=== PATIENT | female | born 1935 | race Caucasian/White ===

== ENCOUNTER → 2019-05-11 | Outpatient (CLI) | payer MEDICARE ==
[2017-12-06 11:06] VITALS: BP 126/90
[~2019-05-11] MED LIST: AMLO10TA8 PO; HYDR-3164 PO; INSU100I13 SQ; METF500T16 PO; NAPR-514 PO
[2019-05-11 12:27] LABS: BASO % 1 % (0-3); EOS # 0.1 x10^3/uL (0.0-0.7); EOS % 1 % (0-3); HEMATOCRIT 38.1 % (36.0-47.0); HEMOGLOBIN 12.6 g/dL (12.0-15.5); LYMPH # 2.4 x10^3/uL (1.0-4.8); LYMPH % 27 % (24-48); MEAN CORPUSCULAR HEMOGLOBIN 30 pg (25-35); MEAN CORPUSCULAR HGB CONC 33 g/dL (31-37); MEAN CORPUSCULAR VOLUME 90 fL (79-100); MONO # 0.8 x10^3/uL (0.0-1.1); MONO % 9 % (0-9); NEUT # 5.6 x10^3uL (1.8-7.7); NEUT % 63 % (31-73); PLATELET COUNT 265 x10^3/uL (140-400); RED BLOOD COUNT 4.24 x10^6/uL (3.50-5.40); RED CELL DISTRIBUTION WIDTH 13.7 % (11.5-14.5); WHITE BLOOD COUNT 8.9 x10^3/uL (4.0-11.0)
[2019-05-11 12:32] LABS: ALBUMIN 3.6 g/dL (3.4-5.0); ALBUMIN/GLOBULIN RATIO 0.8 (1.0-1.7); CALCIUM 9.7 mg/dL (8.5-10.1); CREATININE 0.9 mg/dL (0.6-1.0); GFR 59.9; POTASSIUM 4.6 mmol/L (3.5-5.1); TOTAL BILIRUBIN 0.3 mg/dL (0.2-1.0); TOTAL PROTEIN 8.1 g/dL (6.4-8.2); URIC ACID 5.7 mg/dL (2.6-6.0)
== END | disposition home or self-care (01) ==
LOC: LAB 11:27
PROVIDERS: ATTEND Podiatrist
DX: M10.072 Idiopathic gout, left ankle and foot (principal); R60.0 Localized edema
CPT/HCPCS: 36415; 80053; 84550; 85025

== ENCOUNTER 2020-06-11 07:37 | Emergency (ER) | payer MEDICARE ==
[~2020-06-11] VITALS: Ht 165.1 cm; Wt 100.0 kg
[~2020-06-11 07:37] MED LIST changes: +IBUP-1670 PO; +INSU100V6 SQ
--- NOTE | 2020-06-11 08:25 | RAD ---
Exam performed: CT scan of the head without contrast. Date of Service: 06/11/2020. Comparison: CT head without contrast from 03/16/2011. Clinical History: Right-sided weakness. Technique: Helical acquisitions are obtained from the foramen magnum to the vertex without intravenous administration of contrast. Findings: The ventricles are midline without evidence of dilatation. Normal crain-white differentiation is maintained. There is no extra axial fluid collection, intraparenchymal hemorrhage or mass lesion. The visualized portions of the orbits, paranasal sinuses and the mastoid air cells appear clear. The calvarium is intact. Impression: 1. No acute intracranial process detected. PQRS Compliance Statement: One or more of the following individualized dose reduction techniques were utilized for this examination: 1. Automated exposure control 2. Adjustment of the mA and/or kV according to patient size 3. Use of iterative reconstruction technique Electronically signed by: Shelby Castellanos MD (06/11/2020 8:22 AM) [id number]
[2020-06-11 08:28] LABS: BASO # 0.1 x10^3/uL (0.0-0.2); BASO % 1 % (0-3); EOS # 0.1 x10^3/uL (0.0-0.7); EOS % 1 % (0-3); HEMATOCRIT 35.7 % (36.0-47.0); HEMOGLOBIN 11.9 g/dL (12.0-15.5); LYMPH # 1.4 x10^3/uL (1.0-4.8); LYMPH % 14 % (24-48); MEAN CORPUSCULAR HEMOGLOBIN 30 pg (25-35); MEAN CORPUSCULAR HGB CONC 33 g/dL (31-37); MEAN CORPUSCULAR VOLUME 89 fL (79-100); MONO # 0.7 x10^3/uL (0.0-1.1); MONO % 8 % (0-9); NEUT # 7.6 x10^3/uL (1.8-7.7); NEUT % 77 % (31-73); PLATELET COUNT 260 x10^3/uL (140-400); RED CELL DISTRIBUTION WIDTH 14.2 % (11.5-14.5); WHITE BLOOD COUNT 9.9 x10^3/uL (4.0-11.0)
[2020-06-11 08:38] LABS: CALCIUM 9.2 mg/dL (8.5-10.1); CREATININE 1.2 mg/dL (0.6-1.0); GFR 42.9; POTASSIUM 4.5 mmol/L (3.5-5.1)
[2020-06-11 08:43] LABS: ALBUMIN 3.4 g/dL (3.4-5.0); ALBUMIN/GLOBULIN RATIO 0.9 (1.0-1.7); MAGNESIUM 1.9 mg/dL (1.8-2.4); TOTAL BILIRUBIN 0.3 mg/dL (0.2-1.0); TOTAL PROTEIN 7.1 g/dL (6.4-8.2)
[2020-06-11] MEDS ORDERED: dilTIAZem IV PUSH 25 MG/5 ML VIAL IVP ONE (10:15)
[2020-06-11] MEDS ORDERED: DILTIAZEM HCL 125 MG in IV NORMAL SALINE 100ML 100 ML IV PRN (10:15)
--- NOTE | 2020-06-11 11:54 | PHYS DOC ---
Past Medical History Past Medical History: Arthritis, Diabetes-Type II, Gallstones, Hypertension, Other Additional Past Medical Histor: SHINGLES Past Surgical History: Cholecystectomy, Tubal ligation Additional Past Surgical Histo: gallstones Smoking Status: Never Smoker Alcohol Use: None Drug Use: None General Adult EDM: Chief Complaint: WEAKNESS/GENERALIZED HPI: HPI: Patient is a 85 year old female who was brought here by EMS from home due to generalized weakness when she woke up this morning. Patient denies any local weakness, no nausea vomiting, no slurred speech, no headache. Patient had chronic hip problem, chronic back problem, when she woke up this morning she tried to get out of her bed but she was too weak to get out. Her family tried to get her out of the bed but they could not. EMS were called to assist. Patient was able to have out of her bed and then was able to ambulate around the house a little bit but still feels very weak so EMS brought her here for evaluation. Review of Systems: Review of Systems: Constitutional: Denies fever or chills. [] Eyes: Denies change in visual acuity. [] HENT: Denies nasal congestion or sore throat. [] Respiratory: Denies cough or shortness of breath. [] Cardiovascular: Denies chest pain or edema. [] GI: Denies abdominal pain, nausea, vomiting, bloody stools or diarrhea. [] : Denies dysuria. [] Musculoskeletal: Denies back pain or joint pain. [] Integument: Denies rash. [] Neurologic: Denies headache, focal weakness or sensory changes. [] Endocrine: Denies polyuria or polydipsia. [] Lymphatic: Denies swollen glands. [] Psychiatric: Denies depression or anxiety. [] Heart Score: Risk Factors: Risk Factors: DM, Current or recent (<one month) smoker, HTN, HLP, family history of CAD, obesity. Risk Scores: Score 0 - 3: 2.5% MACE over next 6 weeks - Discharge Home Score 4 - 6: 20.3% MACE over next 6 weeks - Admit for Clinical Observation Score 7 - 10: 72.7% MACE over next 6 weeks - Early Invasive Strategies Current Medications: Current Medications Medications (Trade) Dose Ordered Sig/[place] Start Time Stop Time Status Last Admin Dose Admin Diltiazem HCl (Cardizem Iv Push) 20 mg 1X ONCE 7/26/20 10:15 06/11/20 10:27 DC Diltiazem HCl 125 mg/Sodium Chloride 125 ml @ 5 mls/hr CONT PRN 06/11/20 10:15 06/11/20 10:27 DC Allergies: Allergies: Allergies Coded Allergies Type Severity Reaction Last Updated Verified No Known Drug Allergies 09/24/16 No Physical Exam: PE: Constitutional: Well developed, well nourished, no acute distress, non-toxic appearance. [] HENT: Normocephalic, atraumatic, bilateral external ears normal, oropharynx moist, no oral exudates, nose normal. [] Eyes: PERRLA, EOMI, conjunctiva normal, no discharge. [] Neck: Normal range of motion, no tenderness, supple, no stridor. [] Cardiovascular:Heart rate regular rhythm, no murmur [] Lungs & Thorax: Bilateral breath sounds clear to auscultation [] Abdomen: Bowel sounds normal, soft, no tenderness, no masses, no pulsatile masses. [] Skin: Warm, dry, no erythema, no rash. [] Back: No tenderness, no CVA tenderness. [] Extremities: No tenderness, no cyanosis, no clubbing, ROM intact, no edema. [] Neurologic: Alert and oriented X 3, normal motor function, normal sensory function, no focal deficits noted. Patient NIH stroke scale was 0, she was able to move all extremities without a problem, she was awake alert oriented to time place and person Psychologic: Affect normal, judgement normal, mood normal. [] Current Patient Data: Labs: Laboratory Tests Test 06/11/20 08:20 White Blood Count 9.9 x10^3/uL (4.0-11.0) Red Blood Count 4.00 x10^6/uL (3.50-5.40) Hemoglobin 11.9 g/dL (12.0-15.5) L Hematocrit 35.7 % (36.0-47.0) L Mean Corpuscular Volume 89 fL (79-100) Mean Corpuscular Hemoglobin 30 pg (25-35) Mean Corpuscular Hemoglobin Concent 33 g/dL (31-37) Red Cell Distribution Width 14.2 % (11.5-14.5) Platelet Count 260 x10^3/uL (140-400) Neutrophils (%) (Auto) 77 % (31-73) H Lymphocytes (%) (Auto) 14 % (24-48) L Monocytes (%) (Auto) 8 % (0-9) Eosinophils (%) (Auto) 1 % (0-3) Basophils (%) (Auto) 1 % (0-3) Neutrophils # (Auto) 7.6 x10^3/uL (1.8-7.7) Lymphocytes # (Auto) 1.4 x10^3/uL (1.0-4.8) Monocytes # (Auto) 0.7 x10^3/uL (0.0-1.1) Eosinophils # (Auto) 0.1 x10^3/uL (0.0-0.7) Basophils # (Auto) 0.1 x10^3/uL (0.0-0.2) Sodium Level 138 mmol/L (136-145) Potassium Level 4.5 mmol/L (3.5-5.1) Chloride Level 102 mmol/L (98-107) Carbon Dioxide Level 27 mmol/L (21-32) Anion Gap 9 (6-14) Blood Urea Nitrogen 34 mg/dL (7-20) H Creatinine 1.2 mg/dL (0.6-1.0) H Estimated GFR (Cockcroft-Gault) 42.9 BUN/Creatinine Ratio 28 (6-20) H Glucose Level 234 mg/dL (70-99) H Calcium Level 9.2 mg/dL (8.5-10.1) Magnesium Level 1.9 mg/dL (1.8-2.4) Total Bilirubin 0.3 mg/dL (0.2-1.0) Aspartate Amino Transferase (AST) 10 U/L (15-37) L Alanine Aminotransferase (ALT) 12 U/L (14-59) L Alkaline Phosphatase 103 U/L (46-116) Troponin I Quantitative 0.027 ng/mL (0.000-0.055) RS-Ogx-X-Type Natriuretic Peptide 578 pg/mL (0-449) H Total Protein 7.1 g/dL (6.4-8.2) Albumin 3.4 g/dL (3.4-5.0) Albumin/Globulin Ratio 0.9 (1.0-1.7) L Laboratory Tests 06/11/20 08:20 Laboratory Tests 06/11/20 08:20 Vital Signs: Vital Signs Date Time Temp Pulse Resp B/P (MAP) Pulse Ox O2 Delivery O2 Flow Rate FiO2 06/11/20 08:09 97.6 82 18 198/78 (118) 96 Room Air 97.6 EKG: EKG: EKG was read at 815, heart rate 76 bpm, normal sinus rhythm, no ST segment elevation. Radiology/Procedures: Radiology/Procedures: [][facility] [address] [place] [address] IMAGING REPORT Signed PATIENT: PHILLIP WHITTAKER JACCOUNT: [id number] : 1935 LOCATION: ER AGE: 85 SEX: F EXAM STATUS: REG ER ORD. PHYSICIAN: ALEE DAWSON DO REASON: left side weakness PROCEDURE: CT HEAD WO CONTRAST Exam performed: CT scan of the head without contrast. Date of Service: 06/11/2020. Comparison: CT head without contrast from 03/16/2011. Clinical History: Right-sided weakness. Technique: Helical acquisitions are obtained from the foramen magnum to the vertex without intravenous administration of contrast. Findings: The ventricles are midline without evidence of dilatation. Normal crain-white differentiation is maintained. There is no extra axial fluid collection, intraparenchymal hemorrhage or mass lesion. The visualized portions of the orbits, paranasal sinuses and the mastoid air cells appear clear. The calvarium is intact. Impression: 1. No acute intracranial process detected. PQRS Compliance Statement: One or more of the following individualized dose reduction techniques were utilized for this examination: 1. Automated exposure control 2. Adjustment of the mA and/or kV according to patient size 3. Use of iterative reconstruction technique Electronically signed by: Shelby Castellanos MD (06/11/2020 8:22 AM) [id number] DICTATED and SIGNED BY: SHELBY CASTELLANOS MD DATE: 06/11/20 0822 Course & Med Decision Making: Course & Med Decision Making Pertinent Labs and Imaging studies reviewed. (See chart for details) Patient is a 84-year-old female who was evaluated in ER due to left hip pain, generalized weakness when she woke up this morning. Patient condition improved significantly, she was able to get up and walk now. Patient denies any headache, no neck pain, no abdominal pain, no nausea vomiting. Patient had no focal neurological deficits. Patient did not had a stroke or strokelike symptoms. Patient NIH stroke scale was 0. Patient's son was here to take her home. Armanion Disclaimer: Lev Disclaimer: This electronic medical record was generated, in whole or in part, using a voice recognition dictation system. Departure Departure Impression: Primary Impression: Degenerative joint disease (DJD) of hip Additional Impression: Weakness Disposition: HOME, SELF-CARE Condition: STABLE Referrals: TIANA MANZO MD (PCP) PLEASE FOLLOW UP WITH YOUR DOCTOR NEEDED NEXT WEEK Patient Instructions: Arthritis, Degenerative-Brief, Weakness Justicifation of Admission Dx: Justifications for Admission: Justification of Admission Dx: N/A ALEE DAWSON DO Jun 11, 2020 11:54
[2020-06-11 12:06] VITALS: BP 178/78
--- NOTE | 2020-06-13 03:12 | EKG ---
[facility] [address] [place] [address] Test Date: 2020-06-11 Test Time: 08:14:33 Pat Name: PHILLIP WHITTAKER Department: Room: Gender: F Engineering And Operations Director: : 1935 Requested By: ALEE DAWSON Order Number: [id number] Reading MD: Measurements Intervals [place] Rate: 76 P: -43 [place]: 144 QRS: -6 QRSD: 94 T: 5 QT: 428 QTc: 486 Interpretive Statements SINUS RHYTHM LEFTWARD AXIS QRS(T) CONTOUR ABNORMALITY CONSIDER ANTEROSEPTAL MYOCARDIAL DAMAGE PROLONGED QT POSSIBLY ABNORMAL ECG RI6.01 No previous ECG available for comparison
== END 2020-06-11 12:28 | disposition home or self-care (01) ==
LOC: ER 07:37
DX: M16.12 Unilateral primary osteoarthritis, left hip (principal); R53.1 Weakness; R51 Headache; E11.9 Type 2 diabetes mellitus without complications; I10 Essential (primary) hypertension; Z90.49 Acquired absence of other specified parts of digestive tract; Z98.51 Tubal ligation status
CPT/HCPCS: 36415; 70450; 80053; 83735; 83880; 84484; 85025; 93005; 99285-25

== ENCOUNTER 2020-06-29 20:22 | Inpatient (IN) | payer MEDICARE ==
[~2020-06-29] VITALS: Ht 162.6 cm; Wt 97.1 kg
[2020-06-29] MEDS ORDERED: MORPHINE SULFATE 2 MG/ML VIAL. IV/SQ PRN (21:00)
[2020-06-29] MEDS ORDERED: VANCOMYCIN PER PHARMACY MC PRN (21:00)
[2020-06-29 21:12] LABS: BASO # 0.1 x10^3/uL (0.0-0.2); BASO % 1 % (0-3); EOS # 0.2 x10^3/uL (0.0-0.7); EOS % 2 % (0-3); HEMATOCRIT 34.9 % (36.0-47.0); HEMOGLOBIN 11.5 g/dL (12.0-15.5); LYMPH # 2.1 x10^3/uL (1.0-4.8); LYMPH % 20 % (24-48); MEAN CORPUSCULAR HEMOGLOBIN 30 pg (25-35); MEAN CORPUSCULAR HGB CONC 33 g/dL (31-37); MEAN CORPUSCULAR VOLUME 91 fL (79-100); MONO % 10 % (0-9); NEUT % 68 % (31-73); PLATELET COUNT 267 x10^3/uL (140-400); RED BLOOD COUNT 3.86 x10^6/uL (3.50-5.40); WHITE BLOOD COUNT 10.3 x10^3/uL (4.0-11.0)
[2020-06-29 21:21] LABS: CALCIUM 8.8 mg/dL (8.5-10.1); CREATININE 1.4 mg/dL (0.6-1.0); GFR 35.9
[2020-06-29 21:27] LABS: ALBUMIN/GLOBULIN RATIO 0.7 (1.0-1.7); TOTAL BILIRUBIN 0.3 mg/dL (0.2-1.0); TOTAL PROTEIN 7.3 g/dL (6.4-8.2)
[2020-06-29] MEDS ORDERED: PIPERACILLIN/TAZOBACTAM 4.5 GM in IV NORMAL SALINE 100ML 100 ML IV ONE (21:30)
--- NOTE | 2020-06-29 21:41 | RAD ---
Examination: Unilateral venous Doppler. Technique: Ultrasound evaluation of the left lower extremity was performed from the groin to the upper calf with kimbrough scale, spectral and color doppler evaluation. Indication: Leg swelling Findings: There is normal venous flow and compressibility of left common femoral vein, femoral vein, popliteal vein, and visualized proximal calf veins. Soft tissue swelling about the left lower extremity. Impression: No evidence for deep vein thrombosis of left lower extremity from the level of the calf veins to the groins. Electronically signed by: Tevin Castano MD (06/29/2020 9:38 PM) GABE
--- NOTE | 2020-06-29 21:48 | PHYS DOC ---
Past Medical History Past Medical History: Arthritis, Diabetes-Type II, Gallstones, Hypertension, Other Additional Past Medical Histor: SHINGLES (ZELDA ESPINOZA APRN) Past Surgical History: Cholecystectomy, Tubal ligation Additional Past Surgical Histo: gallstones (ZELDA ESPINOZA APRN) Smoking Status: Never Smoker Alcohol Use: None Drug Use: None (ZELDA ESPINOZA APRN) General Adult EDM: Chief Complaint: WOUND CHECK HPI: HPI: Patient is a 85 year old female with history of diabetes type 2, hypertension, morbidly obese, who presents to the ED today complaining of a wound on the left castanon that she noted 1 week ago. Patient reports it was a blister that opened up and has become a wound. Denies any fever. (ZELDA ESPINOZA APRN) Review of Systems: Review of Systems: Constitutional: Denies fever or chills. [] Eyes: Denies change in visual acuity. [] HENT: Denies nasal congestion or sore throat. [] Respiratory: Denies cough or shortness of breath. [] Cardiovascular: Denies chest pain or edema. [] GI: Denies abdominal pain, nausea, vomiting, bloody stools or diarrhea. [] : Denies dysuria. [] Musculoskeletal: Denies back pain or joint pain. [] Integument: Reports left castanon wound Neurologic: Denies headache, focal weakness or sensory changes. [] Endocrine: Denies polyuria or polydipsia. [] Lymphatic: Denies swollen glands. [] Psychiatric: Denies depression or anxiety. [] (ZELDA ESPINOZA APRN) Heart Score: Risk Factors: Risk Factors: DM, Current or recent (<one month) smoker, HTN, HLP, family history of CAD, obesity. Risk Scores: Score 0 - 3: 2.5% MACE over next 6 weeks - Discharge Home Score 4 - 6: 20.3% MACE over next 6 weeks - Admit for Clinical Observation Score 7 - 10: 72.7% MACE over next 6 weeks - Early Invasive Strategies (ZELDA ESPINOZA APRN) Current Medications: Current Medications Medications (Trade) Dose Ordered Sig/[place] Start Time Stop Time Status Last Admin Dose Admin Morphine Sulfate (Morphine Sulfate) 2 mg PRN Q15MIN PRN 06/29/20 21:00 06/30/20 20:59 Piperacillin Sod/ Tazobactam Sod 4.5 gm/Sodium Chloride 100 ml @ 200 mls/hr 1X ONCE 06/29/20 21:30 06/29/20 21:59 Sodium Chloride 1,000 ml @ 1,000 mls/hr Q1H 06/29/20 21:30 06/29/20 23:11 Vancomycin HCl (Vanco Per Pharmacy) 1 each PRN DAILY PRN 06/29/20 21:00 Vancomycin HCl 2 gm/Sodium Chloride 500 ml @ 250 mls/hr 1X ONCE 06/29/20 22:00 06/29/20 23:59 (ZELDA ESPINOZA APRN) Allergies: Allergies: Allergies Coded Allergies Type Severity Reaction Last Updated Verified No Known Drug Allergies 09/24/16 No (ZELDA ESPINOZA SECURITY CONTROLS ASSESSOR) Physical Exam: PE: Constitutional: Well developed, well nourished, no acute distress, non-toxic appearance. [] HENT: Normocephalic, atraumatic, bilateral external ears normal, oropharynx moist, no oral exudates, nose normal. [] Eyes: PERRLA, EOMI, conjunctiva normal, no discharge. [] Neck: Normal range of motion, no tenderness, supple, no stridor. [] Cardiovascular:Heart rate regular rhythm, no murmur [] Lungs & Thorax: Bilateral breath sounds clear to auscultation [] Abdomen: Bowel sounds normal, soft, no tenderness, no masses, no pulsatile masses. [] Skin: Left castanon with an open wound approximately 5 x 5 cm with surrounding cellulitis moderate in nature. +2 bilateral pedal pulses. Back: No tenderness, no CVA tenderness. [] Extremities: No tenderness, no cyanosis, no clubbing, ROM intact, no edema. [] Neurologic: Alert and oriented X 3, normal motor function, normal sensory function, no focal deficits noted. [] Psychologic: Affect normal, judgement normal, mood normal. [] (ZELDA ESPINOZA SECURITY CONTROLS ASSESSOR) Current Patient Data: Labs: Laboratory Tests Test 06/29/20 20:50 White Blood Count 10.3 x10^3/uL (4.0-11.0) Red Blood Count 3.86 x10^6/uL (3.50-5.40) Hemoglobin 11.5 g/dL (12.0-15.5) L Hematocrit 34.9 % (36.0-47.0) L Mean Corpuscular Volume 91 fL (79-100) Mean Corpuscular Hemoglobin 30 pg (25-35) Mean Corpuscular Hemoglobin Concent 33 g/dL (31-37) Red Cell Distribution Width 14.0 % (11.5-14.5) Platelet Count 267 x10^3/uL (140-400) Neutrophils (%) (Auto) 68 % (31-73) Lymphocytes (%) (Auto) 20 % (24-48) L Monocytes (%) (Auto) 10 % (0-9) H Eosinophils (%) (Auto) 2 % (0-3) Basophils (%) (Auto) 1 % (0-3) Neutrophils # (Auto) 7.0 x10^3/uL (1.8-7.7) Lymphocytes # (Auto) 2.1 x10^3/uL (1.0-4.8) Monocytes # (Auto) 1.0 x10^3/uL (0.0-1.1) Eosinophils # (Auto) 0.2 x10^3/uL (0.0-0.7) Basophils # (Auto) 0.1 x10^3/uL (0.0-0.2) Sodium Level 137 mmol/L (136-145) Potassium Level 4.0 mmol/L (3.5-5.1) Chloride Level 103 mmol/L (98-107) Carbon Dioxide Level 25 mmol/L (21-32) Anion Gap 9 (6-14) Blood Urea Nitrogen 30 mg/dL (7-20) H Creatinine 1.4 mg/dL (0.6-1.0) H Estimated GFR (Cockcroft-Gault) 35.9 BUN/Creatinine Ratio 21 (6-20) H Glucose Level 323 mg/dL (70-99) H Lactic Acid Level 1.3 mmol/L (0.4-2.0) Calcium Level 8.8 mg/dL (8.5-10.1) Total Bilirubin 0.3 mg/dL (0.2-1.0) Aspartate Amino Transferase (AST) 8 U/L (15-37) L Alanine Aminotransferase (ALT) 13 U/L (14-59) L Alkaline Phosphatase 107 U/L (46-116) Total Protein 7.3 g/dL (6.4-8.2) Albumin 3.0 g/dL (3.4-5.0) L Albumin/Globulin Ratio 0.7 (1.0-1.7) L Procalcitonin < 0.10 ng/mL (0.00-0.10) Laboratory Tests 06/29/20 20:50 Laboratory Tests 06/29/20 20:50 Vital Signs: Vital Signs Date Time Temp Pulse Resp B/P (MAP) Pulse Ox O2 Delivery O2 Flow Rate FiO2 06/29/20 20:30 97.9 80 18 222/80 (127) 100 Room Air 97.9 (ZELDA ESPINOZA APRN) EKG: EKG: [] (ZELDA ESPINOZA APRN) Radiology/Procedures: Radiology/Procedures: []PROCEDURE: VENOUS LOWER EXTREMITY LEFT Examination: Unilateral venous Doppler. Technique: Ultrasound evaluation of the left lower extremity was performed from the groin to the upper calf with kimbrough scale, spectral and color doppler evaluation. Indication: Leg swelling Findings: There is normal venous flow and compressibility of left common femoral vein, femoral vein, popliteal vein, and visualized proximal calf veins. Soft tissue swelling about the left lower extremity. Impression: No evidence for deep vein thrombosis of left lower extremity from the level of the calf veins to the groins. Electronically signed by: Tevin Montes MD (06/29/2020 9:38 PM) [facility] DICTATED and SIGNED BY: TEVIN MONTES MD DATE: 06/29/202137 (ZELDA ESPINOZA APRN) Course & Med Decision Making: Course & Med Decision Making Pertinent Labs and Imaging studies reviewed. (See chart for details) This is a 85-year-old female patient presenting to the ED today with an open infected wound on the left castanon. CBC with a normal WBC, lactic is normal, CMP with glucose of 325. Patient was started on the sepsis protocol. Patient will be admitted for IV antibiotics Spoke with Dr. Bonner who accepted patient for admission (ZELDA ESPINOZA APRN) Dragon Disclaimer: Dragon Disclaimer: This electronic medical record was generated, in whole or in part, using a voice recognition dictation system. (ZELDA ESPINOZA APRN) Dragon Disclaimer: I have personally interviewed and examined patient. All charts, labs and imaging studies were reviewed. I agreed with the PA/EXHIBIT SPECIALIST's findings, exam and plan of care (ALEE DAWSON DO) Departure Departure Impression: Primary Impression: Left leg cellulitis Disposition: ADMITTED INPATIENT Condition: STABLE Referrals: TIANA MANZO MD (PCP) Justicifation of Admission Dx: Justifications for Admission: Justification of Admission Dx: Yes Sepsis: Bacteremia (ZELDA ESPINOZA APRN) ZELDA ESPINOZA APRN Jun 29, 2020 21:48 ALEE DAWSON DO Jun 30, 2020 03:03
[2020-06-29] MEDS ORDERED: VANCOMYCIN 2 GM in IV NORMAL SALINE 500ML BAG 500 ML IV ONE (22:00)
[2020-06-29] MEDS: IV NORMAL SALINE 1000ML BAG 1,000 ML IV SCH ×2 (22:03→22:46)
--- NOTE | 2020-06-30 01:53 | NUR ---
Pharmacy Vancomycin Dosing Note S:Consulted to monitor and dose vancomycin started 06/29/20. O:PHILLIP WHITTAKER is a 85 year old F with Cellulitis . Height: 5 feet, 4 inches Weight: 81.8 kg Bell Body Weight: 54.70 Adjusted Body Weight: 65.54 Dosing Weight: Actual Other Antibiotics: ZOSYN X1 IN ER LABS: Last BUN: 30 Last Creatinine: 1.4 Creatinine Clearance: 30.5 mL/min Last WBC: 10.3 Last Procalcitonin: Tmax (past 24 hours): Microbiology: I/O: Drug Levels: Last level: on at Last dose given 06/29/20 at 2300 Vancomycin Dosing: Loading Dose: 2000 mg x1 Dosing Weight: Actual Target Trough: 10-20 A: Based on: WT AND CRCL P: 1. Begin Vancomycin 1250 mg IV q24h 2. Follow up Trough level on 07/01/20 at 2230 3. Pharmacy will continue to monitor, follow and adjust therapy as needed. FRANSISCO ROMAN RPH, 06/30/20 0153 Signed: 06/30/20 at 0153 by FRANSISCO ROMAN RPH PHA
--- NOTE | 2020-06-30 08:09 | NUR ---
This RN paged Dr. Bonner to obtain Sliding Scale Insulin orders.
[2020-06-30] MEDS ORDERED: DEXTROSE 50% 25 GM / 50ML DISP.SYRIN. IV PRN (08:30)
--- NOTE | 2020-06-30 09:00 | PDOC1 ---
History and Physical Date of Admission Date of Admission DATE: 06/30/20 TIME: 08:59 Identification/Chief Complaint Chief Complaint SEEN IN ER WITH CELLULITIS LEFT LEG 85 year old female with history of diabetes type 2, hypertension, morbidly obese, who presents to the ED today complaining of a wound on the left castanon that she noted 1 week ago. // blister that opened up and has become a wound. Denies any fever., CURRENTLY ON IV ZOSYN, VANC Past Medical History Past Medical History Past Medical History Past Medical History Past Medical History: Arthritis, Diabetes-Type II, Gallstones, Hypertension, Other Additional Past Medical Histor: SHINGLES Past Surgical History: Cholecystectomy, Tubal ligation Additional Past Surgical Histo: gallstones Smoking Status: Never Smoker Alcohol Use: None Drug Use: None fhx obesity Cardiovascular: HTN, Hyperlipidemia Pulmonary: Bronchitis GI: GERD Musculoskeletal: Osteoarthritis Infectious disease: No pertinent hx Renal/: No pertinent hx Endocrine: Diabetes Past Surgical History Past Surgical History: No pertinent history Family History Family History: No Significant, Hypertension Social History Smoke: No ALCOHOL: none Drugs: None Current Problem List Problem List Problems Medical Problems: (1) Left leg cellulitis Status: Acute Current Medications Current Medications Current Medications Sodium Chloride 1,000 ml @ 1,000 mls/hr Q1H IV Last administered on 06/29/20at 22:46; Start 06/29/20 at 21:30; Stop 06/29/20 at 23:11; Status DC Piperacillin Sod/ Tazobactam Sod 4.5 gm/Sodium Chloride 100 ml @ 200 mls/hr 1X ONCE IV Last administered on 06/29/20at 22:04; Start 06/29/20 at 21:30; Stop 06/29/20 at 21:59; Status DC Vancomycin HCl (Vanco Per Pharmacy) 1 each PRN DAILY PRN MC SEE COMMENTS Last administered on 06/30/20at 01:51; Start 06/29/20 at 21:00 Morphine Sulfate (Morphine Sulfate) 2 mg PRN Q15MIN PRN IV/SQ PAIN GREATER THAN 3/10 Last administered on 06/30/20at 05:32; Start 06/29/20 at 21:00; Stop 06/30/20 at 20:59 Vancomycin HCl 2 gm/Sodium Chloride 500 ml @ 250 mls/hr 1X ONCE IV Last administered on 8/13/20at 22:45; Start 06/29/20 at 22:00; Stop 06/29/20 at 23:59; Status DC Vancomycin HCl 1.25 gm/Sodium Chloride 250 ml @ 167 mls/hr Q24H IV ; Start 06/30/20 at 23:00 Vancomycin HCl (Vancomycin Trough Level) 1 each 1X ONCE MC ; Start 07/01/20 at 22:30; Stop 07/01/20 at 22:31 Insulin Human Lispro (HumaLOG) 0-5 UNITS TIDWMEALS SQ ; Start 06/30/20 at 12:00 Dextrose (Dextrose 50%-Water Syringe) 12.5 gm PRN Q15MIN PRN IV SEE COMMENTS; Start 06/30/20 at 08:30 Active Scripts Active Ibuprofen 200 Mg Tablet 600 Mg PO TIDAFTMEAL 14 Days [place] 5-325 Tablet (Acetaminophen/Hydrocodone Bitart) 1 Each Tablet 1 Tab PO PRN Q6HRS PRN Reported Humalog (Insulin Lispro) 100 Unit/1 Ml Vial 0 SQ SSI Lantus Solostar (Insulin Glargine,Hum.rec.anlog) 100 Unit/1 Ml Insuln.pen 20 Unit SQ QHS Amlodipine Besylate 10 Mg Tablet 10 Mg PO DAILY Metformin Hcl 500 Mg Tablet 500 Mg PO BIDWMEALS Allergies Allergies: Coded Allergies: No Known Drug Allergies (Unverified , 09/24/16) ROS Review of System Constitutional: Denies fever or chills. [] Eyes: Denies change in visual acuity. [] HENT: Denies nasal congestion or sore throat. [] Respiratory: Denies cough or shortness of breath. [] Cardiovascular: Denies chest pain or edema. [] GI: Denies abdominal pain, nausea, vomiting, bloody stools or diarrhea. [] : Denies dysuria. [] Musculoskeletal: Denies back pain or joint pain. [] Integument: Reports left castanon wound Neurologic: Denies headache, focal weakness or sensory changes. [] Endocrine: Denies polyuria or polydipsia. [] Lymphatic: Denies swollen glands. [] Psychiatric: Denies depression or anxiety. [] 14 PT ROS OTHERWISE NEG Physical Exam Physical Exam Constitutional: Well developed, well nourished, no acute distress, non-toxic appearance. [] HENT: Normocephalic, atraumatic, bilateral external ears normal, oropharynx moist, no oral exudates, nose normal. [] Eyes: PERRLA, EOMI, conjunctiva normal, no discharge. [] Neck: Normal range of motion, no tenderness, supple, no stridor. [] Cardiovascular:Heart rate regular rhythm, no murmur [] Lungs & Thorax: Bilateral breath sounds clear to auscultation [] Abdomen: Bowel sounds normal, soft, no tenderness, no masses, no pulsatile masses. [] Skin: Left castanon with an open wound approximately 5 x 5 cm with surrounding cellulitis moderate in nature. +2 bilateral pedal pulses. Back: No tenderness, no CVA tenderness. [] Extremities: No tenderness, no cyanosis, no clubbing, ROM intact, no edema. [] Neurologic: Alert and oriented X 3, normal motor function, normal sensory function, no focal deficits noted. [] Psychologic: Affect normal, judgement normal, mood normal. [] General: Alert, Oriented X3, Cooperative, No acute distress HEENT: Atraumatic, EOMI, Mucous membr. moist/pink Lungs: Clear to auscultation, Normal air movement Heart: RRR Breasts: Not examined Abdomen: Soft Rectal Exam: not examined PELVIC: Examination not indicated Neuro: Normal speech, Strength at 5/5 X4 ext, Sensation intact, Cranial nerves 3-12 NL Psych/Mental Status: Mental status NL, Mood NL Vitals Vitals Vital Signs Date Time Temp Pulse Resp B/P (MAP) Pulse Ox O2 Delivery O2 Flow Rate FiO2 06/30/20 05:32 18 99 Room Air 06/30/20 05:05 66 156/64 (94) 06/29/20 20:30 97.9 97.9 Labs Labs Laboratory Tests Test 06/29/20 20:50 06/30/20 07:52 White Blood Count 10.3 x10^3/uL (4.0-11.0) Red Blood Count 3.86 x10^6/uL (3.50-5.40) Hemoglobin 11.5 g/dL (12.0-15.5) Hematocrit 34.9 % (36.0-47.0) Mean Corpuscular Volume 91 fL (79-100) Mean Corpuscular Hemoglobin 30 pg (25-35) Mean Corpuscular Hemoglobin Concent 33 g/dL (31-37) Red Cell Distribution Width 14.0 % (11.5-14.5) Platelet Count 267 x10^3/uL (140-400) Neutrophils (%) (Auto) 68 % (31-73) Lymphocytes (%) (Auto) 20 % (24-48) Monocytes (%) (Auto) 10 % (0-9) Eosinophils (%) (Auto) 2 % (0-3) Basophils (%) (Auto) 1 % (0-3) Neutrophils # (Auto) 7.0 x10^3/uL (1.8-7.7) Lymphocytes # (Auto) 2.1 x10^3/uL (1.0-4.8) Monocytes # (Auto) 1.0 x10^3/uL (0.0-1.1) Eosinophils # (Auto) 0.2 x10^3/uL (0.0-0.7) Basophils # (Auto) 0.1 x10^3/uL (0.0-0.2) Sodium Level 137 mmol/L (136-145) Potassium Level 4.0 mmol/L (3.5-5.1) Chloride Level 103 mmol/L (98-107) Carbon Dioxide Level 25 mmol/L (21-32) Anion Gap 9 (6-14) Blood Urea Nitrogen 30 mg/dL (7-20) Creatinine 1.4 mg/dL (0.6-1.0) Estimated GFR (Cockcroft-Gault) 35.9 BUN/Creatinine Ratio 21 (6-20) Glucose Level 323 mg/dL (70-99) Lactic Acid Level 1.3 mmol/L (0.4-2.0) Calcium Level 8.8 mg/dL (8.5-10.1) Total Bilirubin 0.3 mg/dL (0.2-1.0) Aspartate Amino Transf (AST/SGOT) 8 U/L (15-37) Alanine Aminotransferase (ALT/SGPT) 13 U/L (14-59) Alkaline Phosphatase 107 U/L (46-116) Total Protein 7.3 g/dL (6.4-8.2) Albumin 3.0 g/dL (3.4-5.0) Albumin/Globulin Ratio 0.7 (1.0-1.7) Procalcitonin < 0.10 ng/mL (0.00-0.10) Glucose (Fingerstick) 169 mg/dL (70-99) Laboratory Tests Test 06/29/20 20:50 06/30/20 07:52 White Blood Count 10.3 x10^3/uL (4.0-11.0) Red Blood Count 3.86 x10^6/uL (3.50-5.40) Hemoglobin 11.5 g/dL (12.0-15.5) Hematocrit 34.9 % (36.0-47.0) Mean Corpuscular Volume 91 fL (79-100) Mean Corpuscular Hemoglobin 30 pg (25-35) Mean Corpuscular Hemoglobin Concent 33 g/dL (31-37) Red Cell Distribution Width 14.0 % (11.5-14.5) Platelet Count 267 x10^3/uL (140-400) Neutrophils (%) (Auto) 68 % (31-73) Lymphocytes (%) (Auto) 20 % (24-48) Monocytes (%) (Auto) 10 % (0-9) Eosinophils (%) (Auto) 2 % (0-3) Basophils (%) (Auto) 1 % (0-3) Neutrophils # (Auto) 7.0 x10^3/uL (1.8-7.7) Lymphocytes # (Auto) 2.1 x10^3/uL (1.0-4.8) Monocytes # (Auto) 1.0 x10^3/uL (0.0-1.1) Eosinophils # (Auto) 0.2 x10^3/uL (0.0-0.7) Basophils # (Auto) 0.1 x10^3/uL (0.0-0.2) Sodium Level 137 mmol/L (136-145) Potassium Level 4.0 mmol/L (3.5-5.1) Chloride Level 103 mmol/L (98-107) Carbon Dioxide Level 25 mmol/L (21-32) Anion Gap 9 (6-14) Blood Urea Nitrogen 30 mg/dL (7-20) Creatinine 1.4 mg/dL (0.6-1.0) Estimated GFR (Cockcroft-Gault) 35.9 BUN/Creatinine Ratio 21 (6-20) Glucose Level 323 mg/dL (70-99) Lactic Acid Level 1.3 mmol/L (0.4-2.0) Calcium Level 8.8 mg/dL (8.5-10.1) Total Bilirubin 0.3 mg/dL (0.2-1.0) Aspartate Amino Transf (AST/SGOT) 8 U/L (15-37) Alanine Aminotransferase (ALT/SGPT) 13 U/L (14-59) Alkaline Phosphatase 107 U/L (46-116) Total Protein 7.3 g/dL (6.4-8.2) Albumin 3.0 g/dL (3.4-5.0) Albumin/Globulin Ratio 0.7 (1.0-1.7) Procalcitonin < 0.10 ng/mL (0.00-0.10) Glucose (Fingerstick) 169 mg/dL (70-99) Images Images Exam performed: CT scan of the head without contrast. Date of Service: 06/11/2020. Comparison: CT head without contrast from 03/16/2011. Clinical History: Right-sided weakness. Technique: Helical acquisitions are obtained from the foramen magnum to the vertex without intravenous administration of contrast. Findings: The ventricles are midline without evidence of dilatation. Normal crain-white differentiation is maintained. There is no extra axial fluid collection, intraparenchymal hemorrhage or mass lesion. The visualized portions of the orbits, paranasal sinuses and the mastoid air cells appear clear. The calvarium is intact. Impression: 1. No acute intracranial process detected. RS Compliance Statement: One or more of the following individualized dose reduction techniques were utilized for this examination: 1. Automated exposure control 2. Adjustment of the mA and/or kV according to patient size 3. Use of iterative reconstruction technique Electronically signed by: Shelby Castellanos MD (06/11/2020 8:22 AM) [id number] DICTATED and SIGNED BY: SHELBY CASTELLANOS MD DATE: 06/11/20 0822 Examination: Unilateral venous Doppler. Technique: Ultrasound evaluation of the left lower extremity was performed from the groin to the upper calf with kimbrough scale, spectral and color doppler evaluation. Indication: Leg swelling Findings: There is normal venous flow and compressibility of left common femoral vein, femoral vein, popliteal vein, and visualized proximal calf veins. Soft tissue swelling about the left lower extremity. Impression: No evidence for deep vein thrombosis of left lower extremity from the level of the calf veins to the groins. Electronically signed by: Tevin Montes MD (06/29/2020 9:38 PM) [facility] DICTATED and SIGNED BY: TEVIN MONTES MD DATE: 06/29/202137 VTE Prophylaxis Ordered VTE Prophylaxis Devices: No VTE Pharmacological Prophylaxi: Yes Assessment/Plan Assessment/Plan Impression: Left leg cellulitis DIABETES OBESITY REMOTE TKA LEFT KNEE 2017 ADMITTED Wound care nurse consult emperic iv antibiotics arterial doppler both legs id consult DVT PROPHYLAXIS ACCUCHECKS Justicifation of Admission Dx: Justifications for Admission: Justification of Admission Dx: Yes Sepsis: Bacteremia QUINTEN MANCILLA MD Jun 30, 2020 09:00
[2020-06-30] MEDS: INSULIN LISPRO 300 UNITS/3 ML VIAL. SQ SCH ×2 (09:04→12:24)
[2020-06-30 10:24] LABS: CREATININE 1.1 mg/dL (0.6-1.0); GFR 47.4
[2020-06-30] MEDS ORDERED: PIP/TAZO PER PHARMACY MC PRN (10:30)
[2020-06-30] MEDS ORDERED: PIPERACILLIN/TAZOBACTAM 3.375 GM in IV NORMAL SALINE 50ML 50 ML IV SCH (11:00)
[2020-06-30] MEDS: PIPERACILLIN/TAZOBACTAM 3.375 GM in IV NORMAL SALINE 50ML 50 ML IV SCH ×3 (11:21→23:40)
[2020-06-30] MEDS ORDERED: guaiFENesin ORAL 200 MG/10 ML LIQUID. PO PRN (13:30)
[2020-06-30] MEDS ORDERED: DOCUSATE SODIUM 100 MG CAPSULE. PO PRN (13:30)
[2020-06-30] MEDS ORDERED: 0.9 % SODIUM CHLORIDE 10 ML DISP.SYRIN. IV PRN (13:30)
[2020-06-30] MEDS ORDERED: MAG HYDROX/ALUMINUM HYD/SIMETH 30 ML ORAL.SUSP PO PRN (13:30)
[2020-06-30] MEDS ORDERED: ACETAMINOPHEN 325 MG TABLET. PO PRN (13:30)
[2020-06-30] MEDS ORDERED: cloNIDine HCL 0.1 MG TABLET PO PRN (13:30)
[2020-06-30] MEDS ORDERED: ALBUTEROL SULFATE 2.5 MG/3 ML NEBU. NEB PRN (13:30)
[2020-06-30] MEDS ORDERED: SODIUM PHOSPHATES 19/7GM 133 ML ENEMA. PR PRN (13:30)
[2020-06-30] MEDS ORDERED: ONDANSETRON PF 4 MG/2 ML VIAL. IV PRN (13:30)
[2020-06-30 14:30] VITALS: BP 126/71
[2020-06-30] MEDS: ENOXAPARIN 40 MG/0.4 ML SYRINGE. SQ SCH (16:35)
--- NOTE | 2020-06-30 16:40 | NUR ---
Wound Care: Patient seen per wound care consult. See wound assessment. Wound appears to be open blister with dry skin; wound cleansed and assessed. Recommendations for xeroform gauze, ABD pad, and kerlix. Wound dressed. No other wounds noted at this time. Dressing change instructions left in room. Spoke with RN regarding POC. Bed lowered and call light in reach. Will follow patient regarding wound care.
[2020-06-30] MEDS ORDERED: ASPI325T8 PO (16:47)
[2020-06-30] MEDS ORDERED: AMLO5TAB10 PO (16:47)
[2020-06-30 19:00] VITALS: BP 149/77
--- NOTE | 2020-06-30 21:31 | RAD ---
Exam: Ultrasound bilateral lower extremity duplex arterial Indication: Left lower extremity wound. Peripheral vascular disease Technique: Real-time grayscale and color Doppler images of the bilateral lower extremities were obtained by the department fish egg packer. Comparisons: None FINDINGS: Systolic velocities as follows: Right: [employer] CLERK: 228 DFA: 126 SFA proximal: 175 SFA mid: 210 SFA distal: 148 Popliteal: 84 [employer] proximal: 160 [employer] distal: 168 Peroneal: 68 ANEUDY: 74 DPA: 113 Left: [employer] CLERK: 240 DFA: 123 SFA proximal: 169 SFA mid: 193 SFA distal: 156 Popliteal: 202 [employer] proximal: 148 [employer] distal: 156 Peroneal: 67 ANEUDY: 91 DPA: 109 Triphasic waveforms noted throughout the bilateral lower extremities IMPRESSION: Patent bilateral lower extremity arterial vasculature without evidence of stenosis. Electronically signed by: Dolly Talamantes MD (06/30/2020 9:28 PM) [id number]
[2020-06-30] MEDS: INSULIN GLARGINE SYRINGE. SQ SCH (21:40)
[2020-06-30 23:00] VITALS: BP 158/56
[2020-06-30] MEDS ORDERED: VANCOMYCIN 1.25 GM in IV NORMAL SALINE 250ML 250 ML IV SCH (23:00)
[2020-07-01 03:00] VITALS: BP 149/60
[2020-07-01] MEDS: PIPERACILLIN/TAZOBACTAM 3.375 GM in IV NORMAL SALINE 50ML 50 ML IV SCH ×2 (06:09→12:00)
[2020-07-01 07:00] VITALS: BP 161/67
[2020-07-01] MEDS: amLODIPine BESYLATE 10 MG TABLET PO SCH (08:33)
[2020-07-01] MEDS: INSULIN LISPRO 300 UNITS/3 ML VIAL. SQ SCH ×3 (08:43→18:02)
[2020-07-01 09:00] LABS: CREATININE 1.3 mg/dL (0.6-1.0); GFR 39.1
[2020-07-01 11:00] VITALS: BP 138/51
--- NOTE | 2020-07-01 12:13 | PDOC ---
PROGRESS NOTES Date of Service: DATE: 07/01/20 TIME: 12:12 Chief Complaint Chief Complaint Left leg cellulitis in DM2, DIABETES 2, poor control obese, BMI 37 Prior TKA LEFT KNEE 2017 weakness and debility History of Present Illness History of Present Illness Wound care nurse consult following, star PT and ot emperic iv antibiotics arterial doppler both legs id consult DVT PROPHYLAXIS ACCUCHECKS Vitals Vitals Vital Signs Date Time Temp Pulse Resp B/P (MAP) Pulse Ox O2 Delivery O2 Flow Rate FiO2 07/01/20 11:00 97.4 63 18 138/51 (80) 100 Room Air 97.4 Physical Exam General: Alert, Oriented X3, Cooperative, No acute distress Heart: Regular rate Lungs: Clear, Other Abdomen: Soft Labs LABS Laboratory Tests Test 06/30/20 16:26 06/30/20 20:09 07/01/20 07:52 07/01/20 08:30 Glucose (Fingerstick) 181 mg/dL (70-99) 275 mg/dL (70-99) 158 mg/dL (70-99) Creatinine 1.3 mg/dL (0.6-1.0) Estimated GFR (Cockcroft-Gault) 39.1 Test 07/01/20 11:49 Glucose (Fingerstick) 148 mg/dL (70-99) Review of Systems Review of Systems no nv.d feels better, appetite OK Assessment and Plan Assessmemt and Plan Problems Medical Problems: (1) Left leg cellulitis Status: Acute Comment Review of Relevant I have reviewed the following items noam (where applicable) has been applied. Labs Laboratory Tests Test 06/29/20 20:50 06/30/20 07:52 06/30/20 10:00 06/30/20 11:59 White Blood Count 10.3 x10^3/uL (4.0-11.0) Red Blood Count 3.86 x10^6/uL (3.50-5.40) Hemoglobin 11.5 g/dL (12.0-15.5) Hematocrit 34.9 % (36.0-47.0) Mean Corpuscular Volume 91 fL (79-100) Mean Corpuscular Hemoglobin 30 pg (25-35) Mean Corpuscular Hemoglobin Concent 33 g/dL (31-37) Red Cell Distribution Width 14.0 % (11.5-14.5) Platelet Count 267 x10^3/uL (140-400) Neutrophils (%) (Auto) 68 % (31-73) Lymphocytes (%) (Auto) 20 % (24-48) Monocytes (%) (Auto) 10 % (0-9) Eosinophils (%) (Auto) 2 % (0-3) Basophils (%) (Auto) 1 % (0-3) Neutrophils # (Auto) 7.0 x10^3/uL (1.8-7.7) Lymphocytes # (Auto) 2.1 x10^3/uL (1.0-4.8) Monocytes # (Auto) 1.0 x10^3/uL (0.0-1.1) Eosinophils # (Auto) 0.2 x10^3/uL (0.0-0.7) Basophils # (Auto) 0.1 x10^3/uL (0.0-0.2) Sodium Level 137 mmol/L (136-145) Potassium Level 4.0 mmol/L (3.5-5.1) Chloride Level 103 mmol/L (98-107) Carbon Dioxide Level 25 mmol/L (21-32) Anion Gap 9 (6-14) Blood Urea Nitrogen 30 mg/dL (7-20) Creatinine 1.4 mg/dL (0.6-1.0) 1.1 mg/dL (0.6-1.0) Estimated GFR (Cockcroft-Gault) 35.9 47.4 BUN/Creatinine Ratio 21 (6-20) Glucose Level 323 mg/dL (70-99) Lactic Acid Level 1.3 mmol/L (0.4-2.0) Calcium Level 8.8 mg/dL (8.5-10.1) Total Bilirubin 0.3 mg/dL (0.2-1.0) Aspartate Amino Transf (AST/SGOT) 8 U/L (15-37) Alanine Aminotransferase (ALT/SGPT) 13 U/L (14-59) Alkaline Phosphatase 107 U/L (46-116) Total Protein 7.3 g/dL (6.4-8.2) Albumin 3.0 g/dL (3.4-5.0) Albumin/Globulin Ratio 0.7 (1.0-1.7) Procalcitonin < 0.10 ng/mL (0.00-0.10) Glucose (Fingerstick) 169 mg/dL (70-99) 159 mg/dL (70-99) Test 06/30/20 16:26 06/30/20 20:09 07/01/20 07:52 07/01/20 08:30 Glucose (Fingerstick) 181 mg/dL (70-99) 275 mg/dL (70-99) 158 mg/dL (70-99) Creatinine 1.3 mg/dL (0.6-1.0) Estimated GFR (Cockcroft-Gault) 39.1 Test 07/01/20 11:49 Glucose (Fingerstick) 148 mg/dL (70-99) Laboratory Tests Test 06/30/20 16:26 06/30/20 20:09 07/01/20 07:52 07/01/20 08:30 Glucose (Fingerstick) 181 mg/dL (70-99) 275 mg/dL (70-99) 158 mg/dL (70-99) Creatinine 1.3 mg/dL (0.6-1.0) Estimated GFR (Cockcroft-Gault) 39.1 Test 07/01/20 11:49 Glucose (Fingerstick) 148 mg/dL (70-99) Microbiology 06/29/20 Blood Culture - Preliminary, Resulted NO GROWTH AFTER 1 DAY Medications Current Medications Sodium Chloride 1,000 ml @ 1,000 mls/hr Q1H IV Last administered on 06/29/20at 22:46; Start 06/29/20 at 21:30; Stop 06/29/20 at 23:11; Status DC Piperacillin Sod/ Tazobactam Sod 4.5 gm/Sodium Chloride 100 ml @ 200 mls/hr 1X ONCE IV Last administered on 06/29/20at 22:04; Start 06/29/20 at 21:30; Stop 06/29/20 at 21:59; Status DC Vancomycin HCl (Vanco Per Pharmacy) 1 each PRN DAILY PRN MC SEE COMMENTS Last administered on 06/30/20at 01:51; Start 06/29/20 at 21:00 Morphine Sulfate (Morphine Sulfate) 2 mg PRN Q15MIN PRN IV/SQ PAIN GREATER THAN 3/10 Last administered on 06/30/20at 05:32; Start 06/29/20 at 21:00; Stop 06/30/20 at 20:59; Status DC Vancomycin HCl 2 gm/Sodium Chloride 500 ml @ 250 mls/hr 1X ONCE IV Last administered on 06/29/20at 22:45; Start 06/29/20 at 22:00; Stop 06/29/20 at 23:59; Status DC Vancomycin HCl 1.25 gm/Sodium Chloride 250 ml @ 167 mls/hr Q24H IV Last administered on 06/30/20at 23:41; Start 06/30/20 at 23:00 Vancomycin HCl (Vancomycin Trough Level) 1 each 1X ONCE MC ; Start 07/01/20 at 22:30; Stop 07/01/20 at 22:31 Insulin Human Lispro (HumaLOG) 0-5 UNITS TIDWMEALS SQ Last administered on 07/01/20at 08:43; Start 06/30/20 at 12:00 Dextrose (Dextrose 50%-Water Syringe) 12.5 gm PRN Q15MIN PRN IV SEE COMMENTS; Start 06/30/20 at 08:30 Piperacillin Sod/ Tazobactam Sod (Zosyn Per Pharmacy) 1 each PRN DAILY PRN MC SEE COMMENTS; Start 06/30/20 at 10:30 Piperacillin Sod/ Tazobactam Sod 3.375 gm/Sodium Chloride 50 ml @ 100 mls/hr Q6HRS IV ; Start 06/30/20 at 11:00; Status Cancel Piperacillin Sod/ Tazobactam Sod 3.375 gm/Sodium Chloride 50 ml @ 100 mls/hr Q6HRS IV Last administered on 07/01/20at 06:09; Start 06/30/20 at 11:00 Sodium Chloride (Normal Saline Flush) 3 ml QSHIFT PRN IV AFTER MEDS AND BLOOD DRAWS; Start 06/30/20 at 13:30 Ondansetron HCl (Zofran) 4 mg PRN Q4HRS PRN IV NAUSEA/VOMITING; Start 06/30/20 at 13:30 Acetaminophen (Tylenol) 650 mg PRN Q4HRS PRN PO TEMP OVER 100.4F OR MILD PAIN; Start 06/30/20 at 13:30 Al Hydroxide/Mg Hydroxide (Mylanta Plus Xs) 30 ml PRN DAILY PRN PO HEARTBURN / GAS; Start 06/30/20 at 13:30 Clonidine HCl (Catapres) 0.1 mg PRN Q6HRS PRN PO SBP>160 OR DBP>90; Start 06/30/20 at 13:30 Sodium Monofluorophosphate (Fleet Adult) [address] CONSTIPATION; Start 06/30/20 at 13:30 Docusate Sodium (Colace) 100 mg PRN BID PRN PO HARD STOOLS; Start 06/30/20 at 13:30 Albuterol Sulfate (Ventolin Neb Soln) 2.5 mg PRN Q4HRS PRN NEB SHORTNESS OF BREATH; Start 06/30/20 at 13:30 Guaifenesin (Robitussin) 200 mg PRN Q4HRS PRN PO COUGH; Start 06/30/20 at 13:30 Enoxaparin Sodium (Lovenox 40mg Syringe) 40 mg Q24H SQ Last administered on 06/30/20at 16:35; Start 06/30/20 at 14:00 Amlodipine Besylate (Norvasc) 10 mg DAILY PO Last administered on 07/01/20at 08:33; Start 07/01/20 at 09:00 Acetaminophen/ Hydrocodone Bitart (Lortab 5/325) 1 tab PRN Q6HRS PRN PO MODERATE PAIN; Start 06/30/20 at 13:30 Insulin Glargine (Lantus Syringe) 20 unit QHS SQ Last administered on 06/30/20at 21:40; Start 06/30/20 at 21:00 Active Scripts Active Ibuprofen 200 Mg Tablet 600 Mg PO TIDAFTMEAL 14 Days [place] 5-325 Tablet (Acetaminophen/Hydrocodone Bitart) 1 Each Tablet 1 Tab PO PRN Q6HRS PRN Reported Aspirin 325 Mg Tablet 1 Tab PO DAILY Amlodipine Besylate 5 Mg Tablet 5 Mg PO BID Humalog (Insulin Lispro) 100 Unit/1 Ml Vial 0 SQ SSI Lantus Solostar (Insulin Glargine,Hum.rec.anlog) 100 Unit/1 Ml Insuln.pen 12 Unit SQ QHS Metformin Hcl 500 Mg Tablet 500 Mg PO BIDWMEALS Vitals/I & O Vital Sign - Last 24 Hours 06/30/20 06/30/20 06/30/20 06/30/20 13:05 14:20 14:30 16:47 Temp 98.4 98.4 Pulse 70 73 Resp 20 B/P (MAP) 163/77 (105) 126/71 (89) Pulse Ox 100 95 97 O2 Delivery Room Air Room Air Room Air Room Air 06/30/20 06/30/20 06/30/20 07/01/20 19:00 20:00 23:00 03:00 Temp 98.5 98.5 98.7 98.5 98.5 98.7 Pulse 102 75 55 Resp 18 18 17 B/P (MAP) 149/77 (101) 158/56 (90) 149/60 (89) Pulse Ox 96 95 94 O2 Delivery Room Air Room Air Room Air Room Air 07/01/20 07/01/20 07/01/20 07/01/20 07:00 08:00 08:33 11:00 Temp 97.7 97.4 97.7 97.4 Pulse 61 61 63 Resp 18 18 B/P (MAP) 161/67 (98) 161/67 138/51 (80) Pulse Ox 98 100 O2 Delivery Room Air Room Air Room Air Intake and Output 06/30/20 06/30/20 07/01/20 15:00 23:00 07:00 Intake Total 50 ml Output Total 0 ml Balance 50 ml 0 ml Justicifation of Admission Dx: Justifications for Admission: Justification of Admission Dx: Yes Sepsis: Bacteremia PAM ROGERS MD Jul 01, 2020 12:13
--- NOTE | 2020-07-01 13:42 | PDOC ---
Infectious Disease Note Vital Sign Vital Signs Vital Signs Date Time Temp Pulse Resp B/P (MAP) Pulse Ox O2 Delivery O2 Flow Rate FiO2 07/01/20 11:00 97.4 63 18 138/51 (80) 100 Room Air 97.4 Labs Lab Laboratory Tests Test 06/30/20 16:26 06/30/20 20:09 07/01/20 07:52 07/01/20 08:30 Glucose (Fingerstick) 181 mg/dL (70-99) 275 mg/dL (70-99) 158 mg/dL (70-99) Creatinine 1.3 mg/dL (0.6-1.0) Estimated GFR (Cockcroft-Gault) 39.1 Test 07/01/20 11:49 Glucose (Fingerstick) 148 mg/dL (70-99) Micro Microbiology 06/29/20 Blood Culture - Preliminary, Resulted NO GROWTH AFTER 1 DAY Objective Assessment Cellulitis and superficial ulceration of left lower leg. -US no evidence DVT or stenosis Renal insufficiency Diabetes Obesity Callous left heel Hypertension h/o Left TKA Plan Plan of Care d/c vancomycin change Zosyn to Ceftriaxone Local wound care as directed Pain management per primary Off load heels Follow-up BC, neg to date Supportive care Full consult to follow Thank you Attending Co-Sign The patient was seen and interviewed as well as examined at the bedside with VEHICLE TECHNICIAN. The chart was reviewed. The case was discussed. Agree with the plan of care. PRISCA WASHINGTON APRN Jul 01, 2020 13:42 APOORVA ANGEL MD Jul 01, 2020 14:42
[2020-07-01] MEDS: ENOXAPARIN 40 MG/0.4 ML SYRINGE. SQ SCH ×2 (14:00→15:55)
[2020-07-01 15:00] VITALS: BP 156/51
[2020-07-01] MEDS: cefTRIAXone IV Push 2 GM VIAL. IVP SCH (15:55)
--- NOTE | 2020-07-01 17:53 | CONS ---
DATE OF CONSULTATION: 07/01/2020 REFERRING PHYSICIAN: Dr. Sutton. REASON FOR CONSULTATION: Leg wound. HISTORY OF PRESENT ILLNESS: This patient is an 85-year-old female with a history of obesity, and diabetes, who presented with left leg wound. The patient says about a week ago, she developed dry itchy skin. She self-treated with lotion. Unfortunately, the area became worse, prompting ER visit. There was no evidence of DVT or stenosis on imaging. She was admitted and started on vancomycin and Zosyn. PAST MEDICAL HISTORY: Hypertension, gallstones, arthritis, diabetes, obesity, and history of shingles. PAST SURGICAL HISTORY: Left total knee replacement, cholecystectomy, and tubal ligation. FAMILY HISTORY: Hypertension. SOCIAL HISTORY: The patient lives at home with her son and daughter. She does not smoke. ALLERGIES: No known drug allergies. MEDICATIONS Reviewed on the MAR and includes vancomycin and Zosyn. REVIEW OF SYSTEMS: The patient complains of pain mostly in her left heel though. She says she usually has some swelling in her left leg since having a TKA a few years ago. She denies fevers, chills, sweats or body aches. Denies nausea, vomiting or diarrhea. Denies dysuria. Other review of systems are negative. PHYSICAL EXAMINATION: VITAL SIGNS: Temperature is 97.4, blood pressure 138/51, heart rate 63, respiratory rate 18, pulse oximetry is 100% on room air. GENERAL: The patient is propped up in bed, alert, no apparent distress. HEENT: Pupils equally round. Oropharynx pink and moist. No lesions seen. NECK: Supple. LUNGS: Clear to auscultation. HEART: S1, S2. ABDOMEN: Obese, soft, nontender with bowel sounds present. EXTREMITIES: Unremarkable except left lower extremity mildly swollen. She has a fairly superficial irregular shaped ulceration anterior castanon with surrounding erythema. She has a callus of the left heel. Left knee without warmth, swelling. She has a scar, well healed. SKIN: Warm to touch. No signs of rash. NEUROLOGIC: Currently answering questions appropriately. LABORATORY DATA: Labs from 06/29/2020: WBC 10.3, hemoglobin 11.5, platelets 267,000. Creatinine 1.3 from 1.4 on admission, BUN 30. Sodium 137, potassium 4.0. Lactic acid 1.3, total bilirubin 0.3, AST 8, ALT 13, albumin 3.0. Procalcitonin less than 0.10. Blood cultures from 06/29/2020 negative to date. IMAGING: Venous and arterial ultrasound showed no evidence of DVT or stenosis. IMPRESSION: 1. Cellulitis and superficial ulceration of left lower leg. 2. Renal insufficiency. 3. Diabetes. 4. Obesity. 5. Callus of the left heel. 6. Hypertension. 7. History of left TKA. PLAN: 1. Discontinue the vancomycin and Zosyn. 2. Start ceftriaxone. 3. Local wound care as directed. 4. Pain management per primary. 5. Offload heels. 6. Follow up on blood cultures so far negative to date. 7. Supportive care. Thank you, Dr. Sutton for asking us to participate in this patient's care. Should you have further questions or concerns, please call. The patient was seen and examined and plan of care implemented by Dr. Jaun Angel. JUAN ANGEL MD DR: GLEN/clark JOB#: [id number] / [id number] MATTHIAS
[2020-07-01 19:00] VITALS: BP 158/72
[2020-07-01] MEDS: LACTOBACILLUS RHAMNOSUS GG 1 CAPSULE. PO SCH (21:15)
[2020-07-01] MEDS: INSULIN GLARGINE SYRINGE. SQ SCH (21:19)
[2020-07-01 23:00] VITALS: BP 147/66
[2020-07-02 02:25] VITALS: BP 132/74
[2020-07-02 07:00] VITALS: BP 142/48
[2020-07-02] MEDS: INSULIN LISPRO 300 UNITS/3 ML VIAL. SQ SCH ×3 (08:00→17:00)
[2020-07-02] MEDS: amLODIPine BESYLATE 10 MG TABLET PO SCH (10:36)
[2020-07-02] MEDS: LACTOBACILLUS RHAMNOSUS GG 1 CAPSULE. PO SCH ×2 (10:36→20:10)
[2020-07-02 10:51] LABS: BASO # 0.1 x10^3/uL (0.0-0.2); BASO % 1 % (0-3); EOS # 0.1 x10^3/uL (0.0-0.7); EOS % 1 % (0-3); HEMATOCRIT 34.2 % (36.0-47.0); HEMOGLOBIN 11.3 g/dL (12.0-15.5); LYMPH # 1.2 x10^3/uL (1.0-4.8); LYMPH % 12 % (24-48); MEAN CORPUSCULAR HEMOGLOBIN 30 pg (25-35); MEAN CORPUSCULAR HGB CONC 33 g/dL (31-37); MEAN CORPUSCULAR VOLUME 89 fL (79-100); MONO # 1.1 x10^3/uL (0.0-1.1); MONO % 11 % (0-9); NEUT # 7.6 x10^3/uL (1.8-7.7); NEUT % 75 % (31-73); PLATELET COUNT 275 x10^3/uL (140-400); RED BLOOD COUNT 3.83 x10^6/uL (3.50-5.40); RED CELL DISTRIBUTION WIDTH 13.8 % (11.5-14.5); WHITE BLOOD COUNT 10.1 x10^3/uL (4.0-11.0)
[2020-07-02 11:00] VITALS: BP 137/50
[2020-07-02 11:02] LABS: ALBUMIN 2.5 g/dL (3.4-5.0); ALBUMIN/GLOBULIN RATIO 0.6 (1.0-1.7); CALCIUM 8.5 mg/dL (8.5-10.1); CREATININE 1.2 mg/dL (0.6-1.0); GFR 42.9; POTASSIUM 4.2 mmol/L (3.5-5.1); TOTAL BILIRUBIN 0.2 mg/dL (0.2-1.0); TOTAL PROTEIN 6.7 g/dL (6.4-8.2)
--- NOTE | 2020-07-02 11:03 | PDOC ---
PROGRESS NOTES Date of Service: DATE: 07/02/20 TIME: 11:01 Chief Complaint Chief Complaint Left leg cellulitis in DM2, DIABETES 2, poor control obese, BMI 37 Prior TKA LEFT KNEE 2017 weakness and debility History of Present Illness History of Present Illness Wound care nurse consult following, needs PT and OT eval, will need SNU, left leg pain, uses walker at baseline, cannotwalk, [facility] [place] [facility], abx changed by ID DVT PROPHYLAXIS doing better, Hgb a1c still pending, Vitals Vitals Vital Signs Date Time Temp Pulse Resp B/P (MAP) Pulse Ox O2 Delivery O2 Flow Rate FiO2 07/02/20 10:36 71 142/48 07/02/20 07:00 98.4 18 91 Room Air 98.4 Physical Exam General: Alert, Oriented X3, Cooperative, No acute distress Heart: Regular rate Lungs: Clear, Other Abdomen: Soft Labs LABS Laboratory Tests Test 07/01/20 11:49 07/01/20 16:33 07/01/20 19:57 07/02/20 07:35 Glucose (Fingerstick) 148 mg/dL (70-99) 248 mg/dL (70-99) 202 mg/dL (70-99) 133 mg/dL (70-99) Test 07/02/20 10:20 White Blood Count 10.1 x10^3/uL (4.0-11.0) Red Blood Count 3.83 x10^6/uL (3.50-5.40) Hemoglobin 11.3 g/dL (12.0-15.5) Hematocrit 34.2 % (36.0-47.0) Mean Corpuscular Volume 89 fL (79-100) Mean Corpuscular Hemoglobin 30 pg (25-35) Mean Corpuscular Hemoglobin Concent 33 g/dL (31-37) Red Cell Distribution Width 13.8 % (11.5-14.5) Platelet Count 275 x10^3/uL (140-400) Neutrophils (%) (Auto) 75 % (31-73) Lymphocytes (%) (Auto) 12 % (24-48) Monocytes (%) (Auto) 11 % (0-9) Eosinophils (%) (Auto) 1 % (0-3) Basophils (%) (Auto) 1 % (0-3) Neutrophils # (Auto) 7.6 x10^3/uL (1.8-7.7) Lymphocytes # (Auto) 1.2 x10^3/uL (1.0-4.8) Monocytes # (Auto) 1.1 x10^3/uL (0.0-1.1) Eosinophils # (Auto) 0.1 x10^3/uL (0.0-0.7) Basophils # (Auto) 0.1 x10^3/uL (0.0-0.2) Review of Systems Review of Systems left leg pain, Assessment and Plan Assessmemt and Plan Problems Medical Problems: (1) Left leg cellulitis Status: Acute Comment Review of Relevant I have reviewed the following items noam (where applicable) has been applied. Labs Laboratory Tests Test 06/30/20 11:59 06/30/20 16:26 06/30/20 20:09 07/01/20 07:52 Glucose (Fingerstick) 159 mg/dL (70-99) 181 mg/dL (70-99) 275 mg/dL (70-99) 158 mg/dL (70-99) Test 07/01/20 08:30 07/01/20 11:49 07/01/20 16:33 07/01/20 19:57 Creatinine 1.3 mg/dL (0.6-1.0) Estimated GFR (Cockcroft-Gault) 39.1 Glucose (Fingerstick) 148 mg/dL (70-99) 248 mg/dL (70-99) 202 mg/dL (70-99) Test 07/02/20 07:35 07/02/20 10:20 Glucose (Fingerstick) 133 mg/dL (70-99) White Blood Count 10.1 x10^3/uL (4.0-11.0) Red Blood Count 3.83 x10^6/uL (3.50-5.40) Hemoglobin 11.3 g/dL (12.0-15.5) Hematocrit 34.2 % (36.0-47.0) Mean Corpuscular Volume 89 fL (79-100) Mean Corpuscular Hemoglobin 30 pg (25-35) Mean Corpuscular Hemoglobin Concent 33 g/dL (31-37) Red Cell Distribution Width 13.8 % (11.5-14.5) Platelet Count 275 x10^3/uL (140-400) Neutrophils (%) (Auto) 75 % (31-73) Lymphocytes (%) (Auto) 12 % (24-48) Monocytes (%) (Auto) 11 % (0-9) Eosinophils (%) (Auto) 1 % (0-3) Basophils (%) (Auto) 1 % (0-3) Neutrophils # (Auto) 7.6 x10^3/uL (1.8-7.7) Lymphocytes # (Auto) 1.2 x10^3/uL (1.0-4.8) Monocytes # (Auto) 1.1 x10^3/uL (0.0-1.1) Eosinophils # (Auto) 0.1 x10^3/uL (0.0-0.7) Basophils # (Auto) 0.1 x10^3/uL (0.0-0.2) Laboratory Tests Test 07/01/20 11:49 07/01/20 16:33 07/01/20 19:57 07/02/20 07:35 Glucose (Fingerstick) 148 mg/dL (70-99) 248 mg/dL (70-99) 202 mg/dL (70-99) 133 mg/dL (70-99) Test 07/02/20 10:20 White Blood Count 10.1 x10^3/uL (4.0-11.0) Red Blood Count 3.83 x10^6/uL (3.50-5.40) Hemoglobin 11.3 g/dL (12.0-15.5) Hematocrit 34.2 % (36.0-47.0) Mean Corpuscular Volume 89 fL (79-100) Mean Corpuscular Hemoglobin 30 pg (25-35) Mean Corpuscular Hemoglobin Concent 33 g/dL (31-37) Red Cell Distribution Width 13.8 % (11.5-14.5) Platelet Count 275 x10^3/uL (140-400) Neutrophils (%) (Auto) 75 % (31-73) Lymphocytes (%) (Auto) 12 % (24-48) Monocytes (%) (Auto) 11 % (0-9) Eosinophils (%) (Auto) 1 % (0-3) Basophils (%) (Auto) 1 % (0-3) Neutrophils # (Auto) 7.6 x10^3/uL (1.8-7.7) Lymphocytes # (Auto) 1.2 x10^3/uL (1.0-4.8) Monocytes # (Auto) 1.1 x10^3/uL (0.0-1.1) Eosinophils # (Auto) 0.1 x10^3/uL (0.0-0.7) Basophils # (Auto) 0.1 x10^3/uL (0.0-0.2) Microbiology 06/29/20 Blood Culture - Preliminary, Resulted NO GROWTH AFTER 2 DAYS Medications Current Medications Sodium Chloride 1,000 ml @ 1,000 mls/hr Q1H IV Last administered on 06/29/20at 22:46; Start 06/29/20 at 21:30; Stop 06/29/20 at 23:11; Status DC Piperacillin Sod/ Tazobactam Sod 4.5 gm/Sodium Chloride 100 ml @ 200 mls/hr 1X ONCE IV Last administered on 06/29/20at 22:04; Start 06/29/20 at 21:30; Stop 06/29/20 at 21:59; Status DC Vancomycin HCl (Vanco Per Pharmacy) 1 each PRN DAILY PRN MC SEE COMMENTS Last administered on 06/30/20at 01:51; Start 06/29/20 at 21:00; Stop 07/01/20 at 13:42; Status DC Morphine Sulfate (Morphine Sulfate) 2 mg PRN Q15MIN PRN IV/SQ PAIN GREATER THAN 3/10 Last administered on 06/30/20at 05:32; Start 06/29/20 at 21:00; Stop 06/30/20 at 20:59; Status DC Vancomycin HCl 2 gm/Sodium Chloride 500 ml @ 250 mls/hr 1X ONCE IV Last administered on 06/29/20at 22:45; Start 06/29/20 at 22:00; Stop 06/29/20 at 23:59; Status DC Vancomycin HCl 1.25 gm/Sodium Chloride 250 ml @ 167 mls/hr Q24H IV Last administered on 06/30/20at 23:41; Start 06/30/20 at 23:00; Stop 07/01/20 at 13:42; Status DC Vancomycin HCl (Vancomycin Trough Level) 1 each 1X ONCE MC ; Start 07/01/20 at 22:30; Stop 07/01/20 at 22:31; Status Cancel Insulin Human Lispro (HumaLOG) 0-5 UNITS TIDWMEALS SQ Last administered on 07/01/20at 18:02; Start 06/30/20 at 12:00 Dextrose (Dextrose 50%-Water Syringe) 12.5 gm PRN Q15MIN PRN IV SEE COMMENTS; Start 06/30/20 at 08:30 Piperacillin Sod/ Tazobactam Sod (Zosyn Per Pharmacy) 1 each PRN DAILY PRN MC SEE COMMENTS; Start 06/30/20 at 10:30; Stop 07/01/20 at 14:42; Status DC Piperacillin Sod/ Tazobactam Sod 3.375 gm/Sodium Chloride 50 ml @ 100 mls/hr Q6HRS IV ; Start 06/30/20 at 11:00; Status Cancel Piperacillin Sod/ Tazobactam Sod 3.375 gm/Sodium Chloride 50 ml @ 100 mls/hr Q6HRS IV Last administered on 07/01/20at 06:09; Start 06/30/20 at 11:00; Stop 07/01/20 at 14:42; Status DC Sodium Chloride (Normal Saline Flush) 3 ml QSHIFT PRN IV AFTER MEDS AND BLOOD DRAWS; Start 06/30/20 at 13:30 Ondansetron HCl (Zofran) 4 mg PRN Q4HRS PRN IV NAUSEA/VOMITING; Start 06/30/20 at 13:30 Acetaminophen (Tylenol) 650 mg PRN Q4HRS PRN PO TEMP OVER 100.4F OR MILD PAIN; Start 06/30/20 at 13:30 Al Hydroxide/Mg Hydroxide (Mylanta Plus Xs) 30 ml PRN DAILY PRN PO HEARTBURN / GAS; Start 06/30/20 at 13:30 Clonidine HCl (Catapres) 0.1 mg PRN Q6HRS PRN PO SBP>160 OR DBP>90; Start 06/30/20 at 13:30 Sodium Monofluorophosphate (Fleet Adult) 133 ml PRN DAILY PRN [place] CONSTIPATION; Start 06/30/20 at 13:30 Docusate Sodium (Colace) 100 mg PRN BID PRN PO HARD STOOLS; Start 06/30/20 at 13:30 Albuterol Sulfate (Ventolin Neb Soln) 2.5 mg PRN Q4HRS PRN NEB SHORTNESS OF BREATH; Start 06/30/20 at 13:30 Guaifenesin (Robitussin) 200 mg PRN Q4HRS PRN PO COUGH; Start 06/30/20 at 13:30 Enoxaparin Sodium (Lovenox 40mg Syringe) 40 mg Q24H SQ Last administered on 06/30/20at 16:35; Start 06/30/20 at 14:00 Amlodipine Besylate (Norvasc) 10 mg DAILY PO Last administered on 07/02/20at 10:36; Start 07/01/20 at 09:00 Acetaminophen/ Hydrocodone Bitart (Lortab 5/325) 1 tab PRN Q6HRS PRN PO MODERATE PAIN; Start 06/30/20 at 13:30 Insulin Glargine (Lantus Syringe) 20 unit QHS SQ Last administered on 07/01/20at 21:19; Start 06/30/20 at 21:00 Ceftriaxone Sodium (Rocephin) 2 gm Q24H IVP Last administered on 07/01/20at 15:55; Start 07/01/20 at 16:00 Lactobacillus Rhamnosus (Culturelle) 1 cap BID PO Last administered on 07/02/20at 10:36; Start 07/01/20 at 21:00 Active Scripts Active Ibuprofen 200 Mg Tablet 600 Mg PO TIDAFTMEAL 14 Days Romance 5-325 Tablet (Acetaminophen/Hydrocodone Bitart) 1 Each Tablet 1 Tab PO PRN Q6HRS PRN Reported Aspirin 325 Mg Tablet 1 Tab PO DAILY Amlodipine Besylate 5 Mg Tablet 5 Mg PO BID Humalog (Insulin Lispro) 100 Unit/1 Ml Vial 0 SQ SSI Lantus Solostar (Insulin Glargine,Hum.rec.anlog) 100 Unit/1 Ml Insuln.pen 12 Unit SQ QHS Metformin Hcl 500 Mg Tablet 500 Mg PO BIDWMEALS Vitals/I & O Vital Sign - Last 24 Hours 07/01/20 07/01/20 07/01/20 07/01/20 15:00 19:00 20:00 23:00 Temp 98.3 99.0 98.9 98.3 99.0 98.9 Pulse 69 73 68 Resp 18 18 18 B/P (MAP) 156/51 (86) 158/72 (100) 147/66 (93) Pulse Ox 98 96 96 O2 Delivery Room Air Room Air Room Air Room Air 07/02/20 07/02/20 07/02/20 02:25 07:00 10:36 Temp 98.7 98.4 98.7 98.4 Pulse 70 71 71 Resp 18 18 B/P (MAP) 132/74 (93) 142/48 (79) 142/48 Pulse Ox 95 91 O2 Delivery Room Air Room Air Intake and Output 07/01/20 07/01/20 07/02/20 15:00 23:00 07:00 Intake Total 200 ml 300 ml Output Total 1000 ml Balance 200 ml -700 ml Justicifation of Admission Dx: Justifications for Admission: Justification of Admission Dx: Yes Sepsis: Bacteremia PAM ROGERS MD Jul 02, 2020 11:02
--- NOTE | 2020-07-02 11:15 | PDOC ---
Infectious Disease Note Subjective Subjective Left leg ching some Swelling going down ROS ROS Denies F/C/N/V/D/SOA Vital Sign Vital Signs Vital Signs Date Time Temp Pulse Resp B/P (MAP) Pulse Ox O2 Delivery O2 Flow Rate FiO2 07/02/20 10:36 71 142/48 07/02/20 07:00 98.4 18 91 Room Air 98.4 Physical Exam PHYSICAL EXAM GENERAL: Propped up in bed, alert, smiling HEENT: Pupils equally round. Oropharynx pink and moist. No lesions seen. NECK: Supple. LUNGS: Clear to auscultation. HEART: S1, S2. ABDOMEN: Obese, soft, nontender with bowel sounds present. EXTREMITIES: Unremarkable except left lower extremity mildly swollen, + wrinkles. She has a fairly superficial irregular shaped ulceration anterior castanon with surrounding erythema. She has a callus of the left heel. Left knee without warmth, redness or swelling, scar is well healed. SKIN: Warm to touch. No signs of rash. NEUROLOGIC: Alert, answering questions appropriately. Labs Lab Laboratory Tests Test 07/01/20 11:49 07/01/20 16:33 07/01/20 19:57 07/02/20 07:35 Glucose (Fingerstick) 148 mg/dL (70-99) 248 mg/dL (70-99) 202 mg/dL (70-99) 133 mg/dL (70-99) Test 07/02/20 10:20 White Blood Count 10.1 x10^3/uL (4.0-11.0) Red Blood Count 3.83 x10^6/uL (3.50-5.40) Hemoglobin 11.3 g/dL (12.0-15.5) Hematocrit 34.2 % (36.0-47.0) Mean Corpuscular Volume 89 fL (79-100) Mean Corpuscular Hemoglobin 30 pg (25-35) Mean Corpuscular Hemoglobin Concent 33 g/dL (31-37) Red Cell Distribution Width 13.8 % (11.5-14.5) Platelet Count 275 x10^3/uL (140-400) Neutrophils (%) (Auto) 75 % (31-73) Lymphocytes (%) (Auto) 12 % (24-48) Monocytes (%) (Auto) 11 % (0-9) Eosinophils (%) (Auto) 1 % (0-3) Basophils (%) (Auto) 1 % (0-3) Neutrophils # (Auto) 7.6 x10^3/uL (1.8-7.7) Lymphocytes # (Auto) 1.2 x10^3/uL (1.0-4.8) Monocytes # (Auto) 1.1 x10^3/uL (0.0-1.1) Eosinophils # (Auto) 0.1 x10^3/uL (0.0-0.7) Basophils # (Auto) 0.1 x10^3/uL (0.0-0.2) Sodium Level 136 mmol/L (136-145) Potassium Level 4.2 mmol/L (3.5-5.1) Chloride Level 103 mmol/L (98-107) Carbon Dioxide Level 25 mmol/L (21-32) Anion Gap 8 (6-14) Blood Urea Nitrogen 25 mg/dL (7-20) Creatinine 1.2 mg/dL (0.6-1.0) Estimated GFR (Cockcroft-Gault) 42.9 BUN/Creatinine Ratio 21 (6-20) Glucose Level 287 mg/dL (70-99) Calcium Level 8.5 mg/dL (8.5-10.1) Total Bilirubin 0.2 mg/dL (0.2-1.0) Aspartate Amino Transf (AST/SGOT) 10 U/L (15-37) Alanine Aminotransferase (ALT/SGPT) 10 U/L (14-59) Alkaline Phosphatase 86 U/L (46-116) Total Protein 6.7 g/dL (6.4-8.2) Albumin 2.5 g/dL (3.4-5.0) Albumin/Globulin Ratio 0.6 (1.0-1.7) Micro Microbiology 06/29/20 Blood Culture - Preliminary, Resulted NO GROWTH AFTER 2 DAY Objective Assessment Cellulitis and superficial ulceration of left lower leg. -US no evidence DVT or stenosis Renal insufficiency Diabetes Obesity Callous left heel Hypertension h/o Left TKA Plan Plan of Care Ceftriaxone Probiotics Local wound care as directed Pain management per primary Off load heels Follow-up BC, neg to date Supportive care Attending Co-Sign The patient was seen and examined at the bedside. The chart was reviewed. The case was discussed. Agree with the plan of care. PRISCA WASHINGTON APRN Jul 02, 2020 11:15 APOORVA ANGEL MD Jul 02, 2020 15:03
[2020-07-02] MEDS: HYDROcodone/APAP 5/325MG 1 TAB TABLET PO PRN ×2 (12:57→20:10)
[2020-07-02] MEDS: ENOXAPARIN 40 MG/0.4 ML SYRINGE. SQ SCH (14:00)
[2020-07-02 15:00] VITALS: BP 132/52
[2020-07-02] MEDS: cefTRIAXone IV Push 2 GM VIAL. IVP SCH (18:59)
[2020-07-02 19:00] VITALS: BP 142/60
[2020-07-02] MEDS: INSULIN GLARGINE SYRINGE. SQ SCH (20:50)
[2020-07-02 23:00] VITALS: BP 127/60
[2020-07-03] VITALS (7 sets, daily range): BP systolic 98–142; BP diastolic 48–76
[2020-07-03] MEDS: INSULIN LISPRO 300 UNITS/3 ML VIAL. SQ SCH ×3 (08:00→17:12)
[2020-07-03 09:11] LABS: HEMOGLOBIN A1C 9.7 % (4.8-5.6)
[2020-07-03] MEDS: LACTOBACILLUS RHAMNOSUS GG 1 CAPSULE. PO SCH ×2 (09:49→21:25)
[2020-07-03] MEDS: amLODIPine BESYLATE 10 MG TABLET PO SCH (09:49)
[2020-07-03] MEDS: HYDROcodone/APAP 5/325MG 1 TAB TABLET PO PRN ×2 (09:50→19:12)
--- NOTE | 2020-07-03 10:01 | NUR ---
SW following. Discussed with RN, pt from home with family, ada diet, room air. PT/OT recommending different dispositions - home with assistance, intermediate and home health. SW awaiting confirmation from therapy for discharge planning. SW will continue to follow.
[2020-07-03] MEDS: ENOXAPARIN 40 MG/0.4 ML SYRINGE. SQ SCH (13:05)
--- NOTE | 2020-07-03 13:24 | PDOC ---
Infectious Disease Note Subjective Subjective Left leg better. No F/C/S/N/v/D/SOA Swelling going down ROS ROS o/w neg Vital Sign Vital Signs Vital Signs Date Time Temp Pulse Resp B/P (MAP) Pulse Ox O2 Delivery O2 Flow Rate FiO2 07/03/20 10:50 Room Air 07/03/20 09:49 70 123/48 07/03/20 07:00 98.5 18 97 98.5 Physical Exam PHYSICAL EXAM GENERAL: Propped up in a chair, alert, smiling HEENT: Pupils equally round. Oropharynx pink and moist. No lesions seen. NECK: Supple. LUNGS: Clear to auscultation. HEART: S1, S2. ABDOMEN: Obese, soft, nontender with bowel sounds present. EXTREMITIES: Unremarkable except left lower extremity mildly swollen, + wrinkles. She has a fairly superficial irregular shaped ulceration anterior castanon with surrounding mild erythema. She has a callus of the left heel. Left knee without warmth, redness or swelling, scar is well healed. SKIN: Warm to touch. No signs of rash. NEUROLOGIC: Alert, answering questions appropriately. Labs Lab Laboratory Tests Test 07/02/20 16:39 07/02/20 20:12 07/03/20 07:53 07/03/20 11:41 Glucose (Fingerstick) 140 mg/dL (70-99) 171 mg/dL (70-99) 129 mg/dL (70-99) 233 mg/dL (70-99) Micro Microbiology 06/29/20 Blood Culture - Preliminary, Resulted NO GROWTH AFTER 3 DAYS Objective Assessment Cellulitis and superficial ulceration of left lower leg. -US no evidence DVT or stenosis Renal insufficiency Diabetes Obesity Callous left heel Hypertension h/o Left TKA Plan Plan of Care D/c Ceftriaxone change to Cefdinir Probiotics Local wound care as directed Pain management per primary Off load heels Follow-up BC, neg to date Supportive care CAMI SCHULTZ MD Jul 03, 2020 13:24
--- NOTE | 2020-07-03 18:32 | PDOC ---
PROGRESS NOTES Date of Service: DATE: 07/03/20 TIME: 18:24 Chief Complaint Chief Complaint Left leg cellulitis in DM2, DIABETES 2, poor control obese, BMI 37 Prior TKA LEFT KNEE 2017 weakness and debility History of Present Illness History of Present Illness Patient reports improvement in her leg. Now complains of hip pain. She will be going to SNU on discharge. She denies fever, nausea, or vomiting. Vitals Vitals Vital Signs Date Time Temp Pulse Resp B/P (MAP) Pulse Ox O2 Delivery O2 Flow Rate FiO2 07/03/20 15:00 98.4 74 18 140/56 (84) 98 Room Air 98.4 Physical Exam Physical Exam GENERAL: Propped up in a chair, alert, smiling HEENT: Pupils equally round. Oropharynx pink and moist. No lesions seen. NECK: Supple. LUNGS: Clear to auscultation. HEART: S1, S2. ABDOMEN: Obese, soft, nontender with bowel sounds present. EXTREMITIES: Unremarkable except left lower extremity mildly swollen, + wrinkles. She has a fairly superficial irregular shaped ulceration anterior castanon with surrounding mild erythema. She has a callus of the left heel. Left knee without warmth, redness or swelling, scar is well healed. SKIN: Warm to touch. No signs of rash. NEUROLOGIC: Alert, answering questions appropriately. General: Alert, Oriented X3, Cooperative, No acute distress Heart: Regular rate Lungs: Clear, Other Abdomen: Soft Extremities: Other (LLE banged with dressings clean, dry, intact.) Skin: No rashes, No breakdown Labs LABS Laboratory Tests Test 07/02/20 20:12 07/03/20 07:53 07/03/20 11:41 07/03/20 16:42 Glucose (Fingerstick) 171 mg/dL (70-99) 129 mg/dL (70-99) 233 mg/dL (70-99) 294 mg/dL (70-99) Review of Systems Review of Systems Lower back pain. Denies fever, denies nausea. Assessment and Plan Assessmemt and Plan Problems Medical Problems: (1) Left leg cellulitis Status: Acute Plan: Discharge to SNU on PO antibiotics tomorrow. Comment Review of Relevant I have reviewed the following items noam (where applicable) has been applied. Labs Laboratory Tests Test 07/01/20 19:57 07/02/20 07:35 07/02/20 10:20 07/02/20 11:29 Glucose (Fingerstick) 202 mg/dL (70-99) 133 mg/dL (70-99) 238 mg/dL (70-99) White Blood Count 10.1 x10^3/uL (4.0-11.0) Red Blood Count 3.83 x10^6/uL (3.50-5.40) Hemoglobin 11.3 g/dL (12.0-15.5) Hematocrit 34.2 % (36.0-47.0) Mean Corpuscular Volume 89 fL (79-100) Mean Corpuscular Hemoglobin 30 pg (25-35) Mean Corpuscular Hemoglobin Concent 33 g/dL (31-37) Red Cell Distribution Width 13.8 % (11.5-14.5) Platelet Count 275 x10^3/uL (140-400) Neutrophils (%) (Auto) 75 % (31-73) Lymphocytes (%) (Auto) 12 % (24-48) Monocytes (%) (Auto) 11 % (0-9) Eosinophils (%) (Auto) 1 % (0-3) Basophils (%) (Auto) 1 % (0-3) Neutrophils # (Auto) 7.6 x10^3/uL (1.8-7.7) Lymphocytes # (Auto) 1.2 x10^3/uL (1.0-4.8) Monocytes # (Auto) 1.1 x10^3/uL (0.0-1.1) Eosinophils # (Auto) 0.1 x10^3/uL (0.0-0.7) Basophils # (Auto) 0.1 x10^3/uL (0.0-0.2) Sodium Level 136 mmol/L (136-145) Potassium Level 4.2 mmol/L (3.5-5.1) Chloride Level 103 mmol/L (98-107) Carbon Dioxide Level 25 mmol/L (21-32) Anion Gap 8 (6-14) Blood Urea Nitrogen 25 mg/dL (7-20) Creatinine 1.2 mg/dL (0.6-1.0) Estimated GFR (Cockcroft-Gault) 42.9 BUN/Creatinine Ratio 21 (6-20) Glucose Level 287 mg/dL (70-99) Hemoglobin A1c 9.7 % (4.8-5.6) Calcium Level 8.5 mg/dL (8.5-10.1) Total Bilirubin 0.2 mg/dL (0.2-1.0) Aspartate Amino Transf (AST/SGOT) 10 U/L (15-37) Alanine Aminotransferase (ALT/SGPT) 10 U/L (14-59) Alkaline Phosphatase 86 U/L (46-116) Total Protein 6.7 g/dL (6.4-8.2) Albumin 2.5 g/dL (3.4-5.0) Albumin/Globulin Ratio 0.6 (1.0-1.7) Test 07/02/20 16:39 07/02/20 20:12 07/03/20 07:53 07/03/20 11:41 Glucose (Fingerstick) 140 mg/dL (70-99) 171 mg/dL (70-99) 129 mg/dL (70-99) 233 mg/dL (70-99) Test 07/03/20 16:42 Glucose (Fingerstick) 294 mg/dL (70-99) Laboratory Tests Test 07/02/20 20:12 07/03/20 07:53 07/03/20 11:41 07/03/20 16:42 Glucose (Fingerstick) 171 mg/dL (70-99) 129 mg/dL (70-99) 233 mg/dL (70-99) 294 mg/dL (70-99) Microbiology 06/29/20 Blood Culture - Preliminary, Resulted NO GROWTH AFTER 3 DAYS Medications Current Medications Sodium Chloride 1,000 ml @ 1,000 mls/hr Q1H IV Last administered on 06/29/20at 22:46; Start 06/29/20 at 21:30; Stop 06/29/20 at 23:11; Status DC Piperacillin Sod/ Tazobactam Sod 4.5 gm/Sodium Chloride 100 ml @ 200 mls/hr 1X ONCE IV Last administered on 06/29/20at 22:04; Start 06/29/20 at 21:30; Stop 06/29/20 at 21:59; Status DC Vancomycin HCl (Vanco Per Pharmacy) 1 each PRN DAILY PRN MC SEE COMMENTS Last administered on 06/30/20at 01:51; Start 06/29/20 at 21:00; Stop 07/01/20 at 1 3:42; Status DC Morphine Sulfate (Morphine Sulfate) 2 mg PRN Q15MIN PRN IV/SQ PAIN GREATER THAN 3/10 Last administered on 06/30/20at 05:32; Start 06/29/20 at 21:00; Stop 06/30/20 at 20:59; Status DC Vancomycin HCl 2 gm/Sodium Chloride 500 ml @ 250 mls/hr 1X ONCE IV Last administered on 06/29/20at 22:45; Start 06/29/20 at 22:00; Stop 06/29/20 at 23:59; Status DC Vancomycin HCl 1.25 gm/Sodium Chloride 250 ml @ 167 mls/hr Q24H IV Last administered on 06/30/20at 23:41; Start 06/30/20 at 23:00; Stop 07/01/20 at 13:42; Status DC Vancomycin HCl (Vancomycin Trough Level) 1 each 1X ONCE MC ; Start 07/01/20 at 22:30; Stop 07/01/20 at 22:31; Status Cancel Insulin Human Lispro (HumaLOG) 0-5 UNITS TIDWMEALS SQ Last administered on 07/03/20at 17:12; Start 06/30/20 at 12:00 Dextrose (Dextrose 50%-Water Syringe) 12.5 gm PRN Q15MIN PRN IV SEE COMMENTS; Start 06/30/20 at 08:30 Piperacillin Sod/ Tazobactam Sod (Zosyn Per Pharmacy) 1 each PRN DAILY PRN MC SEE COMMENTS; Start 06/30/20 at 10:30; Stop 07/01/20 at 14:42; Status DC Piperacillin Sod/ Tazobactam Sod 3.375 gm/Sodium Chloride 50 ml @ 100 mls/hr Q6HRS IV ; Start 06/30/20 at 11:00; Status Cancel Piperacillin Sod/ Tazobactam Sod 3.375 gm/Sodium Chloride 50 ml @ 100 mls/hr Q6HRS IV Last administered on 07/01/20at 06:09; Start 06/30/20 at 11:00; Stop 07/01/20 at 14:42; Status DC Sodium Chloride (Normal Saline Flush) 3 ml QSHIFT PRN IV AFTER MEDS AND BLOOD DRAWS; Start 06/30/20 at 13:30 Ondansetron HCl (Zofran) 4 mg PRN Q4HRS PRN IV NAUSEA/VOMITING; Start 06/30/20 at 13:30 Acetaminophen (Tylenol) 650 mg PRN Q4HRS PRN PO TEMP OVER 100.4F OR MILD PAIN; Start 06/30/20 at 13:30 Al Hydroxide/Mg Hydroxide (Mylanta Plus Xs) 30 ml PRN DAILY PRN PO HEARTBURN / GAS; Start 06/30/20 at 13:30 Clonidine HCl (Catapres) 0.1 mg PRN Q6HRS PRN PO SBP>160 OR DBP>90; Start 06/30/20 at 13:30 Sodium Monofluorophosphate (Fleet Adult) 133 ml PRN DAILY PRN [place] CONSTIPATION; Start 06/30/20 at 13:30 Docusate Sodium (Colace) 100 mg PRN BID PRN PO HARD STOOLS; Start 06/30/20 at 13:30 Albuterol Sulfate (Ventolin Neb Soln) 2.5 mg PRN Q4HRS PRN NEB SHORTNESS OF BREATH; Start 06/30/20 at 13:30 Guaifenesin (Robitussin) 200 mg PRN Q4HRS PRN PO COUGH; Start 06/30/20 at 13:30 Enoxaparin Sodium (Lovenox 40mg Syringe) 40 mg Q24H SQ Last administered on 07/03/20at 13:05; Start 06/30/20 at 14:00 Amlodipine Besylate (Norvasc) 10 mg DAILY PO Last administered on 07/03/20at 09: 49; Start 07/01/20 at 09:00 Acetaminophen/ Hydrocodone Bitart (Lortab 5/325) 1 tab PRN Q6HRS PRN PO MODERATE PAIN Last administered on 07/03/20at 09:50; Start 06/30/20 at 13:30 Insulin Glargine (Lantus Syringe) 20 unit QHS SQ Last administered on 07/02/20at 20:50; Start 06/30/20 at 21:00 Ceftriaxone Sodium (Rocephin) 2 gm Q24H IVP Last administered on 07/02/20at 18:59; Start 07/01/20 at 16:00; Stop 07/03/20 at 13:56; Status DC Lactobacillus Rhamnosus (Culturelle) 1 cap BID PO Last administered on 07/03/20a t 09:49; Start 07/01/20 at 21:00 Cefdinir (Omnicef) 300 mg BID PO ; Start 07/03/20 at 21:00 Active Scripts Active Ibuprofen 200 Mg Tablet 600 Mg PO TIDAFTMEAL 14 Days [place] 5-325 Tablet (Acetaminophen/Hydrocodone Bitart) 1 Each Tablet 1 Tab PO PRN Q6HRS PRN Reported Aspirin 325 Mg Tablet 1 Tab PO DAILY Amlodipine Besylate 5 Mg Tablet 5 Mg PO BID Humalog (Insulin Lispro) 100 Unit/1 Ml Vial 0 SQ SSI Lantus Solostar (Insulin Glargine,Hum.rec.anlog) 100 Unit/1 Ml Insuln.pen 12 Unit SQ QHS Metformin Hcl 500 Mg Tablet 500 Mg PO BIDWMEALS Vitals/I & O Vital Sign - Last 24 Hours 07/02/20 07/02/20 07/02/20 07/02/20 19:00 20:00 20:10 21:10 Temp 98.0 98.0 Pulse 70 Resp 20 20 20 B/P (MAP) 142/60 (87) Pulse Ox 98 97 98 O2 Delivery Room Air Room Air Room Air Room Air 07/02/20 07/03/20 07/03/20 07/03/20 23:00 03:00 04:10 07:00 Temp 98.2 98.8 98.2 98.5 98.2 98.8 98.2 98.5 Pulse 66 70 63 70 Resp 20 20 18 18 B/P (MAP) 127/60 (82) 136/64 (88) 98/76 (83) 123/48 (73) Pulse Ox 98 98 97 97 O2 Delivery Room Air Room Air Room Air Room Air 07/03/20 07/03/20 07/03/20 07/03/20 08:00 09:49 09:50 10:50 Pulse 70 B/P (MAP) 123/48 O2 Delivery Room Air Room Air Room Air 07/03/20 07/03/20 11:00 15:00 Temp 98.5 98.4 98.5 98.4 Pulse 72 74 Resp 18 18 B/P (MAP) 132/52 (78) 140/56 (84) Pulse Ox 98 98 O2 Delivery Room Air Room Air Intake and Output 07/02/20 07/02/20 07/03/20 15:00 23:00 07:00 Intake Total 400 ml Output Total 600 ml Balance -600 ml 400 ml Justicifation of Admission Dx: Justifications for Admission: Justification of Admission Dx: Yes Sepsis: Bacteremia SHAMAR DUVALL MD Jul 03, 2020 18:31
[2020-07-03] MEDS: CEFDINIR 300 MG CAPSULE PO SCH (21:25)
[2020-07-03] MEDS: INSULIN GLARGINE SYRINGE. SQ SCH (21:27)
[2020-07-04 03:00] VITALS: BP 129/57
[2020-07-04 04:54] LABS: BASO # 0.1 x10^3/uL (0.0-0.2); BASO % 1 % (0-3); EOS # 0.3 x10^3/uL (0.0-0.7); EOS % 3 % (0-3); HEMATOCRIT 33.2 % (36.0-47.0); HEMOGLOBIN 10.9 g/dL (12.0-15.5); LYMPH % 19 % (24-48); MEAN CORPUSCULAR HEMOGLOBIN 29 pg (25-35); MEAN CORPUSCULAR HGB CONC 33 g/dL (31-37); MEAN CORPUSCULAR VOLUME 89 fL (79-100); MONO # 1.2 x10^3/uL (0.0-1.1); MONO % 11 % (0-9); NEUT # 7.2 x10^3/uL (1.8-7.7); NEUT % 67 % (31-73); PLATELET COUNT 278 x10^3/uL (140-400); RED BLOOD COUNT 3.73 x10^6/uL (3.50-5.40); RED CELL DISTRIBUTION WIDTH 13.5 % (11.5-14.5); WHITE BLOOD COUNT 10.8 x10^3/uL (4.0-11.0)
[2020-07-04 05:10] LABS: CALCIUM 8.7 mg/dL (8.5-10.1); CREATININE 1.2 mg/dL (0.6-1.0); GFR 42.9; POTASSIUM 3.9 mmol/L (3.5-5.1)
[2020-07-04 07:00] VITALS: BP 159/62
[2020-07-04] MEDS: INSULIN LISPRO 300 UNITS/3 ML VIAL. SQ SCH ×3 (08:00→17:59)
[2020-07-04] MEDS ORDERED: tiZANidine 4 MG TABLET. PO PRN (08:30)
[2020-07-04] MEDS: LACTOBACILLUS RHAMNOSUS GG 1 CAPSULE. PO SCH ×2 (08:36→20:14)
[2020-07-04] MEDS: CEFDINIR 300 MG CAPSULE PO SCH ×2 (08:36→20:14)
[2020-07-04] MEDS: amLODIPine BESYLATE 10 MG TABLET PO SCH (08:36)
--- NOTE | 2020-07-04 10:39 | PDOC ---
Infectious Disease Note Subjective Subjective Left leg better. No F/C/S/N/v/D/SOA Swelling going down Vital Sign Vital Signs Vital Signs Date Time Temp Pulse Resp B/P (MAP) Pulse Ox O2 Delivery O2 Flow Rate FiO2 07/04/20 08:36 99 129/57 07/04/20 07:00 98.2 18 98 Room Air 98.2 Physical Exam PHYSICAL EXAM GENERAL: Propped up in a chair, alert, smiling HEENT: Pupils equally round. Oropharynx pink and moist. No lesions seen. NECK: Supple. LUNGS: Clear to auscultation. HEART: S1, S2. ABDOMEN: Obese, soft, nontender with bowel sounds present. EXTREMITIES: Unremarkable except left lower extremity mildly swollen, + wrinkles - better. She has a fairly superficial irregular shaped ulceration anterior castanon with surrounding mild erythema. Better today. She has a callus of the left heel. Left knee without warmth, redness or swelling, scar is well healed. SKIN: Warm to touch. No signs of rash. NEUROLOGIC: Alert, answering questions appropriately. Labs Lab Laboratory Tests Test 07/03/20 11:41 07/03/20 16:42 07/03/20 17:45 07/03/20 20:59 Glucose (Fingerstick) 233 mg/dL (70-99) 294 mg/dL (70-99) 220 mg/dL (70-99) SARS-CoV-2 Antigen (Rapid) Negative (NEGATIVE) Test 07/04/20 04:00 07/04/20 07:44 White Blood Count 10.8 x10^3/uL (4.0-11.0) Red Blood Count 3.73 x10^6/uL (3.50-5.40) Hemoglobin 10.9 g/dL (12.0-15.5) Hematocrit 33.2 % (36.0-47.0) Mean Corpuscular Volume 89 fL (79-100) Mean Corpuscular Hemoglobin 29 pg (25-35) Mean Corpuscular Hemoglobin Concent 33 g/dL (31-37) Red Cell Distribution Width 13.5 % (11.5-14.5) Platelet Count 278 x10^3/uL (140-400) Neutrophils (%) (Auto) 67 % (31-73) Lymphocytes (%) (Auto) 19 % (24-48) Monocytes (%) (Auto) 11 % (0-9) Eosinophils (%) (Auto) 3 % (0-3) Basophils (%) (Auto) 1 % (0-3) Neutrophils # (Auto) 7.2 x10^3/uL (1.8-7.7) Lymphocytes # (Auto) 2.0 x10^3/uL (1.0-4.8) Monocytes # (Auto) 1.2 x10^3/uL (0.0-1.1) Eosinophils # (Auto) 0.3 x10^3/uL (0.0-0.7) Basophils # (Auto) 0.1 x10^3/uL (0.0-0.2) Sodium Level 136 mmol/L (136-145) Potassium Level 3.9 mmol/L (3.5-5.1) Chloride Level 101 mmol/L (98-107) Carbon Dioxide Level 24 mmol/L (21-32) Anion Gap 11 (6-14) Blood Urea Nitrogen 35 mg/dL (7-20) Creatinine 1.2 mg/dL (0.6-1.0) Estimated GFR (Cockcroft-Gault) 42.9 Glucose Level 149 mg/dL (70-99) Calcium Level 8.7 mg/dL (8.5-10.1) Glucose (Fingerstick) 115 mg/dL (70-99) Micro Microbiology 06/29/20 Blood Culture - Preliminary, Resulted NO GROWTH AFTER 3 DAYS Objective Assessment Cellulitis and superficial ulceration of left lower leg. -US no evidence DVT or stenosis Renal insufficiency Diabetes Obesity Callous left heel Hypertension h/o Left TKA Plan Plan of Care Cont Cefdinir through 07/08 Probiotics Local wound care as directed Pain management per primary Off load heels Follow-up BC, neg to date Supportive care D/w family ID to sign off CAMI SCHULTZ MD Jul 04, 2020 10:39
[2020-07-04 11:00] VITALS: BP 120/49
--- NOTE | 2020-07-04 11:30 | PDOC ---
PROGRESS NOTES Date of Service: DATE: 07/04/20 TIME: 11:26 Chief Complaint Chief Complaint Left leg cellulitis in DM2, DIABETES 2, poor control obese, BMI 37 Prior TKA LEFT KNEE 2017 weakness and debility History of Present Illness History of Present Illness Patient reports improvement in her pain. Denies fever or nausea. Feels ready to discharge to SNU. Vitals Vitals Vital Signs Date Time Temp Pulse Resp B/P (MAP) Pulse Ox O2 Delivery O2 Flow Rate FiO2 07/04/20 08:36 99 129/57 07/04/20 07:00 98.2 18 98 Room Air 98.2 Physical Exam Physical Exam GENERAL: Propped up in a chair, alert HEENT: Pupils equally round. Oropharynx pink and moist. No lesions seen. NECK: Supple. LUNGS: Clear to auscultation. HEART: S1, S2. ABDOMEN: Obese, soft, nontender with bowel sounds present. EXTREMITIES: Unremarkable except left lower extremity mildly swollen, + wrinkles - better. She has a fairly superficial irregular shaped ulceration anterior castanon with surrounding mild erythema. She has a callus of the left heel. Left knee without warmth, redness or swelling, scar is well healed. SKIN: Warm to touch. No signs of rash. NEUROLOGIC: Alert, answering questions appropriately. General: Alert, Oriented X3, Cooperative, No acute distress Heart: Regular rate Lungs: Clear, Other Abdomen: Soft Extremities: Other (LLE banged with dressings clean, dry, intact.) Skin: No rashes, No breakdown Labs LABS Laboratory Tests Test 07/03/20 11:41 07/03/20 16:42 07/03/20 17:45 07/03/20 20:59 Glucose (Fingerstick) 233 mg/dL (70-99) 294 mg/dL (70-99) 220 mg/dL (70-99) SARS-CoV-2 Antigen (Rapid) Negative (NEGATIVE) Test 07/04/20 04:00 07/04/20 07:44 White Blood Count 10.8 x10^3/uL (4.0-11.0) Red Blood Count 3.73 x10^6/uL (3.50-5.40) Hemoglobin 10.9 g/dL (12.0-15.5) Hematocrit 33.2 % (36.0-47.0) Mean Corpuscular Volume 89 fL (79-100) Mean Corpuscular Hemoglobin 29 pg (25-35) Mean Corpuscular Hemoglobin Concent 33 g/dL (31-37) Red Cell Distribution Width 13.5 % (11.5-14.5) Platelet Count 278 x10^3/uL (140-400) Neutrophils (%) (Auto) 67 % (31-73) Lymphocytes (%) (Auto) 19 % (24-48) Monocytes (%) (Auto) 11 % (0-9) Eosinophils (%) (Auto) 3 % (0-3) Basophils (%) (Auto) 1 % (0-3) Neutrophils # (Auto) 7.2 x10^3/uL (1.8-7.7) Lymphocytes # (Auto) 2.0 x10^3/uL (1.0-4.8) Monocytes # (Auto) 1.2 x10^3/uL (0.0-1.1) Eosinophils # (Auto) 0.3 x10^3/uL (0.0-0.7) Basophils # (Auto) 0.1 x10^3/uL (0.0-0.2) Sodium Level 136 mmol/L (136-145) Potassium Level 3.9 mmol/L (3.5-5.1) Chloride Level 101 mmol/L (98-107) Carbon Dioxide Level 24 mmol/L (21-32) Anion Gap 11 (6-14) Blood Urea Nitrogen 35 mg/dL (7-20) Creatinine 1.2 mg/dL (0.6-1.0) Estimated GFR (Cockcroft-Gault) 42.9 Glucose Level 149 mg/dL (70-99) Calcium Level 8.7 mg/dL (8.5-10.1) Glucose (Fingerstick) 115 mg/dL (70-99) Review of Systems Review of Systems Mild pain to left leg. No fever. No nausea, no vomiting. All other systems negative. Assessment and Plan Assessmemt and Plan Problems Medical Problems: (1) Left leg cellulitis Status: Acute Plan: Pain improved. Discharge to SNU. Comment Review of Relevant I have reviewed the following items noam (where applicable) has been applied. Labs Laboratory Tests Test 07/02/20 11:29 07/02/20 16:39 07/02/20 20:12 07/03/20 07:53 Glucose (Fingerstick) 238 mg/dL (70-99) 140 mg/dL (70-99) 171 mg/dL (70-99) 129 mg/dL (70-99) Test 07/03/20 11:41 07/03/20 16:42 07/03/20 17:45 07/03/20 20:59 Glucose (Fingerstick) 233 mg/dL (70-99) 294 mg/dL (70-99) 220 mg/dL (70-99) SARS-CoV-2 Antigen (Rapid) Negative (NEGATIVE) Test 07/04/20 04:00 07/04/20 07:44 White Blood Count 10.8 x10^3/uL (4.0-11.0) Red Blood Count 3.73 x10^6/uL (3.50-5.40) Hemoglobin 10.9 g/dL (12.0-15.5) Hematocrit 33.2 % (36.0-47.0) Mean Corpuscular Volume 89 fL (79-100) Mean Corpuscular Hemoglobin 29 pg (25-35) Mean Corpuscular Hemoglobin Concent 33 g/dL (31-37) Red Cell Distribution Width 13.5 % (11.5-14.5) Platelet Count 278 x10^3/uL (140-400) Neutrophils (%) (Auto) 67 % (31-73) Lymphocytes (%) (Auto) 19 % (24-48) Monocytes (%) (Auto) 11 % (0-9) Eosinophils (%) (Auto) 3 % (0-3) Basophils (%) (Auto) 1 % (0-3) Neutrophils # (Auto) 7.2 x10^3/uL (1.8-7.7) Lymphocytes # (Auto) 2.0 x10^3/uL (1.0-4.8) Monocytes # (Auto) 1.2 x10^3/uL (0.0-1.1) Eosinophils # (Auto) 0.3 x10^3/uL (0.0-0.7) Basophils # (Auto) 0.1 x10^3/uL (0.0-0.2) Sodium Level 136 mmol/L (136-145) Potassium Level 3.9 mmol/L (3.5-5.1) Chloride Level 101 mmol/L (98-107) Carbon Dioxide Level 24 mmol/L (21-32) Anion Gap 11 (6-14) Blood Urea Nitrogen 35 mg/dL (7-20) Creatinine 1.2 mg/dL (0.6-1.0) Estimated GFR (Cockcroft-Gault) 42.9 Glucose Level 149 mg/dL (70-99) Calcium Level 8.7 mg/dL (8.5-10.1) Glucose (Fingerstick) 115 mg/dL (70-99) Laboratory Tests Test 07/03/20 11:41 07/03/20 16:42 07/03/20 17:45 07/03/20 20:59 Glucose (Fingerstick) 233 mg/dL (70-99) 294 mg/dL (70-99) 220 mg/dL (70-99) SARS-CoV-2 Antigen (Rapid) Negative (NEGATIVE) Test 07/04/20 04:00 07/04/20 07:44 White Blood Count 10.8 x10^3/uL (4.0-11.0) Red Blood Count 3.73 x10^6/uL (3.50-5.40) Hemoglobin 10.9 g/dL (12.0-15.5) Hematocrit 33.2 % (36.0-47.0) Mean Corpuscular Volume 89 fL (79-100) Mean Corpuscular Hemoglobin 29 pg (25-35) Mean Corpuscular Hemoglobin Concent 33 g/dL (31-37) Red Cell Distribution Width 13.5 % (11.5-14.5) Platelet Count 278 x10^3/uL (140-400) Neutrophils (%) (Auto) 67 % (31-73) Lymphocytes (%) (Auto) 19 % (24-48) Monocytes (%) (Auto) 11 % (0-9) Eosinophils (%) (Auto) 3 % (0-3) Basophils (%) (Auto) 1 % (0-3) Neutrophils # (Auto) 7.2 x10^3/uL (1.8-7.7) Lymphocytes # (Auto) 2.0 x10^3/uL (1.0-4.8) Monocytes # (Auto) 1.2 x10^3/uL (0.0-1.1) Eosinophils # (Auto) 0.3 x10^3/uL (0.0-0.7) Basophils # (Auto) 0.1 x10^3/uL (0.0-0.2) Sodium Level 136 mmol/L (136-145) Potassium Level 3.9 mmol/L (3.5-5.1) Chloride Level 101 mmol/L (98-107) Carbon Dioxide Level 24 mmol/L (21-32) Anion Gap 11 (6-14) Blood Urea Nitrogen 35 mg/dL (7-20) Creatinine 1.2 mg/dL (0.6-1.0) Estimated GFR (Cockcroft-Gault) 42.9 Glucose Level 149 mg/dL (70-99) Calcium Level 8.7 mg/dL (8.5-10.1) Glucose (Fingerstick) 115 mg/dL (70-99) Microbiology 06/29/20 Blood Culture - Preliminary, Resulted NO GROWTH AFTER 4 DAYS Medications Current Medications Sodium Chloride 1,000 ml @ 1,000 mls/hr Q1H IV Last administered on 06/29/20at 22:46; Start 06/29/20 at 21:30; Stop 06/29/20 at 23:11; Status DC Piperacillin Sod/ Tazobactam Sod 4.5 gm/Sodium Chloride 100 ml @ 200 mls/hr 1X ONCE IV Last administered on 06/29/20at 22:04; Start 06/29/20 at 21:30; Stop 06/29/20 at 21:59; Status DC Vancomycin HCl (Vanco Per Pharmacy) 1 each PRN DAILY PRN [facility] SEE COMMENTS Last administered on 06/30/20at 01:51; Start 06/29/20 at 21:00; Stop 07/01/20 at 13:42; Status DC Morphine Sulfate (Morphine Sulfate) 2 mg PRN Q15MIN PRN IV/SQ PAIN GREATER THAN 3/10 Last administered on 06/30/20at 05:32; Start 06/29/20 at 21:00; Stop 06/30/20 at 20:59; Status DC Vancomycin HCl 2 gm/Sodium Chloride 500 ml @ 250 mls/hr 1X ONCE IV Last administered on 06/29/20at 22:45; Start 06/29/20 at 22:00; Stop 06/29/20 at 23:59; Status DC Vancomycin HCl 1.25 gm/Sodium Chloride 250 ml @ 167 mls/hr Q24H IV Last administered on 06/30/20at 23:41; Start 06/30/20 at 23:00; Stop 07/01/20 at 13:42; Status DC Vancomycin HCl (Vancomycin Trough Level) 1 each 1X ONCE MC ; Start 07/01/20 at 22:30; Stop 07/01/20 at 22:31; Status Cancel Insulin Human Lispro (HumaLOG) 0-5 UNITS TIDWMEALS SQ Last administered on 07/03/20at 17:12; Start 06/30/20 at 12:00 Dextrose (Dextrose 50%-Water Syringe) 12.5 gm PRN Q15MIN PRN IV SEE COMMENTS; Start 06/30/20 at 08:30 Piperacillin Sod/ Tazobactam Sod (Zosyn Per Pharmacy) 1 each PRN DAILY PRN MC SEE COMMENTS; Start 06/30/20 at 10:30; Stop 07/01/20 at 14:42; Status DC Piperacillin Sod/ Tazobactam Sod 3.375 gm/Sodium Chloride 50 ml @ 100 mls/hr Q6HRS IV ; Start 06/30/20 at 11:00; Status Cancel Piperacillin Sod/ Tazobactam Sod 3.375 gm/Sodium Chloride 50 ml @ 100 mls/hr Q6HRS IV Last administered on 07/01/20at 06:09; Start 06/30/20 at 11:00; Stop 07/01/20 at 14:42; Status DC Sodium Chloride (Normal Saline Flush) 3 ml QSHIFT PRN IV AFTER MEDS AND BLOOD DRAWS; Start 06/30/20 at 13:30 Ondansetron HCl (Zofran) 4 mg PRN Q4HRS PRN IV NAUSEA/VOMITING; Start 06/30/20 at 13:30 Acetaminophen (Tylenol) 650 mg PRN Q4HRS PRN PO TEMP OVER 100.4F OR MILD PAIN; Start 06/30/20 at 13:30 Al Hydroxide/Mg Hydroxide (Mylanta Plus Xs) 30 ml PRN DAILY PRN PO HEARTBURN / GAS; Start 06/30/20 at 13:30 Clonidine HCl (Catapres) 0.1 mg PRN Q6HRS PRN PO SBP>160 OR DBP>90; Start 06/30/20 at 13:30 Sodium Monofluorophosphate (Fleet Adult) 133 ml PRN DAILY PRN [place] CONSTIPATION; Start 06/30/20 at 13:30 Docusate Sodium (Colace) 100 mg PRN BID PRN PO HARD STOOLS; Start 06/30/20 at 13:30 Albuterol Sulfate (Ventolin Neb Soln) 2.5 mg PRN Q4HRS PRN NEB SHORTNESS OF BREATH; Start 06/30/20 at 13:30 Guaifenesin (Robitussin) 200 mg PRN Q4HRS PRN PO COUGH; Start 06/30/20 at 13:30 Enoxaparin Sodium (Lovenox 40mg Syringe) 40 mg Q24H SQ Last administered on 07/03/20at 13:05; Start 06/30/20 at 14:00 Amlodipine Besylate (Norvasc) 10 mg DAILY PO Last administered on 07/04/20at 0 8:36; Start 07/01/20 at 09:00 Acetaminophen/ Hydrocodone Bitart (Lortab 5/325) 1 tab PRN Q6HRS PRN PO MODERATE PAIN Last administered on 07/03/20at 19:12; Start 06/30/20 at 13:30 Insulin Glargine (Lantus Syringe) 20 unit QHS SQ Last administered on 07/03/20at 21:27; Start 06/30/20 at 21:00 Ceftriaxone Sodium (Rocephin) 2 gm Q24H IVP Last administered on 07/02/20at 18:59; Start 07/01/20 at 16:00; Stop 07/03/20 at 13:56; Status DC Lactobacillus Rhamnosus (Culturelle) 1 cap BID PO Last administered on 0at 08:36; Start 07/01/20 at 21:00 Cefdinir (Omnicef) 300 mg BID PO Last administered on 07/04/20at 08:36; Start 07/03/20 at 21:00 Tizanidine HCl (Zanaflex) 4 mg PRN Q8HRS PRN PO MUSCLE SPASMS Last administered on 07/04/20at 08:36; Start 07/04/20 at 08:30 Active Scripts Active Ibuprofen 200 Mg Tablet 600 Mg PO TIDAFTMEAL 14 Days [place] 5-325 Tablet (Acetaminophen/Hydrocodone Bitart) 1 Each Tablet 1 Tab PO PRN Q6HRS PRN Reported Aspirin 325 Mg Tablet 1 Tab PO DAILY Amlodipine Besylate 5 Mg Tablet 5 Mg PO BID Humalog (Insulin Lispro) 100 Unit/1 Ml Vial 0 SQ SSI Lantus Solostar (Insulin Glargine,Hum.rec.anlog) 100 Unit/1 Ml Insuln.pen 12 Unit SQ QHS Metformin Hcl 500 Mg Tablet 500 Mg PO BIDWMEALS Vitals/I & O Vital Sign - Last 24 Hours 07/03/20 07/03/20 07/03/20 07/03/20 15:00 19:00 19:12 20:00 Temp 98.4 98.2 98.4 98.2 Pulse 74 75 Resp 18 18 B/P (MAP) 140/56 (84) 142/53 (82) Pulse Ox 98 99 O2 Delivery Room Air Room Air Room Air Room Air 07/03/20 07/03/20 07/04/20 07/04/20 20:15 23:00 03:00 07:00 Temp 98.1 98.3 98.2 98.1 98.3 98.2 Pulse 69 99 70 Resp 18 18 18 B/P (MAP) 120/50 (73) 129/57 (81) 159/62 (94) Pulse Ox 99 99 97 98 O2 Delivery Room Air Room Air Room Air Room Air 07/04/20 08:36 Pulse 99 B/P (MAP) 129/57 Intake and Output 07/03/20 07/03/20 07/04/20 15:00 23:00 07:00 Intake Total 480 ml 300 ml 300 ml Output Total 500 ml Balance 480 ml 300 ml -200 ml Justicifation of Admission Dx: Justifications for Admission: Justification of Admission Dx: Yes Sepsis: Bacteremia SHAMAR DUVALL MD Jul 04, 2020 11:30
[2020-07-04] MEDS ORDERED: CEFD300C PO (11:43)
--- NOTE | 2020-07-04 11:57 | PDOC3 ---
Discharge Summary Visit Information Date of Admission: Jun 29, 2020 Date of Discharge: Jul 05, 2020 Admitting Diagnosis: Cellulitis Final Diagnosis Problems Medical Problems: (1) Left leg cellulitis Status: Acute Brief Hospital Course Allergies Allergies Coded Allergies Type Severity Reaction Last Updated Verified No Known Drug Allergies 09/24/16 No Vital Signs Vital Signs Date Time Temp Pulse Resp B/P (MAP) Pulse Ox O2 Delivery O2 Flow Rate FiO2 07/04/20 08:36 99 129/57 07/04/20 07:00 98.2 18 98 Room Air 98.2 Lab Results Laboratory Tests Test 07/02/20 16:39 07/02/20 20:12 07/03/20 07:53 07/03/20 11:41 Glucose (Fingerstick) 140 mg/dL (70-99) 171 mg/dL (70-99) 129 mg/dL (70-99) 233 mg/dL (70-99) Test 07/03/20 16:42 07/03/20 17:45 07/03/20 20:59 07/04/20 04:00 Glucose (Fingerstick) 294 mg/dL (70-99) 220 mg/dL (70-99) SARS-CoV-2 Antigen (Rapid) Negative (NEGATIVE) White Blood Count 10.8 x10^3/uL (4.0-11.0) Red Blood Count 3.73 x10^6/uL (3.50-5.40) Hemoglobin 10.9 g/dL (12.0-15.5) Hematocrit 33.2 % (36.0-47.0) Mean Corpuscular Volume 89 fL (79-100) Mean Corpuscular Hemoglobin 29 pg (25-35) Mean Corpuscular Hemoglobin Concent 33 g/dL (31-37) Red Cell Distribution Width 13.5 % (11.5-14.5) Platelet Count 278 x10^3/uL (140-400) Neutrophils (%) (Auto) 67 % (31-73) Lymphocytes (%) (Auto) 19 % (24-48) Monocytes (%) (Auto) 11 % (0-9) Eosinophils (%) (Auto) 3 % (0-3) Basophils (%) (Auto) 1 % (0-3) Neutrophils # (Auto) 7.2 x10^3/uL (1.8-7.7) Lymphocytes # (Auto) 2.0 x10^3/uL (1.0-4.8) Monocytes # (Auto) 1.2 x10^3/uL (0.0-1.1) Eosinophils # (Auto) 0.3 x10^3/uL (0.0-0.7) Basophils # (Auto) 0.1 x10^3/uL (0.0-0.2) Sodium Level 136 mmol/L (136-145) Potassium Level 3.9 mmol/L (3.5-5.1) Chloride Level 101 mmol/L (98-107) Carbon Dioxide Level 24 mmol/L (21-32) Anion Gap 11 (6-14) Blood Urea Nitrogen 35 mg/dL (7-20) Creatinine 1.2 mg/dL (0.6-1.0) Estimated GFR (Cockcroft-Gault) 42.9 Glucose Level 149 mg/dL (70-99) Calcium Level 8.7 mg/dL (8.5-10.1) Test 07/04/20 07:44 Glucose (Fingerstick) 115 mg/dL (70-99) Laboratory Tests Test 07/03/20 16:42 07/03/20 17:45 07/03/20 20:59 07/04/20 04:00 Glucose (Fingerstick) 294 mg/dL (70-99) 220 mg/dL (70-99) SARS-CoV-2 Antigen (Rapid) Negative (NEGATIVE) White Blood Count 10.8 x10^3/uL (4.0-11.0) Red Blood Count 3.73 x10^6/uL (3.50-5.40) Hemoglobin 10.9 g/dL (12.0-15.5) Hematocrit 33.2 % (36.0-47.0) Mean Corpuscular Volume 89 fL (79-100) Mean Corpuscular Hemoglobin 29 pg (25-35) Mean Corpuscular Hemoglobin Concent 33 g/dL (31-37) Red Cell Distribution Width 13.5 % (11.5-14.5) Platelet Count 278 x10^3/uL (140-400) Neutrophils (%) (Auto) 67 % (31-73) Lymphocytes (%) (Auto) 19 % (24-48) Monocytes (%) (Auto) 11 % (0-9) Eosinophils (%) (Auto) 3 % (0-3) Basophils (%) (Auto) 1 % (0-3) Neutrophils # (Auto) 7.2 x10^3/uL (1.8-7.7) Lymphocytes # (Auto) 2.0 x10^3/uL (1.0-4.8) Monocytes # (Auto) 1.2 x10^3/uL (0.0-1.1) Eosinophils # (Auto) 0.3 x10^3/uL (0.0-0.7) Basophils # (Auto) 0.1 x10^3/uL (0.0-0.2) Sodium Level 136 mmol/L (136-145) Potassium Level 3.9 mmol/L (3.5-5.1) Chloride Level 101 mmol/L (98-107) Carbon Dioxide Level 24 mmol/L (21-32) Anion Gap 11 (6-14) Blood Urea Nitrogen 35 mg/dL (7-20) Creatinine 1.2 mg/dL (0.6-1.0) Estimated GFR (Cockcroft-Gault) 42.9 Glucose Level 149 mg/dL (70-99) Calcium Level 8.7 mg/dL (8.5-10.1) Test 07/04/20 07:44 Glucose (Fingerstick) 115 mg/dL (70-99) Brief Hospital Course Ms. Casanova is a 85 old F who presented with wound on the left castanon that she noted for 1 week. Associated blister that opened up and became a wound. She was admitted and treated with wound care nurse consult, empiric IV antibiotics, and ID consult. Doppler both legs negative for DVT or stenosis. Her antibiotics were swithced to PO, and she was stable to discharge to SNF on 07/04/20. Assessment Assessment Left Leg Cellulitis Discharge Information Condition at Discharge: Improved Follow Up: Weeks Disposition/Orders: D/C to Another Facility Scheduled Amlodipine Besylate (Amlodipine Besylate) 5 Mg Tablet, 5 MG PO BID for htn, (Reported) Entered as Reported by: DIANNE COVARRUBIAS on 06/30/201646 Last Action: New Order on 06/30/201646 by DIANNE COVARRUBIAS Aspirin (Aspirin) 325 Mg Tablet, 1 TAB PO DAILY for heart, #30 Ref 5 (Reported) Entered as Reported by: DIANNE COVARRUBIAS on 06/30/201646 Last Action: New Order on 06/30/201646 by DIANNE COVARRUBIAS Cefdinir (Cefdinir) 300 Mg Capsule, 300 MG PO BID for Leg Cellulitis for 5 Days, #10 Prescribed by: SHAMAR DUVALL MD on 07/04/20 1143 Ibuprofen (Ibuprofen) 200 Mg Tablet, 600 MG PO TIDAFTMEAL for pain for 14 Days, #126 Prescribed by: CELESTINO MIRELES on 11/10/19 1038 Last Action: HELD on 06/30/201322 by QUINTEN MANCILLA MD Insulin Glargine,Hum.rec.anlog (Lantus Solostar) 100 Unit/1 Ml Insuln.pen, 12 UNIT SQ QHS for dm, #15 Ref 5 (Reported) Entered as Reported by: VERONICA MOHR on 12/04/172157 Last Action: Edited on 06/30/201646 by DIANNE COVARRUBIAS Insulin Lispro (Humalog) 100 Unit/1 Ml Vial, 0 SQ SSI for dm, (Reported) Entered as Reported by: SANDER MOSCOSO RN on 11/09/19 1234 Last Action: HELD on 06/30/201322 by QUINTEN MANCILLA MD Metformin Hcl (Metformin Hcl) 500 Mg Tablet, 500 MG PO BIDWMEALS for ANTI- DIABETIC, Ref 0 (Reported) Entered as Reported by: VERONICA MOHR on 12/04/172157 Last Action: Reviewed on 06/30/201646 by DIANNE COVARRUBIAS Scheduled PRN Hydrocodone/Apap 5-325 ([place] 5-325 Tablet) 1 Each Tablet, 1 TAB PO PRN Q6HRS PRN for PAIN, #30 Prescribed by: LEVI CHOWDARY D.O. on 09/24/16 1833 Last Action: Continued on 06/30/201322 by QUINTEN MANCILLA MD Discontinued Medications Amlodipine Besylate (Amlodipine Besylate) 10 Mg Tablet, 10 MG PO DAILY, (Reported) Discontinued Reason: Prescription changed Entered as Reported by: VERONICA MOHR on 12/04/172157 Last Action: Continued on 06/30/201322 by QUINTEN W FULBRIGHT, MD Justicifation of Admission Dx: Justifications for Admission: Justification of Admission Dx: Yes Sepsis: Bacteremia SHAMAR DUVALL MD Jul 04, 2020 11:57
--- NOTE | 2020-07-04 13:11 | SNU/HH DC ---
DISCHARGE ORDERS DISCHARGE INFORMATION: DISCHARGE DATE: Jul 05, 2020 FINAL DIAGNOSIS Problems Medical Problems: (1) Left leg cellulitis Status: Acute CONDITION ON DISCHARGE: Stable CODE STATUS: Code Status: Full CARE HOME: SNF STAY <30 DAYS: Yes HOSPICE: HOSPICE: No HOSPICE EVAL & TREAT: No LTAC: ADMIT TO LTAC: No POST DISCHARGE ORDERS: ACTIVITY ORDERS: Activity as tolerated WEIGHT BEARING STATUS: As tolerated DIET AFTER DISCHARGE: Cardiac WOUND/INCISION CARE: Change dressing CHECKS AFTER DISCHARGE: CHECKS AFTER DISCHARGE: Check blood sugar, ac/hs TREATMENT/EQUIPMENT ORDERS: ADAPTIVE EQUIPMENT NEEDED: None, Front wheeled walker Physical Therapy For: Evalulation/Treatment Occupational Therapy For: Evaluation/Treatment Speech Language Pathology For: Evaluation/Treatment DISCHARGE MEDICATIONS: Home Meds Active Scripts Cefdinir (CEFDINIR) 300 Mg Capsule, 300 MG PO BID for Leg Cellulitis for 5 Days, #10 CAP Prov:SHAMAR DUVALL MD 07/04/20 Ibuprofen (Ibuprofen) 200 Mg Tablet, 600 MG PO TIDAFTMEAL for pain for 14 Days, #126 TAB Prov:ECLESTINO MIRELES MD 11/10/19 Hydrocodone/Apap 5-325 ([place] 5-325 TABLET) 1 Each Tablet, 1 TAB PO PRN Q6HRS PRN for PAIN, #30 TAB Prov:LEVI CHOWDARY DO 09/24/16 Reported Medications Aspirin (ASPIRIN) 325 Mg Tablet, 1 TAB PO DAILY for heart, #30 TAB 5 Refills 06/30/20 Amlodipine Besylate (AMLODIPINE BESYLATE) 5 Mg Tablet, 5 MG PO BID for htn, TAB 06/30/20 Insulin Lispro (HUMALOG) 100 Unit/1 Ml Vial, 0 SQ SSI for dm, VIAL 11/09/19 Insulin Glargine,Hum.rec.anlog (LANTUS SOLOSTAR) 100 Unit/1 Ml Insuln.pen, 12 UNIT SQ QHS for dm, #15 ML 5 Refills 12/04/17 Metformin Hcl (METFORMIN HCL) 500 Mg Tablet, 500 MG PO BIDWMEALS for ANTI- DIABETIC, TAB 0 Refills 12/04/17 Discontinued Reported Medications Amlodipine Besylate (AMLODIPINE BESYLATE) 10 Mg Tablet, 10 MG PO DAILY, TAB 12/04/17 SHAMAR DUVALL MD Jul 04, 2020 13:11
[2020-07-04] MEDS: HYDROcodone/APAP 5/325MG 1 TAB TABLET PO PRN ×2 (13:23→20:15)
[2020-07-04] MEDS: ENOXAPARIN 40 MG/0.4 ML SYRINGE. SQ SCH (13:23)
[2020-07-04 15:00] VITALS: BP 118/48
[2020-07-04 19:22] VITALS: BP 133/50
--- NOTE | 2020-07-04 21:00 | NUR ---
Mr. Bonner paged and returned call about Insulin being the wrong dose ordered. ordered by telephone correct dose.
[2020-07-04] MEDS ORDERED: INSULIN GLARGINE SYRINGE. SQ SCH (22:15)
[2020-07-04 23:02] VITALS: BP 119/51
[2020-07-05 03:00] VITALS: BP 130/57
[2020-07-05 07:00] VITALS: BP 200/60
[2020-07-05] MEDS: INSULIN LISPRO 300 UNITS/3 ML VIAL. SQ SCH ×2 (08:00→12:19)
[2020-07-05] MEDS: HYDROcodone/APAP 5/325MG 1 TAB TABLET PO PRN ×2 (08:00→13:54)
[2020-07-05] MEDS: CEFDINIR 300 MG CAPSULE PO SCH (08:01)
[2020-07-05] MEDS: LACTOBACILLUS RHAMNOSUS GG 1 CAPSULE. PO SCH (08:01)
[2020-07-05] MEDS: amLODIPine BESYLATE 10 MG TABLET PO SCH (08:05)
[2020-07-05 09:40] VITALS: BP 128/42
[2020-07-05 11:00] VITALS: BP 130/42
--- NOTE | 2020-07-05 16:35 | NUR ---
Discharged orders placed. Discussed hospital stay with MANNY Zhou from [facility]. Explained pain management and current blood glucose levels. Winnie verbalizes understanding accepting pt to facility. Pt wheeled off unit accompanied by transportation without complications.
--- NOTE | 2020-07-05 19:03 | PDOC ---
PROGRESS NOTES Date of Service: DATE: 07/05/20 TIME: 19:03 Chief Complaint Chief Complaint Left leg cellulitis in DM2, DIABETES 2, poor control obese, BMI 37 Prior TKA LEFT KNEE 2017 weakness and debility History of Present Illness History of Present Illness Patient reports improvement in her pain. Denies fever or nausea. Feels ready to discharge to SNU. Vitals Vitals Vital Signs Date Time Temp Pulse Resp B/P (MAP) Pulse Ox O2 Delivery O2 Flow Rate FiO2 07/05/20 13:54 16 Room Air 07/05/20 11:00 98.3 74 130/42 (71) 94 98.3 Physical Exam Physical Exam GENERAL: Propped up in a chair, alert HEENT: Pupils equally round. Oropharynx pink and moist. No lesions seen. NECK: Supple. LUNGS: Clear to auscultation. HEART: S1, S2. ABDOMEN: Obese, soft, nontender with bowel sounds present. EXTREMITIES: Unremarkable except left lower extremity mildly swollen, + wrinkles - better. She has a fairly superficial irregular shaped ulceration anterior castanon with surrounding mild erythema. She has a callus of the left heel. Left knee without warmth, redness or swelling, scar is well healed. SKIN: Warm to touch. No signs of rash. NEUROLOGIC: Alert, answering questions appropriately. General: Alert, Oriented X3, Cooperative, No acute distress Heart: Regular rate Lungs: Clear, Other Abdomen: Soft Extremities: Other (LLE banged with dressings clean, dry, intact.) Skin: No rashes, No breakdown Labs LABS Laboratory Tests Test 07/04/20 20:53 07/05/20 07:43 07/05/20 11:17 Glucose (Fingerstick) 177 mg/dL (70-99) 134 mg/dL (70-99) 211 mg/dL (70-99) Assessment and Plan Assessmemt and Plan Problems Medical Problems: (1) Left leg cellulitis Status: Acute Comment Review of Relevant I have reviewed the following items noam (where applicable) has been applied. Labs Laboratory Tests Test 07/03/20 20:59 07/04/20 04:00 07/04/20 07:44 07/04/20 12:07 Glucose (Fingerstick) 220 mg/dL (70-99) 115 mg/dL (70-99) 330 mg/dL (70-99) White Blood Count 10.8 x10^3/uL (4.0-11.0) Red Blood Count 3.73 x10^6/uL (3.50-5.40) Hemoglobin 10.9 g/dL (12.0-15.5) Hematocrit 33.2 % (36.0-47.0) Mean Corpuscular Volume 89 fL (79-100) Mean Corpuscular Hemoglobin 29 pg (25-35) Mean Corpuscular Hemoglobin Concent 33 g/dL (31-37) Red Cell Distribution Width 13.5 % (11.5-14.5) Platelet Count 278 x10^3/uL (140-400) Neutrophils (%) (Auto) 67 % (31-73) Lymphocytes (%) (Auto) 19 % (24-48) Monocytes (%) (Auto) 11 % (0-9) Eosinophils (%) (Auto) 3 % (0-3) Basophils (%) (Auto) 1 % (0-3) Neutrophils # (Auto) 7.2 x10^3/uL (1.8-7.7) Lymphocytes # (Auto) 2.0 x10^3/uL (1.0-4.8) Monocytes # (Auto) 1.2 x10^3/uL (0.0-1.1) Eosinophils # (Auto) 0.3 x10^3/uL (0.0-0.7) Basophils # (Auto) 0.1 x10^3/uL (0.0-0.2) Sodium Level 136 mmol/L (136-145) Potassium Level 3.9 mmol/L (3.5-5.1) Chloride Level 101 mmol/L (98-107) Carbon Dioxide Level 24 mmol/L (21-32) Anion Gap 11 (6-14) Blood Urea Nitrogen 35 mg/dL (7-20) Creatinine 1.2 mg/dL (0.6-1.0) Estimated GFR (Cockcroft-Gault) 42.9 Glucose Level 149 mg/dL (70-99) Calcium Level 8.7 mg/dL (8.5-10.1) Test 07/04/20 16:41 07/04/20 20:53 07/05/20 07:43 07/05/20 11:17 Glucose (Fingerstick) 255 mg/dL (70-99) 177 mg/dL (70-99) 134 mg/dL (70-99) 211 mg/dL (70-99) Laboratory Tests Test 07/04/20 20:53 07/05/20 07:43 07/05/20 11:17 Glucose (Fingerstick) 177 mg/dL (70-99) 134 mg/dL (70-99) 211 mg/dL (70-99) Microbiology 06/29/20 Blood Culture - Final, Complete NO GROWTH AFTER 5 DAYS Medications Current Medications Sodium Chloride 1,000 ml @ 1,000 mls/hr Q1H IV Last administered on 06/29/20at 22:46; Start 06/29/20 at 21:30; Stop 06/29/20 at 23:11; Status DC Piperacillin Sod/ Tazobactam Sod 4.5 gm/Sodium Chloride 100 ml @ 200 mls/hr 1X ONCE IV Last administered on 06/29/20at 22:04; Start 06/29/20 at 21:30; Stop 06/29/20 at 21:59; Status DC Vancomycin HCl (Vanco Per Pharmacy) 1 each PRN DAILY PRN MC SEE COMMENTS Last administered on 06/30/20at 01:51; Start 06/29/20 at 21:00; Stop 07/01/20 at 13:42; Status DC Morphine Sulfate (Morphine Sulfate) 2 mg PRN Q15MIN PRN IV/SQ PAIN GREATER THAN 3/10 Last administered on 06/30/20at 05:32; Start 06/29/20 at 21:00; Stop 06/30/20 at 20:59; Status DC Vancomycin HCl 2 gm/Sodium Chloride 500 ml @ 250 mls/hr 1X ONCE IV Last administered on 06/29/20at 22:45; Start 06/29/20 at 22:00; Stop 06/29/20 at 23:59; Status DC Vancomycin HCl 1.25 gm/Sodium Chloride 250 ml @ 167 mls/hr Q24H IV Last administered on 06/30/20at 23:41; Start 06/30/20 at 23:00; Stop 07/01/20 at 13:42; Status DC Vancomycin HCl (Vancomycin Trough Level) 1 each 1X ONCE MC ; Start 07/01/20 at 22:30; Stop 07/01/20 at 22:31; Status Cancel Insulin Human Lispro (HumaLOG) 0-5 UNITS TIDWMEALS SQ Last administered on 07/05/20at 12:19; Start 06/30/20 at 12:00 Dextrose (Dextrose 50%-Water Syringe) 12.5 gm PRN Q15MIN PRN IV SEE COMMENTS; Start 06/30/20 at 08:30 Piperacillin Sod/ Tazobactam Sod (Zosyn Per Pharmacy) 1 each PRN DAILY PRN MC SEE COMMENTS; Start 06/30/20 at 10:30; Stop 07/01/20 at 14:42; Status DC Piperacillin Sod/ Tazobactam Sod 3.375 gm/Sodium Chloride 50 ml @ 100 mls/hr Q6HRS IV ; Start 06/30/20 at 11:00; Status Cancel Piperacillin Sod/ Tazobactam Sod 3.375 gm/Sodium Chloride 50 ml @ 100 mls/hr Q6HRS IV Last administered on 07/01/20at 06:09; Start 06/30/20 at 11:00; Stop 07/01/20 at 14:42; Status DC Sodium Chloride (Normal Saline Flush) 3 ml QSHIFT PRN IV AFTER MEDS AND BLOOD DRAWS; Start 06/30/20 at 13:30 Ondansetron HCl (Zofran) 4 mg PRN Q4HRS PRN IV NAUSEA/VOMITING; Start 06/30/20 at 13:30 Acetaminophen (Tylenol) 650 mg PRN Q4HRS PRN PO TEMP OVER 100.4F OR MILD PAIN; Start 06/30/20 at 13:30 Al Hydroxide/Mg Hydroxide (Mylanta Plus Xs) 30 ml PRN DAILY PRN PO HEARTBURN / GAS; Start 06/30/20 at 13:30 Clonidine HCl (Catapres) 0.1 mg PRN Q6HRS PRN PO SBP>160 OR DBP>90; Start 06/30/20 at 13:30 Sodium Monofluorophosphate (Fleet Adult) 133 ml PRN DAILY PRN AL CONSTIPATION; Start 06/30/20 at 13:30 Docusate Sodium (Colace) 100 mg PRN BID PRN PO HARD STOOLS; Start 06/30/20 at 13:30 Albuterol Sulfate (Ventolin Neb Soln) 2.5 mg PRN Q4HRS PRN NEB SHORTNESS OF BREATH; Start 06/30/20 at 13:30 Guaifenesin (Robitussin) 200 mg PRN Q4HRS PRN PO COUGH; Start 06/30/20 at 13:30 Enoxaparin Sodium (Lovenox 40mg Syringe) 40 mg Q24H SQ Last administered on 07/04/20at 13:23; Start 06/30/20 at 14:00 Amlodipine Besylate (Norvasc) 10 mg DAILY PO Last administered on 07/05/20at 08:05; Start 07/01/20 at 09:00 Acetaminophen/ Hydrocodone Bitart (Lortab 5/325) 1 tab PRN Q6HRS PRN PO MODERATE PAIN Last administered on 07/05/20at 13:54; Start 06/30/20 at 13:30 Insulin Glargine (Lantus Syringe) 20 unit QHS SQ Last administered on 07/03/20at 21:27; Start 06/30/20 at 21:00; Stop 07/04/20 at 22:06; Status DC Ceftriaxone Sodium (Rocephin) 2 gm Q24H IVP Last administered on 07/02/20at 18:59; Start 07/01/20 at 16:00; Stop 07/03/20 at 13:56; Status DC Lactobacillus Rhamnosus (Culturelle) 1 cap BID PO Last administered on 07/05/20at 08:01; Start 07/01/20 at 21:00 Cefdinir (Omnicef) 300 mg BID PO Last administered on 07/05/20at 08:01; Start 07/03/20 at 21:00 Tizanidine HCl (Zanaflex) 4 mg PRN Q8HRS PRN PO MUSCLE SPASMS Last administered on 07/04/20at 08:36; Start 07/04/20 at 08:30 Insulin Glargine (Lantus Syringe) 15 unit QHS SQ Last administered on 07/04/20at 22:15; Start 07/04/20 at 22:15 Active Scripts Active Cefdinir 300 Mg Capsule 300 Mg PO BID 5 Days Ibuprofen 200 Mg Tablet 600 Mg PO TIDAFTMEAL 14 Days [place] 5-325 Tablet (Acetaminophen/Hydrocodone Bitart) 1 Each Tablet 1 Tab PO PRN Q6HRS PRN Reported Aspirin 325 Mg Tablet 1 Tab PO DAILY Amlodipine Besylate 5 Mg Tablet 5 Mg PO BID Humalog (Insulin Lispro) 100 Unit/1 Ml Vial 0 SQ SSI Lantus Solostar (Insulin Glargine,Hum.rec.anlog) 100 Unit/1 Ml Insuln.pen 12 Unit SQ QHS Metformin Hcl 500 Mg Tablet 500 Mg PO BIDWMEALS Vitals/I & O Vital Sign - Last 24 Hours 07/04/20 07/04/20 07/04/20 07/04/20 19:22 20:00 20:15 22:17 Temp 98.5 98.5 Pulse 74 Resp 18 B/P (MAP) 133/50 (77) Pulse Ox 100 O2 Delivery Room Air Room Air Room Air Room Air 07/04/20 07/05/20 07/05/20 07/05/20 23:02 03:00 07:00 07:45 Temp 98.3 98.4 97.8 98.3 98.4 97.8 Pulse 74 73 75 Resp 16 18 18 B/P (MAP) 119/51 (73) 130/57 (81) 200/60 (106) Pulse Ox 96 96 96 O2 Delivery Room Air Room Air Room Air Room Air 07/05/20 07/05/20 07/05/20 07/05/20 08:00 08:05 09:00 09:40 Pulse 76 Resp 14 18 B/P (MAP) 200/60 128/42 (70) O2 Delivery Room Air Nasal Cannula 07/05/20 07/05/20 11:00 13:54 Temp 98.3 98.3 Pulse 74 Resp 18 16 B/P (MAP) 130/42 (71) Pulse Ox 94 O2 Delivery Room Air Room Air Intake and Output0 07/04/20 07/04/20 07/05/20 15:00 23:00 07:00 Intake Total 420 ml 100 ml Output Total 0 ml Balance 420 ml 100 ml 0 ml Justicifation of Admission Dx: Justifications for Admission: Justification of Admission Dx: Yes Sepsis: Bacteremia SHAMAR DUVALL MD Jul 05, 2020 19:03
--- NOTE | 2020-07-06 11:41 | PDOC3 ---
Discharge Summary Visit Information Date of Admission: Jun 29, 2020 Date of Discharge: Jul 05, 2020 Admitting Diagnosis: Cellulitis Final Diagnosis Problems Medical Problems: (1) Left leg cellulitis Status: Acute Brief Hospital Course Allergies Allergies Coded Allergies Type Severity Reaction Last Updated Verified No Known Drug Allergies 09/24/16 No Vital Signs Vital Signs Date Time Temp Pulse Resp B/P (MAP) Pulse Ox O2 Delivery O2 Flow Rate FiO2 07/05/20 13:54 16 Room Air 07/05/20 11:00 98.3 74 130/42 (71) 94 98.3 Lab Results Laboratory Tests Test 07/04/20 12:07 07/04/20 16:41 07/04/20 20:53 07/05/20 07:43 Glucose (Fingerstick) 330 mg/dL (70-99) 255 mg/dL (70-99) 177 mg/dL (70-99) 134 mg/dL (70-99) Test 07/05/20 11:17 Glucose (Fingerstick) 211 mg/dL (70-99) Brief Hospital Course Ms. Casanova is a 85 old F who presented with a wound on the left castanon that she noted for 1 week. Associated blister that opened up and became a wound. She was admitted and treated with wound care nurse consult, empiric IV antibiotics, and ID consult. Doppler both legs negative for DVT or stenosis. Her antibiotics were swithced to PO, and she was stable to discharge to SNF on 07/05/20 Assessment Assessment Patient was stable for skilled rehab Discharge Information Condition at Discharge: Improved Disposition/Orders: D/C to Another Facility Scheduled Amlodipine Besylate (Amlodipine Besylate) 5 Mg Tablet, 5 MG PO BID for htn, (Reported) Entered as Reported by: DIANNE COVARRUBIAS on 06/30/201646 Last Action: New Order on 06/30/201646 by DIANNE COVARRUBIAS Aspirin (Aspirin) 325 Mg Tablet, 1 TAB PO DAILY for heart, #30 Ref 5 (Reported) Entered as Reported by: DIANNE COVARRUBIAS on 06/30/201646 Last Action: New Order on 06/30/201646 by DIANNE COVARRUBIAS Cefdinir (Cefdinir) 300 Mg Capsule, 300 MG PO BID for Leg Cellulitis for 5 Days, #10 Prescribed by: SHAMAR DUVALL MD on 07/04/20 1143 Ibuprofen (Ibuprofen) 200 Mg Tablet, 600 MG PO TIDAFTMEAL for pain for 14 Days, #126 Prescribed by: CELESTINO MIRELES on 11/10/19 1038 Last Action: HELD on 06/30/201322 by QUINTEN MANCILLA MD Insulin Glargine,Hum.rec.anlog (Lantus Solostar) 100 Unit/1 Ml Insuln.pen, 12 UNIT SQ QHS for dm, #15 Ref 5 (Reported) Entered as Reported by: VERONICA MOHR on 12/04/172157 Last Action: Edited on 06/30/201646 by DIANNE COVARRUBIAS Insulin Lispro (Humalog) 100 Unit/1 Ml Vial, 0 SQ SSI for dm, (Reported) Entered as Reported by: SANDER MOSCOSO RN on 11/09/19 1234 Last Action: HELD on 06/30/201322 by QUINTEN MANCILLA MD Metformin Hcl (Metformin Hcl) 500 Mg Tablet, 500 MG PO BIDWMEALS for ANTI- DIABETIC, Ref 0 (Reported) Entered as Reported by: VERONICA MOHR on 12/04/172157 Last Action: Reviewed on 06/30/201646 by DIANNE COVARRUBIAS Scheduled PRN Hydrocodone/Apap 5-325 ([place] 5-325 Tablet) 1 Each Tablet, 1 TAB PO PRN Q6HRS PRN for PAIN, #30 Prescribed by: LEVI CHOWDARY D.O. on 09/24/16 1833 Last Action: Continued on 06/30/201322 by QUINTEN MANCILLA MD Discontinued Medications Amlodipine Besylate (Amlodipine Besylate) 10 Mg Tablet, 10 MG PO DAILY, (Reported) Discontinued Reason: Prescription changed Entered as Reported by: VERONICA MOHR on 12/04/172157 Last Action: Continued on 06/30/201322 by QUINTEN MANCILLA MD Justicifation of Admission Dx: Justifications for Admission: Justification of Admission Dx: Yes Sepsis: Bacteremia SHAMAR DUVALL MD Jul 06, 2020 11:41
== END 2020-07-05 16:35 | DRG 606 ==
LOC: ER 20:22 → ED HOLD 21:41 → 4 NORTH 06-30 13:43
PROVIDERS: ADMIT Internal Medicine; ATTEND Internal Medicine
DX: S80.822A Blister (nonthermal), left lower leg, initial encounter (principal); N17.0 Acute kidney failure with tubular necrosis; L03.116 Cellulitis of left lower limb; L97.929 Non-pressure chronic ulcer of unspecified part of left lower leg with unspecified severity; E11.621 Type 2 diabetes mellitus with foot ulcer; M19.90 Unspecified osteoarthritis, unspecified site; K21.9 Gastro-esophageal reflux disease without esophagitis; I10 Essential (primary) hypertension; Z20.828 Contact with and (suspected) exposure to other viral communicable diseases; Z96.652 Presence of left artificial knee joint; Z68.37 Body mass index [BMI] 37.0-37.9, adult; L84 Corns and callosities; R53.81 Other malaise; E66.9 Obesity, unspecified; T24.002A Burn of unspecified degree of unspecified site of left lower limb, except ankle and foot, initial encounter; Z79.4 Long term (current) use of insulin; Z79.82 Long term (current) use of aspirin; Z86.19 Personal history of other infectious and parasitic diseases; Y93.89 Activity, other specified; Y92.89 Other specified places as the place of occurrence of the external cause; Y99.8 Other external cause status; Z90.49 Acquired absence of other specified parts of digestive tract; Z82.49 Family history of ischemic heart disease and other diseases of the circulatory system
CPT/HCPCS: 36415; 80048; 80053; 82565; 82962; 83036; 83605; 84145; 85025; 87040; 87426; 93925; 93971; 94760; 96365; 96367; J0696; J1650; J1815; J2270; J2543; J3370; J7030; J7040; J7050; 97530-GO; 97535-GO; 99285-25; G0378; U0003-CS

== ENCOUNTER 2021-06-23 14:59 | Emergency (ER) | payer MEDICARE ==
[~2021-06-23] VITALS: Ht 167.6 cm; Wt 91.8 kg
[~2021-06-23 14:59] MED LIST changes: +AMLO-186 PO; +AMLO-187 PO; -AMLO10TA8 PO; +ASPI325T8 PO; +ATOR20TA58 PO; +CARV12.511 PO; +CEFD300C PO; +LISI10TA16 PO; +OXYB5TAB10 PO
[2021-06-23 16:14] VITALS: BP 211/86
--- NOTE | 2021-06-23 17:13 | RAD ---
EXAM: XR FOOT_RIGHT 3 VIEWS 06/23/2021 4:29 PM CLINICAL INDICATION: Chronic pain COMPARISON: None TECHNIQUE: 3 views of the right foot FINDINGS: Bones are diffusely mineralized. There is no displaced fracture. Alignment is normal. Join t spaces are maintained. There is a prominent plantar calcaneal enthesophyte. Moderate dorsal soft ti ssue swelling of the forefoot. IMPRESSION: No acute osseous abnormality. Moderate dorsal soft tissue swelling of the forefoot. Electronically signed by: Shannan Harrison MD (06/23/2021 5:11 PM) [id number]
[2021-06-23] MEDS ORDERED: DICL20GE TP (17:40)
[2021-06-23] MEDS ORDERED: GABA-585 PO (17:40)
--- NOTE | 2021-06-23 17:40 | PHYS DOC ---
Past Medical History Past Medical History: Arthritis, Diabetes-Type II, Gallstones, Hypertension, Other Additional Past Medical Histor: SHINGLES Past Surgical History: Cholecystectomy, Tubal ligation Additional Past Surgical Histo: gallstones Smoking Status: Unknown if ever smoked Alcohol Use: None Drug Use: None General Adult EDM: Chief Complaint: LOWER EXTREMITY SWELLING HPI: HPI: Patient is a 86 year old female with history of diabetes type 2, hypertension, who presents to the ED today complaining of 8 out of 10 right foot pain and swelling for 3 to 4 years. Patient denies any known injuries. Describes the pain as sharp and intermittent. Denies anything specifically exacerbating or relieving the pain. She states she has followed up with her own PCP as well as a photogrammetric compilation specialist and they told her she has bruising in her foot. She states she has tried compression stockings but they do not feel comfortable. She states she keeps her feet elevated Review of Systems: Review of Systems: Constitutional: Denies fever or chills. [] Musculoskeletal: Reports right foot pain and swelling for 3 to 4 years denies back pain or joint pain. [] Integument: Denies rash. [] Neurologic: Denies headache, focal weakness or sensory changes. [] ] Psychiatric: Denies depression or anxiety. [] Heart Score: C/O Chest Pain: N/A Risk Factors: Risk Factors: DM, Current or recent (<one month) smoker, HTN, HLP, family history of CAD, obesity. Risk Scores: Score 0 - 3: 2.5% MACE over next 6 weeks - Discharge Home Score 4 - 6: 20.3% MACE over next 6 weeks - Admit for Clinical Observation Score 7 - 10: 72.7% MACE over next 6 weeks - Early Invasive Strategies Allergies: Allergies: Allergies Coded Allergies Type Severity Reaction Last Updated Verified No Known Drug Allergies 09/24/16 No Physical Exam: PE: Constitutional: Well developed, well nourished, no acute distress, non-toxic appearance. [] Skin: Warm, dry, no erythema, no rash. [] Back: No tenderness, no CVA tenderness. [] Extremities: Bilateral lower extremities appear to have chronic +2 edema, no deformities, diffuse tenderness on the right foot. Negative Homans' sign bilaterally. Full range of motion to the right foot and toes. +2 right pedal pulse. Cap refill less than 2 seconds to right toes. Neurologic: Alert and oriented X 3, normal motor function, normal sensory function, no focal deficits noted. [] Psychologic: Affect normal, judgement normal, mood normal. [] Current Patient Data: Vital Signs: Vital Signs Date Time Temp Pulse Resp B/P (MAP) Pulse Ox O2 Delivery O2 Flow Rate FiO2 06/23/21 16:14 98.3 79 19 211/86 (89) 98 Room Air 98.3 EKG: EKG: [] Radiology/Procedures: Radiology/Procedures: []PROCEDURE: FOOT RIGHT 3V EXAM: XR FOOT_RIGHT 3 VIEWS 06/23/2021 4:29 PM CLINICAL INDICATION: Chronic pain COMPARISON: None TECHNIQUE: 3 views of the right foot FINDINGS: Bones are diffusely mineralized. There is no displaced fracture. Alignment is normal. Joint spaces are maintained. There is a prominent plantar calcaneal enthesophyte. Moderate dorsal soft tissue swelling of the forefoot. IMPRESSION: No acute osseous abnormality. Moderate dorsal soft tissue swelling of the forefoot. Electronically signed by: Shannan Harrison MD (06/23/2021 5:11 PM) [id number] DICTATED and SIGNED BY: SHANNAN HARRISON MD DATE: 06/23/21 [id number] 0 Course & Med Decision Making: Course & Med Decision Making Pertinent Labs and Imaging studies reviewed. (See chart for details) This is a 86-year-old female patient presented to the ED today complaining of swelling and pain to the right foot for 3 to 4 years. Patient has been seen by photogrammetric compilation specialist as well as PCP for this. She was told she has bruising in the foot. Right foot x-rays done today interpreted by radiologist are negative for any acute findings, noted for swelling. Recommended elevation, recommended compression stockings. She requested something for pain. She is diabetic, prescription for gabapentin provided as well as diclofenac ointment. Encouraged to continue seeing the photogrammetric compilation specialist and PCP Lev Disclaimer: Lev Disclaimer: This electronic medical record was generated, in whole or in part, using a voice recognition dictation system. Departure Departure Impression: Primary Impression: Swelling of right foot Additional Impression: Foot pain, right Disposition: 01 HOME / SELF CARE / HOMELESS Condition: STABLE Referrals: TIANA MANZO MD (PCP) PARISH,LAY K DPM follow up next week Patient Instructions: Diabetes and Foot Care, Peripheral Edema Additional Instructions: You were evaluated for right foot pain and swelling. Your right foot x-rays are negative for any acute findings. Try to ice and elevate the foot. Wear compression stockings or Joaquin bandage to the foot Scripts Diclofenac Sodium (Voltaren Arthritis Pain) 20 Gm Gel..gram. 1 LETTY TP BID, #20 GM Prov: ZELDA ESPINOZA APRN 06/23/21 Gabapentin (GABAPENTIN ) 100 Mg Capsule 100 MG PO TID for NEUROGENIC PAIN, #21 CAP Prov: ZELDA ESPINOZA APRN 06/23/21 ZELDA ESPINOZA APRN Jun 23, 2021 17:40
== END 2021-06-23 18:24 | disposition home or self-care (01) ==
LOC: ER 14:59
DX: M79.671 Pain in right foot (principal); R22.41 Localized swelling, mass and lump, right lower limb; E11.9 Type 2 diabetes mellitus without complications; I10 Essential (primary) hypertension
CPT/HCPCS: 73630; 99283

== ENCOUNTER 2021-06-27 10:08 | Inpatient (IN) | payer MEDICARE ==
[~2021-06-27] VITALS: Ht 167.6 cm; Wt 90.5 kg
[~2021-06-27 10:08] MED LIST changes: +DICL20GE TP; +GABA-585 PO
--- NOTE | 2021-06-27 11:12 | PHYS DOC ---
Past Medical History Past Medical History: Arthritis, Diabetes-Type II, Gallstones, Hypertension, Other Additional Past Medical Histor: gall stones Past Surgical History: Cholecystectomy, Knee Replacement, Tubal ligation Additional Past Surgical Histo: Lt knee replacement Smoking Status: Never Smoker Alcohol Use: None Drug Use: None General Adult EDM: Chief Complaint: KNEE INJURY HPI: HPI: Patient is a 86 year old female with history of arthritis, diabetes type 2, hypertension, who presents to the ED today complaining of 8 out of 10 right knee pain, symptoms began on Friday after she fell. Patient denies any loss of consciousness. Reports pain is worse on weightbearing describing it as sharp and constant. She states she is currently unable to bear weight on the right lower extremity due to the knee pain. She states she feels she is going to fall. Review of Systems: Review of Systems: Constitutional: Denies fever or chills. [] Eyes: Denies change in visual acuity. [] HENT: Denies nasal congestion or sore throat. [] Respiratory: Denies cough or shortness of breath. [] Cardiovascular: Denies chest pain or edema. [] GI: Denies abdominal pain, nausea, vomiting, bloody stools or diarrhea. [] : Denies dysuria. [] Musculoskeletal: Reports right knee pain. Denies back pain Integument: Denies rash. [] Neurologic: Denies headache, focal weakness or sensory changes. [] Psychiatric: Denies depression or anxiety. [] Heart Score: C/O Chest Pain: N/A Risk Factors: Risk Factors: DM, Current or recent (<one month) smoker, HTN, HLP, family history of CAD, obesity. Risk Scores: Score 0 - 3: 2.5% MACE over next 6 weeks - Discharge Home Score 4 - 6: 20.3% MACE over next 6 weeks - Admit for Clinical Observation Score 7 - 10: 72.7% MACE over next 6 weeks - Early Invasive Strategies Allergies: Allergies: Allergies Coded Allergies Type Severity Reaction Last Updated Verified No Known Drug Allergies 06/27/21 No Physical Exam: PE: Constitutional: Well developed, well nourished, no acute distress, non-toxic appearance. [] HENT: Normocephalic, atraumatic, bilateral external ears normal, oropharynx moist, no oral exudates, nose normal. [] Eyes: PERRLA, EOMI, conjunctiva normal, no discharge. [] Neck: Normal range of motion, no tenderness, supple, no stridor. [] Cardiovascular:Heart rate regular rhythm, no murmur [] Lungs & Thorax: Bilateral breath sounds clear to auscultation [] Abdomen: Bowel sounds normal, soft, no tenderness, no masses, no pulsatile masses. [] Skin: Warm, dry, no erythema, no rash. [] Back: No tenderness, no CVA tenderness. [] Extremities: Overweight patient. No obvious deformity noted to bilateral lower extremities. Tenderness on palpation of the right knee, limited range of motion to the knee, +2 right pedal pulse. Cap refill less than 2 seconds the right lower extremity. Sensation intact to the right lower extremity. Neurologic: Alert and oriented X 3, normal motor function, normal sensory function, no focal deficits noted. [] Psychologic: Affect normal, judgement normal, mood normal. [] Current Patient Data: Vital Signs: Vital Signs Date Time Temp Pulse Resp B/P (MAP) Pulse Ox O2 Delivery O2 Flow Rate FiO2 06/27/21 10:15 98.5 82 24 179/75 (89) 96 Room Air 98.5 EKG: EKG: [] Radiology/Procedures: Radiology/Procedures: []PROCEDURE: KNEE RIGHT 4V XR KNEE 4 VIEWS WITH PATELLA_RT History: Reason: fall pain / Spl. Instructions: / History: Technique: 4 views right knee. Comparison: September 24, 2016 Findings: No dislocation. No acute fracture. Moderate to advanced medial compartment degenerative changes with joint space narrowing and marginal osteophyte format ion. Moderate patellofemoral compartment DJD with patellar spurring. No significant knee joint effusion. Vascular calcifications. Impression: 1. Moderate to advanced right knee DJD, similar compared to prior. Electronically signed by: Jorge Godinez DO (06/27/2021 12:17 PM) [id number] DICTATED and SIGNED BY: JORGE GODINEZ DO DATE: 06/27/21 [id number] 0 Course & Med Decision Making: Course & Med Decision Making Pertinent Labs and Imaging studies reviewed. (See chart for details) This is a 86-year-old female patient presented to the ED today with right knee pain after falling on Friday. Right knee x-rays interpreted by radiologist were noted for moderate to advanced right knee DJD, similar compared to prior. Patient states she is unable to ambulate due to pain in the right lower extremity. Will be admitted. Spoke to Dr. Monge who accepted patient for admission, routine consult placed for Ortho Lev Disclaimer: Lev Disclaimer: This electronic medical record was generated, in whole or in part, using a voice recognition dictation system. Departure Departure Impression: Primary Impression: Fall Qualified Codes: W19.XXXA - Unspecified fall, initial encounter Additional Impressions: Right knee pain Qualified Codes: M25.561 - Pain in right knee; G89.29 - Other chronic pain Right knee DJD Qualified Codes: M17.11 - Unilateral primary osteoarthritis, right knee Disposition: ADMITTED INPATIENT Condition: STABLE Referrals: TIANA MANZO MD (PCP) ZELDA ESPINOZA SAMPLE WORKER Jun 27, 2021 11:12
--- NOTE | 2021-06-27 12:20 | RAD ---
XR KNEE 4 VIEWS WITH PATELLA_RT History: Reason: fall pain / Spl. Instructions: / History: Technique: 4 views right knee. Comparison: September 24, 2016 Findings: No dislocation. No acute fracture. Moderate to advanced medial compartment degenerative changes with joint space narrowing and marginal osteophyte formation. Moderate patellofemoral compartment DJD with patellar spurring. No significant knee joint effusion. Vascular calcifications. Impression: 1. Moderate to advanced right knee DJD, similar compared to prior. Electronically signed by: Jorge Godinez DO (06/27/2021 12:17 PM) [id number]
[2021-06-27] MEDS ORDERED: MORPHINE SULFATE 2 MG/ML INJ. IVP PRN (13:00)
[2021-06-27] MEDS ORDERED: ONDANSETRON PF 4 MG/2 ML VIAL. IVP PRN ×2 (13:00→13:30)
[2021-06-27] MEDS ORDERED: DOCUSATE SODIUM 100 MG CAPSULE. PO PRN (13:30)
[2021-06-27] MEDS ORDERED: SENNOSIDES 8.6 MG TABLET PO PRN (13:30)
[2021-06-27] MEDS ORDERED: DEXTROSE 50% 25 GM / 50ML DISP.SYRIN. IV PRN ×2 (13:30→22:00)
[2021-06-27] MEDS ORDERED: PROCHLORPERAZINE 10 MG/2 ML VIAL. IV PRN (13:30)
[2021-06-27] MEDS ORDERED: ACETAMINOPHEN 325 MG TABLET. PO PRN (13:30)
[2021-06-27 13:39] LABS: BASO # 0.1 x10^3/uL (0.0-0.2); BASO % 1 % (0-3); EOS # 0.1 x10^3/uL (0.0-0.7); EOS % 1 % (0-3); HEMATOCRIT 35.1 % (36.0-47.0); HEMOGLOBIN 11.5 g/dL (12.0-15.5); LYMPH # 1.7 x10^3/uL (1.0-4.8); LYMPH % 16 % (24-48); MEAN CORPUSCULAR HEMOGLOBIN 30 pg (25-35); MEAN CORPUSCULAR HGB CONC 33 g/dL (31-37); MEAN CORPUSCULAR VOLUME 90 fL (79-100); MONO # 0.9 x10^3/uL (0.0-1.1); MONO % 8 % (0-9); NEUT % 75 % (31-73); PLATELET COUNT 270 x10^3/uL (140-400); RED BLOOD COUNT 3.92 x10^6/uL (3.50-5.40); RED CELL DISTRIBUTION WIDTH 14.1 % (11.5-14.5); WHITE BLOOD COUNT 10.7 x10^3/uL (4.0-11.0)
[2021-06-27 13:57] LABS: CALCIUM 9.5 mg/dL (8.5-10.1); CREATININE 1.2 mg/dL (0.6-1.0); GFR 42.8; POTASSIUM 4.5 mmol/L (3.5-5.1)
[2021-06-27 14:03] LABS: ALBUMIN 3.3 g/dL (3.4-5.0); ALBUMIN/GLOBULIN RATIO 0.8 (1.0-1.7); MAGNESIUM 2.2 mg/dL (1.8-2.4); PHOSPHORUS 2.3 mg/dL (2.6-4.7); TOTAL BILIRUBIN 0.3 mg/dL (0.2-1.0); TOTAL PROTEIN 7.3 g/dL (6.4-8.2)
[2021-06-27 19:00] VITALS: BP 199/59
--- NOTE | 2021-06-27 22:07 | PDOC1 ---
History and Physical Date of Service: DOS: DATE: 06/27/21 TIME: 21:59 Chief Complaint: Chief Complain: Weakness and mechanical fall History of Present Illness: HPI: 86-year-old female with past medical history of diabetes mellitus type 2, hypertension, arthritis who who comes into the ED with her son after a fall and falling on her right knee. Apparently she was at home walking up the ramp with her walker when she tripped on the door trim and she tried to catch her balance but her knees gave out first and she landed on her right knee while trying to hold herself up with a walker. Denies any loss of consciousness or head trauma. She currently complains of 8 out of 10 right knee pain and weakness. ED physician attempted to stand her up with a walker but she describes that the pain is sharp and constant and is she is unable to bear weight on the right lower extremity. She feels like she is going to fall and therefore she will be admitted to the hospital service for further management. It was expressed to the son and the patient that likely the patient will need to have physical therapy evaluate and possibly needs some further training with rehabilitation before going home. Patient currently denies any chest pain, shortness of breath, abdominal pain, diarrhea or bloody stools. No syncope or lightheadedness or vertigo. Past Medical/Surgical History: PMH/PSH: Past Medical History: Arthritis, Diabetes-Type II, Gallstones, Hypertension, Past Surgical History: Cholecystectomy, Knee Replacement, Tubal ligation, Lt knee replacement Allergies: Allergies: Coded Allergies: No Known Drug Allergies (Unverified , 06/27/21) Family History: Family History: Reviewed with no relevant findings Social History: Social History: Smoking Status: Never Smoker Alcohol Use: None Drug Use: None Current Medications: Current Medications Current Medications Ondansetron HCl (Zofran) 4 mg PRN Q8HRS PRN IVP NAUSEA/VOMITING; Start 06/27/21 at 13:00; Stop 06/27/21 at 13:29; Status DC Morphine Sulfate (Morphine Sulfate) 2 mg PRN Q2HR PRN IVP PAIN; Start 06/27/21 at 13:00; Stop 06/28/21 at 12:59 Sennosides (Senna) 17.2 mg PRN BID PRN PO CONSTIPATION; Start 06/27/21 at 13:30 Docusate Sodium (Colace) 100 mg PRN DAILY PRN PO HARD STOOLS; Start 06/27/21 at 13:30 Ondansetron HCl (Zofran) 4 mg PRN Q6HRS PRN IVP NAUSEA/VOMITING, 1st CHOICE; Start 06/27/21 at 13:30 Dextrose (Dextrose 50%-Water Syringe) 12.5 gm PRN Q15MIN PRN IV SEE COMMENTS; Start 06/27/21 at 13:30 Acetaminophen (Tylenol) 650 mg PRN Q4HRS PRN PO TEMP OVER 100.4F OR MILD PAIN; Start 06/27/21 at 13:30 Prochlorperazine Edisylate (Compazine) 10 mg PRN Q6HRS PRN IV NAUSEA/VOMITING, 2nd CHOICE; Start 06/27/21 at 13:30 Carvedilol (Coreg) 12.5 mg BIDWMEALS PO ; Start 06/28/21 at 08:00 Lisinopril (Prinivil) 10 mg DAILY PO ; Start 06/28/21 at 09:00 Metformin HCl (Glucophage) 500 mg BIDWMEALS PO ; Start 06/28/21 at 08:00 Active Scripts Active Voltaren Arthritis Pain (Diclofenac Sodium) 20 Gm Gel..gram. 1 Jay TP BID Gabapentin (Gabapentin) 100 Mg Capsule 100 Mg PO TID Lisinopril 10 Mg Tablet 10 Mg PO DAILY 90 Days Carvedilol (Carvedilol) 12.5 Mg Tablet 12.5 Mg PO BIDWMEALS Atorvastatin Calcium 20 Mg Tablet 20 Mg PO QHS 90 Days Cefdinir 300 Mg Capsule 300 Mg PO BID 5 Days Elgin 5-325 Tablet (Acetaminophen/Hydrocodone Bitart) 1 Each Tablet 1 Tab PO PRN Q6HRS PRN Reported Oxybutynin Chloride 5 Mg Tablet 1 Tab PO DAILY Aspirin 325 Mg Tablet 1 Tab PO DAILY Amlodipine Besylate 5 Mg Tablet 5 Mg PO BID Humalog (Insulin Lispro) 100 Unit/1 Ml Vial 0 SQ SSI Lantus Solostar (Insulin Glargine,Hum.rec.anlog) 100 Unit/1 Ml Insuln.pen 12 Unit SQ QHS Metformin Hcl 500 Mg Tablet 500 Mg PO BIDWMEALS ROS: Review of Systems Review of System REVIEW OF SYSTEMS: GENERAL: Denies weakness SKIN: No bruising, hair changes or rashes. EYES: No blurred, double or loss of vision. NOSE AND THROAT: No history of nosebleeds, hoarseness or sore throat. HEART: No history of palpitations, chest pain or shortness of breath on exertion. LUNGS: Denies cough, hemoptysis, wheezing or shortness of breath. GASTROINTESTINAL: Denies changes in appetite, nausea, vomiting, diarrhea or constipation. GENITOURINARY: No history of frequency, urgency, hesitancy or nocturia. NEUROLOGIC: Denies history of numbness, tingling, or tremor. PSYCHIATRIC: No history of panic, anxiety or depression. ENDOCRINE: No history of heat or cold intolerance, polyuria or polydipsia. EXTREMITIES: Weakness in the lower extremities. Right knee pain Physical Exam: Vital Signs: Vital Signs Date Time Temp Pulse Resp B/P (MAP) Pulse Ox O2 Delivery O2 Flow Rate FiO2 06/27/21 19:00 97.6 75 16 199/59 (105) 98 Room Air 97.6 Physcial Exam: GEN: No apparent distress. Alert and oriented HEENT: Normal cephalic, atraumatic, external auditory canals are patent EYES: Extraocular muscles are intact, pupil are equally round and reactive to light and accommodation MUSCULOSKELETAL: Well developed , well nourished, good range of motion ENDOCRINE: No thyromegaly was palpated LYMPHATICS: No cervical chain or axillary nodes were noted HEMATOPOIETIC: No bruising NECK: Supple, no JVD, no thyromegaly was noted LUNGS: Clear to auscultation in all lung funez without rhonchi or wheezing HEART: RRR, S!, S2 present. Peripheral pulses intact, no obvious murmurs noted ABDOMEN: Soft, nontender. Positive bowel sounds, no organomegaly, normal bowel sounds EXTREMITIES: Without clubbing, cyanosis, or edema. Pedal pulses intact. Negative Homans sign. Right knee is slightly bent at a 10 degree angle. She is unable to elevate her extremities against gravity. There is pain during flexion of her right knee. Left knee there is a surgical incision for total knee replacement and that incision has healed well. No signs of obvious deformity. No pedal edema. NEUROLOGIC: Normal speech and tone. A&O x 3, moves all extremities, no obvious focal deficits PSYCHIATRIC: Normal affect, normal mood. Stable SKIN: No ulcerations or rashes, good skin turgor, no jaundice VASCULAR: Good capillary refill, neurovascular bundle appears to be intact Labs: Labs: Laboratory Tests Test 06/27/21 13:30 06/27/21 20:57 White Blood Count 10.7 x10^3/uL (4.0-11.0) Red Blood Count 3.92 x10^6/uL (3.50-5.40) Hemoglobin 11.5 g/dL (12.0-15.5) Hematocrit 35.1 % (36.0-47.0) Mean Corpuscular Volume 90 fL (79-100) Mean Corpuscular Hemoglobin 30 pg (25-35) Mean Corpuscular Hemoglobin Concent 33 g/dL (31-37) Red Cell Distribution Width 14.1 % (11.5-14.5) Platelet Count 270 x10^3/uL (140-400) Neutrophils (%) (Auto) 75 % (31-73) Lymphocytes (%) (Auto) 16 % (24-48) Monocytes (%) (Auto) 8 % (0-9) Eosinophils (%) (Auto) 1 % (0-3) Basophils (%) (Auto) 1 % (0-3) Neutrophils # (Auto) 8.0 x10^3/uL (1.8-7.7) Lymphocytes # (Auto) 1.7 x10^3/uL (1.0-4.8) Monocytes # (Auto) 0.9 x10^3/uL (0.0-1.1) Eosinophils # (Auto) 0.1 x10^3/uL (0.0-0.7) Basophils # (Auto) 0.1 x10^3/uL (0.0-0.2) Sodium Level 137 mmol/L (136-145) Potassium Level 4.5 mmol/L (3.5-5.1) Chloride Level 102 mmol/L (98-107) Carbon Dioxide Level 26 mmol/L (21-32) Anion Gap 9 (6-14) Blood Urea Nitrogen 36 mg/dL (7-20) Creatinine 1.2 mg/dL (0.6-1.0) Estimated GFR (Cockcroft-Gault) 42.8 BUN/Creatinine Ratio 30 (6-20) Glucose Level 125 mg/dL (70-99) Calcium Level 9.5 mg/dL (8.5-10.1) Phosphorus Level 2.3 mg/dL (2.6-4.7) Magnesium Level 2.2 mg/dL (1.8-2.4) Total Bilirubin 0.3 mg/dL (0.2-1.0) Aspartate Amino Transf (AST/SGOT) 11 U/L (15-37) Alanine Aminotransferase (ALT/SGPT) 17 U/L (14-59) Alkaline Phosphatase 96 U/L (46-116) Total Protein 7.3 g/dL (6.4-8.2) Albumin 3.3 g/dL (3.4-5.0) Albumin/Globulin Ratio 0.8 (1.0-1.7) Vitamin B12 Level 284 pg/mL (247-911) SARS-CoV-2 Antigen (Rapid) Negative (NEGATIVE) Glucose (Fingerstick) 215 mg/dL (70-99) Laboratory Tests Test 06/27/21 13:30 06/27/21 20:57 White Blood Count 10.7 x10^3/uL (4.0-11.0) Red Blood Count 3.92 x10^6/uL (3.50-5.40) Hemoglobin 11.5 g/dL (12.0-15.5) Hematocrit 35.1 % (36.0-47.0) Mean Corpuscular Volume 90 fL (79-100) Mean Corpuscular Hemoglobin 30 pg (25-35) Mean Corpuscular Hemoglobin Concent 33 g/dL (31-37) Red Cell Distribution Width 14.1 % (11.5-14.5) Platelet Count 270 x10^3/uL (140-400) Neutrophils (%) (Auto) 75 % (31-73) Lymphocytes (%) (Auto) 16 % (24-48) Monocytes (%) (Auto) 8 % (0-9) Eosinophils (%) (Auto) 1 % (0-3) Basophils (%) (Auto) 1 % (0-3) Neutrophils # (Auto) 8.0 x10^3/uL (1.8-7.7) Lymphocytes # (Auto) 1.7 x10^3/uL (1.0-4.8) Monocytes # (Auto) 0.9 x10^3/uL (0.0-1.1) Eosinophils # (Auto) 0.1 x10^3/uL (0.0-0.7) Basophils # (Auto) 0.1 x10^3/uL (0.0-0.2) Sodium Level 137 mmol/L (136-145) Potassium Level 4.5 mmol/L (3.5-5.1) Chloride Level 102 mmol/L (98-107) Carbon Dioxide Level 26 mmol/L (21-32) Anion Gap 9 (6-14) Blood Urea Nitrogen 36 mg/dL (7-20) Creatinine 1.2 mg/dL (0.6-1.0) Estimated GFR (Cockcroft-Gault) 42.8 BUN/Creatinine Ratio 30 (6-20) Glucose Level 125 mg/dL (70-99) Calcium Level 9.5 mg/dL (8.5-10.1) Phosphorus Level 2.3 mg/dL (2.6-4.7) Magnesium Level 2.2 mg/dL (1.8-2.4) Total Bilirubin 0.3 mg/dL (0.2-1.0) Aspartate Amino Transf (AST/SGOT) 11 U/L (15-37) Alanine Aminotransferase (ALT/SGPT) 17 U/L (14-59) Alkaline Phosphatase 96 U/L (46-116) Total Protein 7.3 g/dL (6.4-8.2) Albumin 3.3 g/dL (3.4-5.0) Albumin/Globulin Ratio 0.8 (1.0-1.7) Vitamin B12 Level 284 pg/mL (247-911) SARS-CoV-2 Antigen (Rapid) Negative (NEGATIVE) Glucose (Fingerstick) 215 mg/dL (70-99) Images: Images PROCEDURE: KNEE RIGHT 4V XR KNEE 4 VIEWS WITH PATELLA_RT History: Reason: fall pain / Spl. Instructions: / History: Technique: 4 views right knee. Comparison: September 24, 2016 Findings: No dislocation. No acute fracture. Moderate to advanced medial compartment degenerative changes with joint space narrowing and marginal osteophyte formation. Moderate patellofemoral compartment DJD with patellar spurring. No significant knee joint effusion. Vascular calcifications. Impression: 1. Moderate to advanced right knee DJD, similar compared to prior. Assessment/Plan Assessment/Plan Mechanical fall PRASHANT due to vasomotor nephropathy Severe degenerative joint disease History of severe osteoarthritis History of diabetes mellitus type 2 History of hypertension Obesity class I Moderate protein malnutrition Borderline B12 deficiency Admit to hospital service for further management Fall precautions Orthopedic consult Dr. Saunders PMR consult for possible steroid injection PT OT evaluation Orthostatic vital sign Continue IV fluids Lovenox for DVT prophylaxis ADA diet Full code Discussed with RN and SW Disposition inpatient management as above Surrogate decision maker is son Justifications for Admission Other Justification Multiple falls and weakness VANESSA RAMOS MD Jun 27, 2021 22:07
[2021-06-27 22:48] VITALS: BP 197/71
[2021-06-27] MEDS: CARVEDILOL 12.5 MG TABLET. PO SCH (23:25)
[2021-06-27] MEDS: LISINOPRIL 10 MG TABLET PO SCH (23:25)
[2021-06-28 00:04] LABS: BARBITURATES NEG (NEG); BENZODIAZEPINES NEG (NEG); CANNABINOIDS NEG (NEG); COCAINE NEG (NEG); METHADONE NEG (NEG); OPIATES NEG (NEG); PHENCYCLIDINE NEG (NEG)
[2021-06-28 00:07] LABS: AMPHETAMINE/METHAMPHETAMINE NEG (NEG)
[2021-06-28 02:56] VITALS: BP 130/42
[2021-06-28 04:59] LABS: BASO # 0.1 x10^3/uL (0.0-0.2); BASO % 1 % (0-3); EOS # 0.2 x10^3/uL (0.0-0.7); EOS % 2 % (0-3); HEMATOCRIT 32.4 % (36.0-47.0); HEMOGLOBIN 10.5 g/dL (12.0-15.5); LYMPH # 1.7 x10^3/uL (1.0-4.8); LYMPH % 19 % (24-48); MEAN CORPUSCULAR HEMOGLOBIN 30 pg (25-35); MEAN CORPUSCULAR HGB CONC 32 g/dL (31-37); MEAN CORPUSCULAR VOLUME 91 fL (79-100); MONO % 11 % (0-9); NEUT % 68 % (31-73); PLATELET COUNT 244 x10^3/uL (140-400); RED BLOOD COUNT 3.56 x10^6/uL (3.50-5.40); RED CELL DISTRIBUTION WIDTH 14.5 % (11.5-14.5)
[2021-06-28 05:44] LABS: ALBUMIN 2.8 g/dL (3.4-5.0); ALBUMIN/GLOBULIN RATIO 0.8 (1.0-1.7); CALCIUM 8.4 mg/dL (8.5-10.1); CREATININE 1.3 mg/dL (0.6-1.0); POTASSIUM 4.6 mmol/L (3.5-5.1); TOTAL BILIRUBIN 0.3 mg/dL (0.2-1.0); TOTAL PROTEIN 6.1 g/dL (6.4-8.2)
[2021-06-28 05:46] LABS: MAGNESIUM 2.2 mg/dL (1.8-2.4); PHOSPHORUS 3.9 mg/dL (2.6-4.7)
[2021-06-28 06:16] VITALS: BP 157/54
--- NOTE | 2021-06-28 06:22 | CONS ---
DATE OF CONSULTATION: 06/27/2021 ORTHOPEDIC CONSULTATION CHIEF COMPLAINT: Right knee stiffness. HISTORY OF PRESENT ILLNESS: The patient is an 86-year-old female with preexisting arthritis in both knees and left total knee replacement; otherwise doing well, who has had ongoing right knee pain, but much more severe and currently does not have any pain. Resting in bed, but she states that her right knee is very stiff after a fall on Friday of this week. She denies any hitting her head or other injury, no loss of consciousness, and she was admitted for difficulty bearing weight on the right lower extremity. PAST MEDICAL HISTORY: Significant for type 2 diabetes, arthritis, hypertension, gallstones. PAST SURGICAL HISTORY: Cholecystectomy, left total knee arthroplasty and tubal ligation. SOCIAL HISTORY: Denies smoking, alcohol or drug use. ALLERGIES: She has no known drug allergies. MEDICATIONS: List is reviewed. FAMILY HISTORY: Noncontributory. REVIEW OF SYSTEMS: Again, negative for any loss of consciousness, upper extremity pain, focal weakness, numbness, tingling, chest pain, shortness of breath. She does have right knee stiffness. PHYSICAL EXAMINATION: GENERAL: Pleasant, cooperative 86-year-old female, alert and oriented, no acute distress. HEENT: Atraumatic, normocephalic. EXTREMITIES: Examination of upper extremities reveals shoulder, elbow and wrist motion bilaterally with good rotator cuff strength. No instability of her joints. On examination of the lower extremities, she has a well-healed midline incision from left total knee arthroplasty that has good stability. Right knee is tender over the joint lines, more so medially than lateral. She does have some patellofemoral crepitus and limited knee flexion with mild effusion. Tenderness on flexion beyond about 75-80 degrees. She does have some mild discomfort with full extension. Ligaments are stable. Normal alignment and stability of bilateral hips and ankles. RADIOGRAPHIC DATA: X-rays show tricompartmental degenerative changes of the right knee without evidence of fracture. This was confirmed on radiology report. IMPRESSION: Right knee contusion and stiffness with pain on weightbearing. TREATMENT PLAN: I went over with her that there are no structural concerns of fracture or instability. I am going to have physical therapy, get her up and around and see how she responds. If she is having more pain or symptoms, we could consider corticosteroid injection as she received one, she thinks last about a year ago. No need for any surgical orthopedic intervention. RD/DOMI/CLAUS DR: Eduardo TID: [id number]
[2021-06-28] MEDS: CYANOCOBALAMIN (VITAMIN B-12) 1,000 MCG TABLET. PO SCH (08:32)
[2021-06-28] MEDS: metFORMIN 500 MG TABLET PO SCH ×2 (08:32→17:00)
[2021-06-28] MEDS: CARVEDILOL 12.5 MG TABLET. PO SCH ×2 (08:32→17:26)
[2021-06-28] MEDS: LISINOPRIL 10 MG TABLET PO SCH (08:32)
[2021-06-28] MEDS: INSULIN LISPRO 300 UNITS/3 ML VIAL. SQ SCH ×3 (08:37→17:00)
[2021-06-28] MEDS ORDERED: methylPREDNISolone ACETATE 40 MG/ML VIAL. IM ONE (09:45)
[2021-06-28] MEDS ORDERED: BUPIVACAINE MPF 0.25% 10 ML VIAL. IJ ONE (09:45)
--- NOTE | 2021-06-28 10:43 | NUR ---
SW following. Discussed with RN, pt from home with son and daughter, room air, cardiac diet, rapid COVID-19 negative. PT/OT ordered. Dr. Saunders and Sonia following. RN advised no SW needs at this time. SW will continue to follow.
[2021-06-28 11:00] VITALS: BP 124/45
--- NOTE | 2021-06-28 14:08 | PDOC ---
[employer] PROGRESS NOTE Date of Service DOS: DATE: 06/28/21 TIME: 14:02 Chief Complaint Chief Complaint Weakness, fall History of Present Illness History of Present Illness 86-year-old female with past medical history of diabetes mellitus type 2, hypertension, arthritis who who comes into the ED with her son after a fall and falling on her right knee. Apparently she was at home walking up the ramp with her walker when she tripped on the door trim and she tried to catch her balance but her knees gave out first and she landed on her right knee while trying to hold herself up with a walker. Denies any loss of consciousness or head trauma. She currently complains of 8 out of 10 right knee pain and weakness. ED physician attempted to stand her up with a walker but she describes that the pain is sharp and constant and is she is unable to bear weight on the right lower extremity. She feels like she is going to fall and therefore she will be admitted to the hospital service for further management. It was expressed to the son and the patient that likely the patient will need to have physical therapy evaluate and possibly needs some further training with rehabilitation before going home. Patient currently denies any chest pain, shortness of breath, abdominal pain, diarrhea or bloody stools. No syncope or lightheadedness or vertigo. 06/28/21 Patient seen and examined at bedside. Still having some pain. Has been evaluated by Ortho PMR. Refused steroid injection this morning. PT OT evaluation. Likely going to need rehab or SNF placement. Discharge ready at any time for those. Vitals/I&O Vitals/I&O: Vital Signs Date Time Temp Pulse Resp B/P (MAP) Pulse Ox O2 Delivery O2 Flow Rate FiO2 06/28/21 11:00 98.2 51 18 124/45 (71) 97 Room Air 98.2 I & O 06/27/21 06/27/21 06/28/21 15:00 23:00 07:00 Intake Total 200 ml 240 ml Balance 200 ml 240 ml Physical Exam General: Alert, Oriented X3, Cooperative Heart: Regular rate, Normal S1, Normal S2 Lungs: Clear, Other Abdomen: Normal bowel sounds, Soft Extremities: Other (Range of motion limited by pain.) Labs Labs: Laboratory Tests Test 06/27/21 20:57 06/27/21 23:50 06/28/21 03:55 06/28/21 07:31 Glucose (Fingerstick) 215 mg/dL (70-99) 191 mg/dL (70-99) Urine Opiates Screen Neg (NEG) Urine Methadone Screen Neg (NEG) Urine Barbiturates Neg (NEG) Urine Phencyclidine Screen Neg (NEG) Urine Amphetamine/Methamphetamine Neg (NEG) Urine Benzodiazepines Screen Neg (NEG) Urine Cocaine Screen Neg (NEG) Urine Cannabinoids Screen Neg (NEG) Urine Ethyl Alcohol Neg (NEG) White Blood Count 9.0 x10^3/uL (4.0-11.0) Red Blood Count 3.56 x10^6/uL (3.50-5.40) Hemoglobin 10.5 g/dL (12.0-15.5) Hematocrit 32.4 % (36.0-47.0) Mean Corpuscular Volume 91 fL (79-100) Mean Corpuscular Hemoglobin 30 pg (25-35) Mean Corpuscular Hemoglobin Concent 32 g/dL (31-37) Red Cell Distribution Width 14.5 % (11.5-14.5) Platelet Count 244 x10^3/uL (140-400) Neutrophils (%) (Auto) 68 % (31-73) Lymphocytes (%) (Auto) 19 % (24-48) Monocytes (%) (Auto) 11 % (0-9) Eosinophils (%) (Auto) 2 % (0-3) Basophils (%) (Auto) 1 % (0-3) Neutrophils # (Auto) 6.0 x10^3/uL (1.8-7.7) Lymphocytes # (Auto) 1.7 x10^3/uL (1.0-4.8) Monocytes # (Auto) 1.0 x10^3/uL (0.0-1.1) Eosinophils # (Auto) 0.2 x10^3/uL (0.0-0.7) Basophils # (Auto) 0.1 x10^3/uL (0.0-0.2) Sodium Level 138 mmol/L (136-145) Potassium Level 4.6 mmol/L (3.5-5.1) Chloride Level 106 mmol/L (98-107) Carbon Dioxide Level 24 mmol/L (21-32) Anion Gap 8 (6-14) Blood Urea Nitrogen 36 mg/dL (7-20) Creatinine 1.3 mg/dL (0.6-1.0) Estimated GFR (Cockcroft-Gault) 39.0 BUN/Creatinine Ratio 28 (6-20) Glucose Level 164 mg/dL (70-99) Calcium Level 8.4 mg/dL (8.5-10.1) Phosphorus Level 3.9 mg/dL (2.6-4.7) Magnesium Level 2.2 mg/dL (1.8-2.4) Total Bilirubin 0.3 mg/dL (0.2-1.0) Aspartate Amino Transf (AST/SGOT) 11 U/L (15-37) Alanine Aminotransferase (ALT/SGPT) 13 U/L (14-59) Alkaline Phosphatase 84 U/L (46-116) Total Protein 6.1 g/dL (6.4-8.2) Albumin 2.8 g/dL (3.4-5.0) Albumin/Globulin Ratio 0.8 (1.0-1.7) Test 06/28/21 10:52 Glucose (Fingerstick) 170 mg/dL (70-99) Assessment and Plan Assessmemt and Plan Problems Medical Problems: (1) Fall Status: Acute (2) Right knee DJD Status: Acute (3) Right knee pain Status: Acute Assessment/Plan Mechanical fall PRASHANT due to vasomotor nephropathy Severe degenerative joint disease History of severe osteoarthritis History of diabetes mellitus type 2 History of hypertension Obesity class I Moderate protein malnutrition Borderline B12 deficiency Admit to hospital service for further management Fall precautions Orthopedic consult Dr. Saunders PMR consult for possible steroid injection --> patient declined PT OT evaluation Home meds resumed Lovenox for DVT prophylaxis ADA diet Full code Discussed with RN and SW Disposition inpatient management as above Surrogate decision maker is son Comment Review of Relevant I have reviewed the following items noam (where applicable) has been applied. Medications: Current Medications Medications (Trade) Dose Ordered Sig/[place] Route PRN Reason Start Time Stop Time Status Last Admin Dose Admin Carvedilol (Coreg) 12.5 mg BIDWMEALS PO 06/28/21 00:00 06/28/21 08:32 Lisinopril (Prinivil) 10 mg DAILY PO 06/28/21 00:00 06/28/21 08:32 Metformin HCl (Glucophage) 500 mg BIDWMEALS PO 06/28/21 08:00 06/28/21 08:32 Insulin Human Lispro (HumaLOG) 0-7 UNITS TIDWMEALS SQ 06/28/21 08:00 06/28/21 11:45 Cyanocobalamin (Vitamin B-12) 1,000 mcg DAILY PO 06/28/21 09:00 06/28/21 08:32 Justifications for Admission Other Justification Multiple falls and weakness MAN PATINO MD Jun 28, 2021 14:08
[2021-06-28 15:00] VITALS: BP 130/59
--- NOTE | 2021-06-28 16:45 | PDOC ---
PROGRESS NOTES Date of Service DATE: 06/28/21 TIME: 16:43 Subjective Subjective Problems overnight: Reports that her knee does not hurt either on rest or getting up and around. Mainly just a bit stiff Objective Vital Signs Vital Signs Date Time Temp Pulse Resp B/P (MAP) Pulse Ox O2 Delivery O2 Flow Rate FiO2 06/28/21 15:00 98.1 56 18 130/59 (82) 99 Room Air 98.1 Physical Exam Right knee is very limited in terminal flexion but does achieve full extension as long as she extends slowly ligaments are stable Labs Laboratory Tests Test 06/27/21 13:20 06/27/21 13:30 06/27/21 20:57 06/27/21 23:50 SARS-CoV-2 RNA (DIONNE) Negative (Negative) White Blood Count 10.7 x10^3/uL (4.0-11.0) Red Blood Count 3.92 x10^6/uL (3.50-5.40) Hemoglobin 11.5 g/dL (12.0-15.5) Hematocrit 35.1 % (36.0-47.0) Mean Corpuscular Volume 90 fL (79-100) Mean Corpuscular Hemoglobin 30 pg (25-35) Mean Corpuscular Hemoglobin Concent 33 g/dL (31-37) Red Cell Distribution Width 14.1 % (11.5-14.5) Platelet Count 270 x10^3/uL (140-400) Neutrophils (%) (Auto) 75 % (31-73) Lymphocytes (%) (Auto) 16 % (24-48) Monocytes (%) (Auto) 8 % (0-9) Eosinophils (%) (Auto) 1 % (0-3) Basophils (%) (Auto) 1 % (0-3) Neutrophils # (Auto) 8.0 x10^3/uL (1.8-7.7) Lymphocytes # (Auto) 1.7 x10^3/uL (1.0-4.8) Monocytes # (Auto) 0.9 x10^3/uL (0.0-1.1) Eosinophils # (Auto) 0.1 x10^3/uL (0.0-0.7) Basophils # (Auto) 0.1 x10^3/uL (0.0-0.2) Sodium Level 137 mmol/L (136-145) Potassium Level 4.5 mmol/L (3.5-5.1) Chloride Level 102 mmol/L (98-107) Carbon Dioxide Level 26 mmol/L (21-32) Anion Gap 9 (6-14) Blood Urea Nitrogen 36 mg/dL (7-20) Creatinine 1.2 mg/dL (0.6-1.0) Estimated GFR (Cockcroft-Gault) 42.8 BUN/Creatinine Ratio 30 (6-20) Glucose Level 125 mg/dL (70-99) Calcium Level 9.5 mg/dL (8.5-10.1) Phosphorus Level 2.3 mg/dL (2.6-4.7) Magnesium Level 2.2 mg/dL (1.8-2.4) Total Bilirubin 0.3 mg/dL (0.2-1.0) Aspartate Amino Transf (AST/SGOT) 11 U/L (15-37) Alanine Aminotransferase (ALT/SGPT) 17 U/L (14-59) Alkaline Phosphatase 96 U/L (46-116) Total Protein 7.3 g/dL (6.4-8.2) Albumin 3.3 g/dL (3.4-5.0) Albumin/Globulin Ratio 0.8 (1.0-1.7) Vitamin B12 Level 284 pg/mL (247-911) 25-Hydroxy Vitamin D Total 8.1 ng/mL (30-100) SARS-CoV-2 Antigen (Rapid) Negative (NEGATIVE) Glucose (Fingerstick) 215 mg/dL (70-99) Urine Opiates Screen Neg (NEG) Urine Methadone Screen Neg (NEG) Urine Barbiturates Neg (NEG) Urine Phencyclidine Screen Neg (NEG) Urine Amphetamine/Methamphetamine Neg (NEG) Urine Benzodiazepines Screen Neg (NEG) Urine Cocaine Screen Neg (NEG) Urine Cannabinoids Screen Neg (NEG) Urine Ethyl Alcohol Neg (NEG) Test 06/28/21 03:55 06/28/21 07:31 06/28/21 10:52 White Blood Count 9.0 x10^3/uL (4.0-11.0) Red Blood Count 3.56 x10^6/uL (3.50-5.40) Hemoglobin 10.5 g/dL (12.0-15.5) Hematocrit 32.4 % (36.0-47.0) Mean Corpuscular Volume 91 fL (79-100) Mean Corpuscular Hemoglobin 30 pg (25-35) Mean Corpuscular Hemoglobin Concent 32 g/dL (31-37) Red Cell Distribution Width 14.5 % (11.5-14.5) Platelet Count 244 x10^3/uL (140-400) Neutrophils (%) (Auto) 68 % (31-73) Lymphocytes (%) (Auto) 19 % (24-48) Monocytes (%) (Auto) 11 % (0-9) Eosinophils (%) (Auto) 2 % (0-3) Basophils (%) (Auto) 1 % (0-3) Neutrophils # (Auto) 6.0 x10^3/uL (1.8-7.7) Lymphocytes # (Auto) 1.7 x10^3/uL (1.0-4.8) Monocytes # (Auto) 1.0 x10^3/uL (0.0-1.1) Eosinophils # (Auto) 0.2 x10^3/uL (0.0-0.7) Basophils # (Auto) 0.1 x10^3/uL (0.0-0.2) Sodium Level 138 mmol/L (136-145) Potassium Level 4.6 mmol/L (3.5-5.1) Chloride Level 106 mmol/L (98-107) Carbon Dioxide Level 24 mmol/L (21-32) Anion Gap 8 (6-14) Blood Urea Nitrogen 36 mg/dL (7-20) Creatinine 1.3 mg/dL (0.6-1.0) Estimated GFR (Cockcroft-Gault) 39.0 BUN/Creatinine Ratio 28 (6-20) Glucose Level 164 mg/dL (70-99) Calcium Level 8.4 mg/dL (8.5-10.1) Phosphorus Level 3.9 mg/dL (2.6-4.7) Magnesium Level 2.2 mg/dL (1.8-2.4) Total Bilirubin 0.3 mg/dL (0.2-1.0) Aspartate Amino Transf (AST/SGOT) 11 U/L (15-37) Alanine Aminotransferase (ALT/SGPT) 13 U/L (14-59) Alkaline Phosphatase 84 U/L (46-116) Total Protein 6.1 g/dL (6.4-8.2) Albumin 2.8 g/dL (3.4-5.0) Albumin/Globulin Ratio 0.8 (1.0-1.7) Glucose (Fingerstick) 191 mg/dL (70-99) 170 mg/dL (70-99) Laboratory Tests Test 06/27/21 20:57 06/27/21 23:50 06/28/21 03:55 06/28/21 07:31 Glucose (Fingerstick) 215 mg/dL (70-99) 191 mg/dL (70-99) Urine Opiates Screen Neg (NEG) Urine Methadone Screen Neg (NEG) Urine Barbiturates Neg (NEG) Urine Phencyclidine Screen Neg (NEG) Urine Amphetamine/Methamphetamine Neg (NEG) Urine Benzodiazepines Screen Neg (NEG) Urine Cocaine Screen Neg (NEG) Urine Cannabinoids Screen Neg (NEG) Urine Ethyl Alcohol Neg (NEG) White Blood Count 9.0 x10^3/uL (4.0-11.0) Red Blood Count 3.56 x10^6/uL (3.50-5.40) Hemoglobin 10.5 g/dL (12.0-15.5) Hematocrit 32.4 % (36.0-47.0) Mean Corpuscular Volume 91 fL (79-100) Mean Corpuscular Hemoglobin 30 pg (25-35) Mean Corpuscular Hemoglobin Concent 32 g/dL (31-37) Red Cell Distribution Width 14.5 % (11.5-14.5) Platelet Count 244 x10^3/uL (140-400) Neutrophils (%) (Auto) 68 % (31-73) Lymphocytes (%) (Auto) 19 % (24-48) Monocytes (%) (Auto) 11 % (0-9) Eosinophils (%) (Auto) 2 % (0-3) Basophils (%) (Auto) 1 % (0-3) Neutrophils # (Auto) 6.0 x10^3/uL (1.8-7.7) Lymphocytes # (Auto) 1.7 x10^3/uL (1.0-4.8) Monocytes # (Auto) 1.0 x10^3/uL (0.0-1.1) Eosinophils # (Auto) 0.2 x10^3/uL (0.0-0.7) Basophils # (Auto) 0.1 x10^3/uL (0.0-0.2) Sodium Level 138 mmol/L (136-145) Potassium Level 4.6 mmol/L (3.5-5.1) Chloride Level 106 mmol/L (98-107) Carbon Dioxide Level 24 mmol/L (21-32) Anion Gap 8 (6-14) Blood Urea Nitrogen 36 mg/dL (7-20) Creatinine 1.3 mg/dL (0.6-1.0) Estimated GFR (Cockcroft-Gault) 39.0 BUN/Creatinine Ratio 28 (6-20) Glucose Level 164 mg/dL (70-99) Calcium Level 8.4 mg/dL (8.5-10.1) Phosphorus Level 3.9 mg/dL (2.6-4.7) Magnesium Level 2.2 mg/dL (1.8-2.4) Total Bilirubin 0.3 mg/dL (0.2-1.0) Aspartate Amino Transf (AST/SGOT) 11 U/L (15-37) Alanine Aminotransferase (ALT/SGPT) 13 U/L (14-59) Alkaline Phosphatase 84 U/L (46-116) Total Protein 6.1 g/dL (6.4-8.2) Albumin 2.8 g/dL (3.4-5.0) Albumin/Globulin Ratio 0.8 (1.0-1.7) Test 06/28/21 10:52 Glucose (Fingerstick) 170 mg/dL (70-99) Assessment Assessment Right knee contusion nonoperative treatment Plan Plan of Care Continue mobilize with physical therapy with symptomatic restrictions only If she does have more pain I did offer injection as a possibility in the right knee Justicifation of Admission Dx: Justifications for Admission: Justification of Admission Dx: N/A Sepsis: Bacteremia WISAM LANDRY MD Jun 28, 2021 16:45
--- NOTE | 2021-06-28 16:52 | CONS ---
DATE OF CONSULTATION: 06/28/2021 ATTENDING PHYSICIAN: Dalton Monge MD REASON FOR CONSULTATION: The patient was seen at the request of Dr. Monge for rehab evaluation. HISTORY OF PRESENT ILLNESS: This is an 86-year-old female with known diabetes mellitus type 2, hypertension, degenerative joint disease of both knees, status post left total knee arthroplasty done by Dr. Parrish about 3 years ago with continued weakness in her left knee, make it give away while she is weightbearing. She had been living at home walking up the ramp with her walker when she tripped on door trim and she tried to catch her balance, but her knees gave out first and she landed on her right knee while trying to hold herself up with a walker. She complained of 8/10 right knee pain and weakness and she had significant pain while trying to stand up weightbearing on her right lower extremity. The patient was admitted for further evaluation and treatment. She lives with her son. The patient denies any significant knee pain at present time. She denies any back pain. She denies any tingling, numbness sensation in the extremities. The patient also with known hypertension, not known allergic to any medication. She denies any trouble with her bowel or bladder control. PHYSICAL EXAMINATION: GENERAL: Today revealed an elderly female. She is alert, oriented to time, place, person and circumstance, follows commands appropriately. NEUROLOGIC: Moves all 4 extremities voluntarily where she had overall 4+/5 grade muscle strength with significant weakness of left knee extension where she had only 2-/5 grade muscle strength. Deep tendon reflexes are absent at both knees and ankles. She had crepitus on range of motion of her right knee joint with knee joint effusion, some bruising over the dorsal aspect of left knee. The patient had painful range of motion of both hip joints. I have not tested her mobility skills as she is on a bedpan when I examined her, supine in bed. ASSESSMENT: Elderly female with degenerative joint disease of right knee, status post left total knee arthroplasty about 3 years ago with significant weakness of the left knee extension, was probably responsible for her left knee giving away and falls, diabetes mellitus with peripheral neuropathy, obesity, hypertension. RECOMMENDATIONS: She can benefit from hinged knee brace at both knees and also for the left knee hinged brace, she might need dynamic in that sense, she can lock the knee in a position of extension. Agree with the plans for transfer to [facility] care unit when medically stable and to consider injecting her right knee if right pain is interfering with her mobility. Dr. Monge, I appreciate asking me to participate in the care of this interesting patient. I will be glad to see her for followup with you on as needed basis. JOSEFINA/GUILHERME/KAMRAN DR: JOSEFINA/clark TID: [id number]
[2021-06-28 19:00] VITALS: BP 122/56
[2021-06-28 23:00] VITALS: BP 144/49
[2021-06-29 03:00] VITALS: BP 131/51
[2021-06-29 07:00] VITALS: BP 138/47
[2021-06-29 08:16] LABS: BASO % 0 % (0-3); EOS # 0.2 x10^3/uL (0.0-0.7); EOS % 2 % (0-3); HEMATOCRIT 32.4 % (36.0-47.0); HEMOGLOBIN 10.7 g/dL (12.0-15.5); LYMPH # 1.5 x10^3/uL (1.0-4.8); LYMPH % 14 % (24-48); MEAN CORPUSCULAR HEMOGLOBIN 30 pg (25-35); MEAN CORPUSCULAR HGB CONC 33 g/dL (31-37); MEAN CORPUSCULAR VOLUME 91 fL (79-100); MONO # 1.1 x10^3/uL (0.0-1.1); MONO % 11 % (0-9); NEUT # 7.5 x10^3/uL (1.8-7.7); NEUT % 72 % (31-73); PLATELET COUNT 237 x10^3/uL (140-400); RED BLOOD COUNT 3.57 x10^6/uL (3.50-5.40); RED CELL DISTRIBUTION WIDTH 14.3 % (11.5-14.5); WHITE BLOOD COUNT 10.3 x10^3/uL (4.0-11.0)
[2021-06-29 08:36] LABS: CALCIUM 8.7 mg/dL (8.5-10.1); CREATININE 1.5 mg/dL (0.6-1.0); GFR 33.1; MAGNESIUM 2.3 mg/dL (1.8-2.4); POTASSIUM 4.8 mmol/L (3.5-5.1)
--- NOTE | 2021-06-29 09:37 | PDOC ---
PROGRESS NOTES Date of Service DATE: 06/29/21 TIME: 09:31 Subjective Subjective She is eager to go home and feels hospital bed is too high for her to get out. Objective Objective Vital Signs Date Time Temp Pulse Resp B/P (MAP) Pulse Ox O2 Delivery O2 Flow Rate FiO2 06/29/21 07:00 97.9 64 18 138/47 (77) 96 Room Air 97.9 Intake and Output 06/29/21 07:00 # Voids 5 # Bowel Movements 1 Physical Exam Physical Exam Physical therapy noted her requiring maximal assistance for transfers. She is alert,supine in bed and seems to be in no acute distress. Assessment Assessment Problems Medical Problems: (1) Fall Status: Acute (2) Right knee DJD Status: Acute (3) Right knee pain Status: Acute Plan Plan of Care To continue present physical and occupational therapy follow up as tolerated and to SNF or home with home health follow up when medically stable. Comment Review of Relevant I have reviewed the following items noam (where applicable) has been applied. Labs Laboratory Tests Test 06/27/21 13:20 06/27/21 13:30 06/27/21 20:57 06/27/21 23:50 SARS-CoV-2 RNA (DIONNE) Negative (Negative) White Blood Count 10.7 x10^3/uL (4.0-11.0) Red Blood Count 3.92 x10^6/uL (3.50-5.40) Hemoglobin 11.5 g/dL (12.0-15.5) Hematocrit 35.1 % (36.0-47.0) Mean Corpuscular Volume 90 fL (79-100) Mean Corpuscular Hemoglobin 30 pg (25-35) Mean Corpuscular Hemoglobin Concent 33 g/dL (31-37) Red Cell Distribution Width 14.1 % (11.5-14.5) Platelet Count 270 x10^3/uL (140-400) Neutrophils (%) (Auto) 75 % (31-73) Lymphocytes (%) (Auto) 16 % (24-48) Monocytes (%) (Auto) 8 % (0-9) Eosinophils (%) (Auto) 1 % (0-3) Basophils (%) (Auto) 1 % (0-3) Neutrophils # (Auto) 8.0 x10^3/uL (1.8-7.7) Lymphocytes # (Auto) 1.7 x10^3/uL (1.0-4.8) Monocytes # (Auto) 0.9 x10^3/uL (0.0-1.1) Eosinophils # (Auto) 0.1 x10^3/uL (0.0-0.7) Basophils # (Auto) 0.1 x10^3/uL (0.0-0.2) Sodium Level 137 mmol/L (136-145) Potassium Level 4.5 mmol/L (3.5-5.1) Chloride Level 102 mmol/L (98-107) Carbon Dioxide Level 26 mmol/L (21-32) Anion Gap 9 (6-14) Blood Urea Nitrogen 36 mg/dL (7-20) Creatinine 1.2 mg/dL (0.6-1.0) Estimated GFR (Cockcroft-Gault) 42.8 BUN/Creatinine Ratio 30 (6-20) Glucose Level 125 mg/dL (70-99) Calcium Level 9.5 mg/dL (8.5-10.1) Phosphorus Level 2.3 mg/dL (2.6-4.7) Magnesium Level 2.2 mg/dL (1.8-2.4) Total Bilirubin 0.3 mg/dL (0.2-1.0) Aspartate Amino Transf (AST/SGOT) 11 U/L (15-37) Alanine Aminotransferase (ALT/SGPT) 17 U/L (14-59) Alkaline Phosphatase 96 U/L (46-116) Total Protein 7.3 g/dL (6.4-8.2) Albumin 3.3 g/dL (3.4-5.0) Albumin/Globulin Ratio 0.8 (1.0-1.7) Vitamin B12 Level 284 pg/mL (247-911) 25-Hydroxy Vitamin D Total 8.1 ng/mL (30-100) SARS-CoV-2 Antigen (Rapid) Negative (NEGATIVE) Glucose (Fingerstick) 215 mg/dL (70-99) Urine Opiates Screen Neg (NEG) Urine Methadone Screen Neg (NEG) Urine Barbiturates Neg (NEG) Urine Phencyclidine Screen Neg (NEG) Urine Amphetamine/Methamphetamine Neg (NEG) Urine Benzodiazepines Screen Neg (NEG) Urine Cocaine Screen Neg (NEG) Urine Cannabinoids Screen Neg (NEG) Urine Ethyl Alcohol Neg (NEG) Test 06/28/21 03:55 06/28/21 07:31 06/28/21 10:52 06/28/21 16:54 White Blood Count 9.0 x10^3/uL (4.0-11.0) Red Blood Count 3.56 x10^6/uL (3.50-5.40) Hemoglobin 10.5 g/dL (12.0-15.5) Hematocrit 32.4 % (36.0-47.0) Mean Corpuscular Volume 91 fL (79-100) Mean Corpuscular Hemoglobin 30 pg (25-35) Mean Corpuscular Hemoglobin Concent 32 g/dL (31-37) Red Cell Distribution Width 14.5 % (11.5-14.5) Platelet Count 244 x10^3/uL (140-400) Neutrophils (%) (Auto) 68 % (31-73) Lymphocytes (%) (Auto) 19 % (24-48) Monocytes (%) (Auto) 11 % (0-9) Eosinophils (%) (Auto) 2 % (0-3) Basophils (%) (Auto) 1 % (0-3) Neutrophils # (Auto) 6.0 x10^3/uL (1.8-7.7) Lymphocytes # (Auto) 1.7 x10^3/uL (1.0-4.8) Monocytes # (Auto) 1.0 x10^3/uL (0.0-1.1) Eosinophils # (Auto) 0.2 x10^3/uL (0.0-0.7) Basophils # (Auto) 0.1 x10^3/uL (0.0-0.2) Sodium Level 138 mmol/L (136-145) Potassium Level 4.6 mmol/L (3.5-5.1) Chloride Level 106 mmol/L (98-107) Carbon Dioxide Level 24 mmol/L (21-32) Anion Gap 8 (6-14) Blood Urea Nitrogen 36 mg/dL (7-20) Creatinine 1.3 mg/dL (0.6-1.0) Estimated GFR (Cockcroft-Gault) 39.0 BUN/Creatinine Ratio 28 (6-20) Glucose Level 164 mg/dL (70-99) Calcium Level 8.4 mg/dL (8.5-10.1) Phosphorus Level 3.9 mg/dL (2.6-4.7) Magnesium Level 2.2 mg/dL (1.8-2.4) Total Bilirubin 0.3 mg/dL (0.2-1.0) Aspartate Amino Transf (AST/SGOT) 11 U/L (15-37) Alanine Aminotransferase (ALT/SGPT) 13 U/L (14-59) Alkaline Phosphatase 84 U/L (46-116) Total Protein 6.1 g/dL (6.4-8.2) Albumin 2.8 g/dL (3.4-5.0) Albumin/Globulin Ratio 0.8 (1.0-1.7) Glucose (Fingerstick) 191 mg/dL (70-99) 170 mg/dL (70-99) 135 mg/dL (70-99) Test 06/29/21 07:40 06/29/21 08:33 White Blood Count 10.3 x10^3/uL (4.0-11.0) Red Blood Count 3.57 x10^6/uL (3.50-5.40) Hemoglobin 10.7 g/dL (12.0-15.5) Hematocrit 32.4 % (36.0-47.0) Mean Corpuscular Volume 91 fL (79-100) Mean Corpuscular Hemoglobin 30 pg (25-35) Mean Corpuscular Hemoglobin Concent 33 g/dL (31-37) Red Cell Distribution Width 14.3 % (11.5-14.5) Platelet Count 237 x10^3/uL (140-400) Neutrophils (%) (Auto) 72 % (31-73) Lymphocytes (%) (Auto) 14 % (24-48) Monocytes (%) (Auto) 11 % (0-9) Eosinophils (%) (Auto) 2 % (0-3) Basophils (%) (Auto) 0 % (0-3) Neutrophils # (Auto) 7.5 x10^3/uL (1.8-7.7) Lymphocytes # (Auto) 1.5 x10^3/uL (1.0-4.8) Monocytes # (Auto) 1.1 x10^3/uL (0.0-1.1) Eosinophils # (Auto) 0.2 x10^3/uL (0.0-0.7) Basophils # (Auto) 0.0 x10^3/uL (0.0-0.2) Sodium Level 137 mmol/L (136-145) Potassium Level 4.8 mmol/L (3.5-5.1) Chloride Level 105 mmol/L (98-107) Carbon Dioxide Level 23 mmol/L (21-32) Anion Gap 9 (6-14) Blood Urea Nitrogen 40 mg/dL (7-20) Creatinine 1.5 mg/dL (0.6-1.0) Estimated GFR (Cockcroft-Gault) 33.1 Glucose Level 147 mg/dL (70-99) Calcium Level 8.7 mg/dL (8.5-10.1) Magnesium Level 2.3 mg/dL (1.8-2.4) Glucose (Fingerstick) 152 mg/dL (70-99) Laboratory Tests Test 06/28/21 10:52 06/28/21 16:54 06/29/21 07:40 06/29/21 08:33 Glucose (Fingerstick) 170 mg/dL (70-99) 135 mg/dL (70-99) 152 mg/dL (70-99) White Blood Count 10.3 x10^3/uL (4.0-11.0) Red Blood Count 3.57 x10^6/uL (3.50-5.40) Hemoglobin 10.7 g/dL (12.0-15.5) Hematocrit 32.4 % (36.0-47.0) Mean Corpuscular Volume 91 fL (79-100) Mean Corpuscular Hemoglobin 30 pg (25-35) Mean Corpuscular Hemoglobin Concent 33 g/dL (31-37) Red Cell Distribution Width 14.3 % (11.5-14.5) Platelet Count 237 x10^3/uL (140-400) Neutrophils (%) (Auto) 72 % (31-73) Lymphocytes (%) (Auto) 14 % (24-48) Monocytes (%) (Auto) 11 % (0-9) Eosinophils (%) (Auto) 2 % (0-3) Basophils (%) (Auto) 0 % (0-3) Neutrophils # (Auto) 7.5 x10^3/uL (1.8-7.7) Lymphocytes # (Auto) 1.5 x10^3/uL (1.0-4.8) Monocytes # (Auto) 1.1 x10^3/uL (0.0-1.1) Eosinophils # (Auto) 0.2 x10^3/uL (0.0-0.7) Basophils # (Auto) 0.0 x10^3/uL (0.0-0.2) Sodium Level 137 mmol/L (136-145) Potassium Level 4.8 mmol/L (3.5-5.1) Chloride Level 105 mmol/L (98-107) Carbon Dioxide Level 23 mmol/L (21-32) Anion Gap 9 (6-14) Blood Urea Nitrogen 40 mg/dL (7-20) Creatinine 1.5 mg/dL (0.6-1.0) Estimated GFR (Cockcroft-Gault) 33.1 Glucose Level 147 mg/dL (70-99) Calcium Level 8.7 mg/dL (8.5-10.1) Magnesium Level 2.3 mg/dL (1.8-2.4) Medications Current Medications Ondansetron HCl (Zofran) 4 mg PRN Q8HRS PRN IVP NAUSEA/VOMITING; Start 06/27/21 at 13:00; Stop 06/27/21 at 13:29; Status DC Morphine Sulfate (Morphine Sulfate) 2 mg PRN Q2HR PRN IVP PAIN; Start 06/27/21 at 13:00; Stop 06/28/21 at 12:59; Status DC Sennosides (Senna) 17.2 mg PRN BID PRN PO CONSTIPATION; Start 06/27/21 at 13:30 Docusate Sodium (Colace) 100 mg PRN DAILY PRN PO HARD STOOLS; Start 06/27/21 at 13:30 Ondansetron HCl (Zofran) 4 mg PRN Q6HRS PRN IVP NAUSEA/VOMITING, 1st CHOICE Last administered on 06/28/21at 14:15; Start 06/27/21 at 13:30 Dextrose (Dextrose 50%-Water Syringe) 12.5 gm PRN Q15MIN PRN IV SEE COMMENTS; Start 06/27/21 at 13:30; Stop 06/27/21 at 22:57; Status DC Acetaminophen (Tylenol) 650 mg PRN Q4HRS PRN PO TEMP OVER 100.4F OR MILD PAIN; Start 06/27/21 at 13:30 Prochlorperazine Edisylate (Compazine) 10 mg PRN Q6HRS PRN IV NAUSEA/VOMITING, 2nd CHOICE Last administered on 06/28/21at 15:50; Start 06/27/21 at 13:30 Carvedilol (Coreg) 12.5 mg BIDWMEALS PO Last administered on 06/28/21at 17:26; Start 06/28/21 at 00:00 Lisinopril (Prinivil) 10 mg DAILY PO Last administered on 06/28/21at 08:32; Start 06/28/21 at 00:00 Metformin HCl (Glucophage) 500 mg BIDWMEALS PO Last administered on 06/28/21at 17:00; Start 06/28/21 at 08:00 Insulin Human Lispro (HumaLOG) 0-7 UNITS TIDWMEALS SQ Last administered on 06/28/21at 11:45; Start 06/28/21 at 08:00 Dextrose (Dextrose 50%-Water Syringe) 12.5 gm PRN Q15MIN PRN IV SEE COMMENTS; Start 06/27/21 at 22:00 Cyanocobalamin (Vitamin B-12) 1,000 mcg DAILY PO Last administered on 06/28/21at 08:32; Start 06/28/21 at 09:00 Methylprednisolone Acetate (DEPO-Medrol 40MG VIAL) 40 mg 1X ONCE IM ; Start 06/28/21 at 09:45; Stop 06/28/21 at 09:49; Status DC Bupivacaine HCl (Sensorcaine-Mpf 0.25%) 10 ml 1X ONCE IJ ; Start 06/28/21 at 09:45; Stop 06/28/21 at 09:49; Status DC Active Scripts Active Voltaren Arthritis Pain (Diclofenac Sodium) 20 Gm Gel..gram. 1 Jay TP BID Gabapentin (Gabapentin) 100 Mg Capsule 100 Mg PO TID Lisinopril 10 Mg Tablet 10 Mg PO DAILY 90 Days Carvedilol (Carvedilol) 12.5 Mg Tablet 12.5 Mg PO BIDWMEALS Atorvastatin Calcium 20 Mg Tablet 20 Mg PO QHS 90 Days Cefdinir 300 Mg Capsule 300 Mg PO BID 5 Days Patten 5-325 Tablet (Acetaminophen/Hydrocodone Bitart) 1 Each Tablet 1 Tab PO PRN Q6HRS PRN Reported Oxybutynin Chloride 5 Mg Tablet 1 Tab PO DAILY Aspirin 325 Mg Tablet 1 Tab PO DAILY Amlodipine Besylate 5 Mg Tablet 5 Mg PO BID Humalog (Insulin Lispro) 100 Unit/1 Ml Vial 0 SQ SSI Lantus Solostar (Insulin Glargine,Hum.rec.anlog) 100 Unit/1 Ml Insuln.pen 12 Unit SQ QHS Metformin Hcl 500 Mg Tablet 500 Mg PO BIDWMEALS Vitals/I & O Vital Sign - Last 24 Hours 06/28/21 06/28/21 06/28/21 06/28/21 11:00 15:00 17:26 19:00 Temp 98.2 98.1 97.9 98.2 98.1 97.9 Pulse 51 56 56 61 Resp 18 18 18 B/P (MAP) 124/45 (71) 130/59 (82) 130/59 122/56 (78) Pulse Ox 97 99 97 O2 Delivery Room Air Room Air Room Air 06/28/21 06/28/21 06/29/21 06/29/21 19:50 23:00 03:00 07:00 Temp 97.8 98.4 97.9 97.8 98.4 97.9 Pulse 53 56 64 Resp 18 18 18 B/P (MAP) 144/49 (80) 131/51 (77) 138/47 (77) Pulse Ox 96 98 96 O2 Delivery Room Air Room Air Room Air Room Air Justifications for Admission Other Justification Multiple falls and weakness MARGARITA HOLT MD Jun 29, 2021 09:36
[2021-06-29] MEDS: CYANOCOBALAMIN (VITAMIN B-12) 1,000 MCG TABLET. PO SCH (10:48)
[2021-06-29] MEDS: metFORMIN 500 MG TABLET PO SCH ×2 (10:48→17:00)
[2021-06-29] MEDS: LISINOPRIL 10 MG TABLET PO SCH (10:49)
[2021-06-29] MEDS: CARVEDILOL 12.5 MG TABLET. PO SCH ×2 (10:49→17:00)
[2021-06-29] MEDS: INSULIN LISPRO 300 UNITS/3 ML VIAL. SQ SCH ×3 (10:52→17:00)
[2021-06-29 11:00] VITALS: BP 133/56
--- NOTE | 2021-06-29 12:57 | PDOC ---
[facility] PROGRESS NOTE Date of Service DOS: DATE: 06/29/21 TIME: 12:54 Chief Complaint Chief Complaint Weakness, fall History of Present Illness History of Present Illness 86-year-old female with past medical history of diabetes mellitus type 2, hypertension, arthritis who who comes into the ED with her son after a fall and falling on her right knee. Apparently she was at home walking up the ramp with her walker when she tripped on the door trim and she tried to catch her balance but her knees gave out first and she landed on her right knee while trying to hold herself up with a walker. Denies any loss of consciousness or head trauma. She currently complains of 8 out of 10 right knee pain and weakness. ED physician attempted to stand her up with a walker but she describes that the pain is sharp and constant and is she is unable to bear weight on the right lower extremity. She feels like she is going to fall and therefore she will be admitted to the hospital service for further management. It was expressed to the son and the patient that likely the patient will need to have physical therapy evaluate and possibly needs some further training with rehabilitation before going home. Patient currently denies any chest pain, shortness of breath, abdominal pain, diarrhea or bloody stools. No syncope or lightheadedness or vertigo. 06/28/21 Patient seen and examined at bedside. Still having some pain. Has been evaluated by Ortho PMR. Refused steroid injection this morning. PT OT evaluation. Likely going to need rehab or SNF placement. Discharge ready at any time for those. 06/29/21 Patient seen and examined at bedside. Reports her knee is overall pain-free even with ambulation. Ortho and PMR following. Continue PT OT. Will start looking for rehab placement. Vitals/I&O Vitals/I&O: Vital Signs Date Time Temp Pulse Resp B/P (MAP) Pulse Ox O2 Delivery O2 Flow Rate FiO2 06/29/21 11:00 98.1 60 18 133/56 (81) 98 Room Air 98.1 Physical Exam General: Alert, Oriented X3, Cooperative Heart: Regular rate, Normal S1, Normal S2 Lungs: Clear, Other Abdomen: Normal bowel sounds, Soft Extremities: Other (Range of motion limited by pain.) Skin: No rashes, No significant lesion Labs Labs: Laboratory Tests Test 06/28/21 16:54 06/29/21 07:40 06/29/21 08:33 06/29/21 11:29 Glucose (Fingerstick) 135 mg/dL (70-99) 152 mg/dL (70-99) 252 mg/dL (70-99) White Blood Count 10.3 x10^3/uL (4.0-11.0) Red Blood Count 3.57 x10^6/uL (3.50-5.40) Hemoglobin 10.7 g/dL (12.0-15.5) Hematocrit 32.4 % (36.0-47.0) Mean Corpuscular Volume 91 fL (79-100) Mean Corpuscular Hemoglobin 30 pg (25-35) Mean Corpuscular Hemoglobin Concent 33 g/dL (31-37) Red Cell Distribution Width 14.3 % (11.5-14.5) Platelet Count 237 x10^3/uL (140-400) Neutrophils (%) (Auto) 72 % (31-73) Lymphocytes (%) (Auto) 14 % (24-48) Monocytes (%) (Auto) 11 % (0-9) Eosinophils (%) (Auto) 2 % (0-3) Basophils (%) (Auto) 0 % (0-3) Neutrophils # (Auto) 7.5 x10^3/uL (1.8-7.7) Lymphocytes # (Auto) 1.5 x10^3/uL (1.0-4.8) Monocytes # (Auto) 1.1 x10^3/uL (0.0-1.1) Eosinophils # (Auto) 0.2 x10^3/uL (0.0-0.7) Basophils # (Auto) 0.0 x10^3/uL (0.0-0.2) Sodium Level 137 mmol/L (136-145) Potassium Level 4.8 mmol/L (3.5-5.1) Chloride Level 105 mmol/L (98-107) Carbon Dioxide Level 23 mmol/L (21-32) Anion Gap 9 (6-14) Blood Urea Nitrogen 40 mg/dL (7-20) Creatinine 1.5 mg/dL (0.6-1.0) Estimated GFR (Cockcroft-Gault) 33.1 Glucose Level 147 mg/dL (70-99) Calcium Level 8.7 mg/dL (8.5-10.1) Magnesium Level 2.3 mg/dL (1.8-2.4) Assessment and Plan Assessmemt and Plan Problems Medical Problems: (1) Fall Status: Acute (2) Right knee DJD Status: Acute (3) Right knee pain Status: Acute Mechanical fall PRASHANT due to vasomotor nephropathy Severe degenerative joint disease History of severe osteoarthritis History of diabetes mellitus type 2 History of hypertension Obesity class I Moderate protein malnutrition Borderline B12 deficiency Admit to hospital service for further management Fall precautions Orthopedic consult Dr. Saunders PMR consult for possible steroid injection --> patient declined PT OT evaluation Home meds resumed Lovenox for DVT prophylaxis ADA diet Full code Discussed with RN and SW Disposition inpatient management as above Surrogate decision maker is son Comment Review of Relevant I have reviewed the following items noam (where applicable) has been applied. Justifications for Admission Other Justification Multiple falls and weakness MAN PATINO MD Jun 29, 2021 12:57
[2021-06-29 15:00] VITALS: BP 102/48
[2021-06-29 19:00] VITALS: BP 163/52
[2021-06-29] MEDS: INSULIN GLARGINE SYRINGE. SQ SCH (21:41)
[2021-06-29 23:00] VITALS: BP 142/44
[2021-06-30 02:53] VITALS: BP 142/44
--- NOTE | 2021-06-30 03:30 | NUR ---
Patient incontinent several times tonight and calls to be changed after voiding. Pure wick placed for skin integrity safety.
[2021-06-30] MEDS: INSULIN LISPRO 300 UNITS/3 ML VIAL. SQ SCH ×3 (08:00→17:47)
[2021-06-30 08:10] VITALS: BP 144/44
[2021-06-30 08:18] LABS: BASO # 0.1 x10^3/uL (0.0-0.2); BASO % 1 % (0-3); EOS # 0.3 x10^3/uL (0.0-0.7); EOS % 3 % (0-3); HEMATOCRIT 31.9 % (36.0-47.0); HEMOGLOBIN 10.4 g/dL (12.0-15.5); LYMPH # 1.8 x10^3/uL (1.0-4.8); LYMPH % 21 % (24-48); MEAN CORPUSCULAR HEMOGLOBIN 30 pg (25-35); MEAN CORPUSCULAR HGB CONC 33 g/dL (31-37); MEAN CORPUSCULAR VOLUME 91 fL (79-100); MONO # 0.9 x10^3/uL (0.0-1.1); MONO % 11 % (0-9); NEUT # 5.7 x10^3/uL (1.8-7.7); NEUT % 65 % (31-73); PLATELET COUNT 249 x10^3/uL (140-400); RED BLOOD COUNT 3.52 x10^6/uL (3.50-5.40); RED CELL DISTRIBUTION WIDTH 14.3 % (11.5-14.5); WHITE BLOOD COUNT 8.8 x10^3/uL (4.0-11.0)
[2021-06-30 08:34] LABS: CALCIUM 8.9 mg/dL (8.5-10.1); CREATININE 1.6 mg/dL (0.6-1.0); GFR 30.7; MAGNESIUM 2.4 mg/dL (1.8-2.4)
[2021-06-30] MEDS: metFORMIN 500 MG TABLET PO SCH ×2 (09:16→17:43)
[2021-06-30] MEDS: CARVEDILOL 12.5 MG TABLET. PO SCH ×2 (09:16→17:43)
[2021-06-30] MEDS: CYANOCOBALAMIN (VITAMIN B-12) 1,000 MCG TABLET. PO SCH (09:16)
[2021-06-30] MEDS: LISINOPRIL 10 MG TABLET PO SCH (09:17)
--- NOTE | 2021-06-30 09:46 | PDOC ---
PROGRESS NOTES Date of Service DATE: 06/30/21 TIME: 09:43 Subjective Subjective No new complaints. She states the wheel chair she had at home is too narrow for her to sit and would like to have a wider wheel chair. She agrees to go to SNF. Objective Objective Vital Signs Date Time Temp Pulse Resp B/P (MAP) Pulse Ox O2 Delivery O2 Flow Rate FiO2 06/30/21 09:17 59 144/44 06/30/21 08:10 98.4 16 Room Air 98.4 06/30/21 02:53 95 Intake and Output 06/30/21 07:00 Output Total 0 ml Balance 0 ml Output Stool Total 0 ml # Voids 8 # Bowel Movements 2 Physical Exam Physical Exam She is alert,supine in bed and she continues to require maximal assistance for transfers. Assessment Assessment Problems Medical Problems: (1) Fall Status: Acute (2) Right knee DJD Status: Acute (3) Right knee pain Status: Acute Plan Plan of Care Agree with plans for transfer to SNF when medically stable. To arrange for a wider wheel chair for her use at home. Comment Review of Relevant I have reviewed the following items noam (where applicable) has been applied. Labs Laboratory Tests Test 06/28/21 10:52 06/28/21 16:54 06/29/21 07:40 06/29/21 08:33 Glucose (Fingerstick) 170 mg/dL (70-99) 135 mg/dL (70-99) 152 mg/dL (70-99) White Blood Count 10.3 x10^3/uL (4.0-11.0) Red Blood Count 3.57 x10^6/uL (3.50-5.40) Hemoglobin 10.7 g/dL (12.0-15.5) Hematocrit 32.4 % (36.0-47.0) Mean Corpuscular Volume 91 fL (79-100) Mean Corpuscular Hemoglobin 30 pg (25-35) Mean Corpuscular Hemoglobin Concent 33 g/dL (31-37) Red Cell Distribution Width 14.3 % (11.5-14.5) Platelet Count 237 x10^3/uL (140-400) Neutrophils (%) (Auto) 72 % (31-73) Lymphocytes (%) (Auto) 14 % (24-48) Monocytes (%) (Auto) 11 % (0-9) Eosinophils (%) (Auto) 2 % (0-3) Basophils (%) (Auto) 0 % (0-3) Neutrophils # (Auto) 7.5 x10^3/uL (1.8-7.7) Lymphocytes # (Auto) 1.5 x10^3/uL (1.0-4.8) Monocytes # (Auto) 1.1 x10^3/uL (0.0-1.1) Eosinophils # (Auto) 0.2 x10^3/uL (0.0-0.7) Basophils # (Auto) 0.0 x10^3/uL (0.0-0.2) Sodium Level 137 mmol/L (136-145) Potassium Level 4.8 mmol/L (3.5-5.1) Chloride Level 105 mmol/L (98-107) Carbon Dioxide Level 23 mmol/L (21-32) Anion Gap 9 (6-14) Blood Urea Nitrogen 40 mg/dL (7-20) Creatinine 1.5 mg/dL (0.6-1.0) Estimated GFR (Cockcroft-Gault) 33.1 Glucose Level 147 mg/dL (70-99) Calcium Level 8.7 mg/dL (8.5-10.1) Magnesium Level 2.3 mg/dL (1.8-2.4) Test 06/29/21 11:29 06/29/21 17:39 06/29/21 21:15 06/30/21 06:10 Glucose (Fingerstick) 252 mg/dL (70-99) 107 mg/dL (70-99) 224 mg/dL (70-99) White Blood Count 8.8 x10^3/uL (4.0-11.0) Red Blood Count 3.52 x10^6/uL (3.50-5.40) Hemoglobin 10.4 g/dL (12.0-15.5) Hematocrit 31.9 % (36.0-47.0) Mean Corpuscular Volume 91 fL (79-100) Mean Corpuscular Hemoglobin 30 pg (25-35) Mean Corpuscular Hemoglobin Concent 33 g/dL (31-37) Red Cell Distribution Width 14.3 % (11.5-14.5) Platelet Count 249 x10^3/uL (140-400) Neutrophils (%) (Auto) 65 % (31-73) Lymphocytes (%) (Auto) 21 % (24-48) Monocytes (%) (Auto) 11 % (0-9) Eosinophils (%) (Auto) 3 % (0-3) Basophils (%) (Auto) 1 % (0-3) Neutrophils # (Auto) 5.7 x10^3/uL (1.8-7.7) Lymphocytes # (Auto) 1.8 x10^3/uL (1.0-4.8) Monocytes # (Auto) 0.9 x10^3/uL (0.0-1.1) Eosinophils # (Auto) 0.3 x10^3/uL (0.0-0.7) Basophils # (Auto) 0.1 x10^3/uL (0.0-0.2) Sodium Level 136 mmol/L (136-145) Potassium Level 5.0 mmol/L (3.5-5.1) Chloride Level 105 mmol/L (98-107) Carbon Dioxide Level 25 mmol/L (21-32) Anion Gap 6 (6-14) Blood Urea Nitrogen 43 mg/dL (7-20) Creatinine 1.6 mg/dL (0.6-1.0) Estimated GFR (Cockcroft-Gault) 30.7 Glucose Level 145 mg/dL (70-99) Calcium Level 8.9 mg/dL (8.5-10.1) Magnesium Level 2.4 mg/dL (1.8-2.4) Test 06/30/21 08:06 Glucose (Fingerstick) 133 mg/dL (70-99) Laboratory Tests Test 06/29/21 11:29 06/29/21 17:39 06/29/21 21:15 06/30/21 06:10 Glucose (Fingerstick) 252 mg/dL (70-99) 107 mg/dL (70-99) 224 mg/dL (70-99) White Blood Count 8.8 x10^3/uL (4.0-11.0) Red Blood Count 3.52 x10^6/uL (3.50-5.40) Hemoglobin 10.4 g/dL (12.0-15.5) Hematocrit 31.9 % (36.0-47.0) Mean Corpuscular Volume 91 fL (79-100) Mean Corpuscular Hemoglobin 30 pg (25-35) Mean Corpuscular Hemoglobin Concent 33 g/dL (31-37) Red Cell Distribution Width 14.3 % (11.5-14.5) Platelet Count 249 x10^3/uL (140-400) Neutrophils (%) (Auto) 65 % (31-73) Lymphocytes (%) (Auto) 21 % (24-48) Monocytes (%) (Auto) 11 % (0-9) Eosinophils (%) (Auto) 3 % (0-3) Basophils (%) (Auto) 1 % (0-3) Neutrophils # (Auto) 5.7 x10^3/uL (1.8-7.7) Lymphocytes # (Auto) 1.8 x10^3/uL (1.0-4.8) Monocytes # (Auto) 0.9 x10^3/uL (0.0-1.1) Eosinophils # (Auto) 0.3 x10^3/uL (0.0-0.7) Basophils # (Auto) 0.1 x10^3/uL (0.0-0.2) Sodium Level 136 mmol/L (136-145) Potassium Level 5.0 mmol/L (3.5-5.1) Chloride Level 105 mmol/L (98-107) Carbon Dioxide Level 25 mmol/L (21-32) Anion Gap 6 (6-14) Blood Urea Nitrogen 43 mg/dL (7-20) Creatinine 1.6 mg/dL (0.6-1.0) Estimated GFR (Cockcroft-Gault) 30.7 Glucose Level 145 mg/dL (70-99) Calcium Level 8.9 mg/dL (8.5-10.1) Magnesium Level 2.4 mg/dL (1.8-2.4) Test 06/30/21 08:06 Glucose (Fingerstick) 133 mg/dL (70-99) Medications Current Medications Ondansetron HCl (Zofran) 4 mg PRN Q8HRS PRN IVP NAUSEA/VOMITING; Start 06/27/21 at 13:00; Stop 06/27/21 at 13:29; Status DC Morphine Sulfate (Morphine Sulfate) 2 mg PRN Q2HR PRN IVP PAIN; Start 06/27/21 at 13:00; Stop 06/28/21 at 12:59; Status DC Sennosides (Senna) 17.2 mg PRN BID PRN PO CONSTIPATION; Start 06/27/21 at 13:30 Docusate Sodium (Colace) 100 mg PRN DAILY PRN PO HARD STOOLS; Start 06/27/21 at 13:30 Ondansetron HCl (Zofran) 4 mg PRN Q6HRS PRN IVP NAUSEA/VOMITING, 1st CHOICE Last administered on 06/28/21at 14:15; Start 06/27/21 at 13:30 Dextrose (Dextrose 50%-Water Syringe) 12.5 gm PRN Q15MIN PRN IV SEE COMMENTS; Start 06/27/21 at 13:30; Stop 06/27/21 at 22:57; Status DC Acetaminophen (Tylenol) 650 mg PRN Q4HRS PRN PO TEMP OVER 100.4F OR MILD PAIN; Start 06/27/21 at 13:30 Prochlorperazine Edisylate (Compazine) 10 mg PRN Q6HRS PRN IV NAUSEA/VOMITING, 2nd CHOICE Last administered on 06/28/21at 15:50; Start 06/27/21 at 13:30 Carvedilol (Coreg) 12.5 mg BIDWMEALS PO Last administered on 06/30/21at 09:16; Start 06/28/21 at 00:00 Lisinopril (Prinivil) 10 mg DAILY PO Last administered on 06/30/21at 09:17; Start 06/28/21 at 00:00 Metformin HCl (Glucophage) 500 mg BIDWMEALS PO Last administered on 06/30/21at 09:16; Start 06/28/21 at 08:00 Insulin Human Lispro (HumaLOG) 0-7 UNITS TIDWMEALS SQ Last administered on 06/29/21at 12:53; Start 06/28/21 at 08:00 Dextrose (Dextrose 50%-Water Syringe) 12.5 gm PRN Q15MIN PRN IV SEE COMMENTS; Start 06/27/21 at 22:00 Cyanocobalamin (Vitamin B-12) 1,000 mcg DAILY PO Last administered on 06/30/21at 09:16; Start 06/28/21 at 09:00 Methylprednisolone Acetate (DEPO-Medrol 40MG VIAL) 40 mg 1X ONCE IM ; Start 06/28/21 at 09:45; Stop 06/28/21 at 09:49; Status DC Bupivacaine HCl (Sensorcaine-Mpf 0.25%) 10 ml 1X ONCE IJ ; Start 06/28/21 at 09:45; Stop 06/28/21 at 09:49; Status DC Insulin Glargine (Lantus Syringe) 12 unit QHS SQ Last administered on 06/29/21at 21:41; Start 06/29/21 at 21:00 Active Scripts Active Voltaren Arthritis Pain (Diclofenac Sodium) 20 Gm Gel..gram. 1 Jay TP BID Gabapentin (Gabapentin) 100 Mg Capsule 100 Mg PO TID Lisinopril 10 Mg Tablet 10 Mg PO DAILY 90 Days Carvedilol (Carvedilol) 12.5 Mg Tablet 12.5 Mg PO BIDWMEALS Atorvastatin Calcium 20 Mg Tablet 20 Mg PO QHS 90 Days Cefdinir 300 Mg Capsule 300 Mg PO BID 5 Days [place] 5-325 Tablet (Acetaminophen/Hydrocodone Bitart) 1 Each Tablet 1 Tab PO PRN Q6HRS PRN Reported Oxybutynin Chloride 5 Mg Tablet 1 Tab PO DAILY Aspirin 325 Mg Tablet 1 Tab PO DAILY Amlodipine Besylate 5 Mg Tablet 5 Mg PO BID Humalog (Insulin Lispro) 100 Unit/1 Ml Vial 0 SQ SSI Lantus Solostar (Insulin Glargine,Hum.rec.anlog) 100 Unit/1 Ml Insuln.pen 12 Unit SQ QHS Metformin Hcl 500 Mg Tablet 500 Mg PO BIDWMEALS Vitals/I & O Vital Sign - Last 24 Hours 06/29/21 06/29/21 06/29/21 06/29/21 10:49 10:49 11:00 15:00 Temp 98.1 98.3 98.1 98.3 Pulse 64 64 60 57 Resp 18 18 B/P (MAP) 138/47 138/47 133/56 (81) 102/48 (66) Pulse Ox 98 98 O2 Delivery Room Air Room Air 06/29/21 06/29/21 06/29/21 06/29/21 17:00 19:00 20:15 23:00 Temp 98.0 98.3 98.0 98.3 Pulse 57 69 60 Resp 18 18 B/P (MAP) 102/48 163/52 (89) 142/44 (76) Pulse Ox 94 95 O2 Delivery Room Air Room Air Room Air 06/30/21 06/30/21 06/30/21 06/30/21 02:53 08:10 09:16 09:17 Temp 97.8 98.4 97.8 98.4 Pulse 56 59 59 59 Resp 18 16 B/P (MAP) 142/44 (76) 144/44 (77) 144/44 144/44 Pulse Ox 95 O2 Delivery Room Air Room Air Intake and Output 06/29/21 06/29/21 06/30/21 15:00 23:00 07:00 Output Total 0 ml Balance 0 ml Justifications for Admission Other Justification Multiple falls and weakness MARGARITA HOLT MD Jun 30, 2021 09:46
[2021-06-30 11:00] VITALS: BP 105/41
--- NOTE | 2021-06-30 12:59 | PDOC ---
[facility] [facility] PROGRESS NOTE Date of Service DOS: DATE: 06/30/21 TIME: 12:57 Chief Complaint Chief Complaint Weakness, fall History of Present Illness History of Present Illness 86-year-old female with past medical history of diabetes mellitus type 2, hypertension, arthritis who who comes into the ED with her son after a fall and falling on her right knee. Apparently she was at home walking up the ramp with her walker when she tripped on the door trim and she tried to catch her balance but her knees gave out first and she landed on her right knee while trying to hold herself up with a walker. Denies any loss of consciousness or head trauma. She currently complains of 8 out of 10 right knee pain and weakness. ED physician attempted to stand her up with a walker but she describes that the pain is sharp and constant and is she is unable to bear weight on the right lower extremity. She feels like she is going to fall and therefore she will be admitted to the hospital service for further management. It was expressed to the son and the patient that likely the patient will need to have physical therapy evaluate and possibly needs some further training with rehabilitation before going home. Patient currently denies any chest pain, shortness of breath, abdominal pain, diarrhea or bloody stools. No syncope or lightheadedness or vertigo. 06/28/21 Patient seen and examined at bedside. Still having some pain. Has been evaluated by Ortho PMR. Refused steroid injection this morning. PT OT evaluation. Likely going to need rehab or SNF placement. Discharge ready at any time for those. 06/29/21 Patient seen and examined at bedside. Reports her knee is overall pain-free even with ambulation. Ortho and PMR following. Continue PT OT. Will start looking for rehab placement. 06/30/21 Patient seen and examined at bedside. Major clinical changes overall. Patient agreeable to SNF placement. Plan of care discussed with bedside RN Vitals/I&O Vitals/I&O: Vital Signs Date Time Temp Pulse Resp B/P (MAP) Pulse Ox O2 Delivery O2 Flow Rate FiO2 06/30/21 11:00 98.4 60 18 105/41 (62) 97 Room Air 98.4 I & O 06/29/21 06/29/21 06/30/21 15:00 23:00 07:00 Output Total 0 ml Balance 0 ml Physical Exam General: Alert, Oriented X3, Cooperative Heart: Regular rate, Normal S1, Normal S2 Lungs: Clear, Other Abdomen: Normal bowel sounds, Soft Extremities: Other (Range of motion limited by pain.) Skin: No rashes, No significant lesion Labs Labs: Laboratory Tests Test 06/29/21 17:39 06/29/21 21:15 06/30/21 06:10 06/30/21 08:06 Glucose (Fingerstick) 107 mg/dL (70-99) 224 mg/dL (70-99) 133 mg/dL (70-99) White Blood Count 8.8 x10^3/uL (4.0-11.0) Red Blood Count 3.52 x10^6/uL (3.50-5.40) Hemoglobin 10.4 g/dL (12.0-15.5) Hematocrit 31.9 % (36.0-47.0) Mean Corpuscular Volume 91 fL (79-100) Mean Corpuscular Hemoglobin 30 pg (25-35) Mean Corpuscular Hemoglobin Concent 33 g/dL (31-37) Red Cell Distribution Width 14.3 % (11.5-14.5) Platelet Count 249 x10^3/uL (140-400) Neutrophils (%) (Auto) 65 % (31-73) Lymphocytes (%) (Auto) 21 % (24-48) Monocytes (%) (Auto) 11 % (0-9) Eosinophils (%) (Auto) 3 % (0-3) Basophils (%) (Auto) 1 % (0-3) Neutrophils # (Auto) 5.7 x10^3/uL (1.8-7.7) Lymphocytes # (Auto) 1.8 x10^3/uL (1.0-4.8) Monocytes # (Auto) 0.9 x10^3/uL (0.0-1.1) Eosinophils # (Auto) 0.3 x10^3/uL (0.0-0.7) Basophils # (Auto) 0.1 x10^3/uL (0.0-0.2) Sodium Level 136 mmol/L (136-145) Potassium Level 5.0 mmol/L (3.5-5.1) Chloride Level 105 mmol/L (98-107) Carbon Dioxide Level 25 mmol/L (21-32) Anion Gap 6 (6-14) Blood Urea Nitrogen 43 mg/dL (7-20) Creatinine 1.6 mg/dL (0.6-1.0) Estimated GFR (Cockcroft-Gault) 30.7 Glucose Level 145 mg/dL (70-99) Calcium Level 8.9 mg/dL (8.5-10.1) Magnesium Level 2.4 mg/dL (1.8-2.4) Test 06/30/21 11:47 Glucose (Fingerstick) 176 mg/dL (70-99) Review of Systems Review of Systems: Negative Assessment and Plan Assessmemt and Plan Problems Medical Problems: (1) Fall Status: Acute (2) Right knee DJD Status: Acute (3) Right knee pain Status: Acute Mechanical fall PRASHANT due to vasomotor nephropathy Severe degenerative joint disease History of severe osteoarthritis History of diabetes mellitus type 2 History of hypertension Obesity class I Moderate protein malnutrition Borderline B12 deficiency Admit to hospital service for further management Fall precautions Orthopedic consult Dr. Saunders PMR consult for possible steroid injection --> patient declined PT OT evaluation Home meds resumed Lovenox for DVT prophylaxis ADA diet Full code Discussed with RN and SW Disposition SNF once accepted Surrogate decision maker is son Comment Review of Relevant I have reviewed the following items noam (where applicable) has been applied. Medications: Current Medications Medications (Trade) Dose Ordered Sig/[place] PRN Reason Start Time Stop Time Status Last Admin Dose Admin Insulin Glargine (Lantus Syringe) 12 unit QHS SQ 06/29/21 21:00 06/29/21 21:41 Justifications for Admission Other Justification Multiple falls and weakness MAN PATINO MD Jun 30, 2021 12:58
[2021-06-30 15:34] VITALS: BP 146/47
--- NOTE | 2021-06-30 18:48 | NUR ---
report to [facility], care relinquished
[2021-06-30 19:29] VITALS: BP 141/52
[2021-06-30] MEDS: INSULIN GLARGINE SYRINGE. SQ SCH (21:02)
[2021-06-30 22:42] VITALS: BP 162/48
[2021-07-01 07:00] VITALS: BP 161/43
[2021-07-01] MEDS: INSULIN LISPRO 300 UNITS/3 ML VIAL. SQ SCH ×3 (08:00→17:47)
[2021-07-01] MEDS: LISINOPRIL 10 MG TABLET PO SCH (08:33)
[2021-07-01] MEDS: metFORMIN 500 MG TABLET PO SCH ×2 (08:33→17:38)
[2021-07-01] MEDS: CYANOCOBALAMIN (VITAMIN B-12) 1,000 MCG TABLET. PO SCH (08:34)
[2021-07-01] MEDS: CARVEDILOL 12.5 MG TABLET. PO SCH ×2 (08:35→17:39)
[2021-07-01 11:00] VITALS: BP 126/44
--- NOTE | 2021-07-01 11:29 | PDOC ---
[facility] [facility] PROGRESS NOTE Date of Service DOS: DATE: 07/01/21 TIME: 11:27 Chief Complaint Chief Complaint Weakness, fall History of Present Illness History of Present Illness 86-year-old female with past medical history of diabetes mellitus type 2, hypertension, arthritis who who comes into the ED with her son after a fall and falling on her right knee. Apparently she was at home walking up the ramp with her walker when she tripped on the door trim and she tried to catch her balance but her knees gave out first and she landed on her right knee while trying to hold herself up with a walker. Denies any loss of consciousness or head trauma. She currently complains of 8 out of 10 right knee pain and weakness. ED physician attempted to stand her up with a walker but she describes that the pain is sharp and constant and is she is unable to bear weight on the right lower extremity. She feels like she is going to fall and therefore she will be admitted to the hospital service for further management. It was expressed to the son and the patient that likely the patient will need to have physical therapy evaluate and possibly needs some further training with rehabilitation before going home. Patient currently denies any chest pain, shortness of breath, abdominal pain, diarrhea or bloody stools. No syncope or lightheadedness or vertigo. 06/28/21 Patient seen and examined at bedside. Still having some pain. Has been evaluated by Ortho PMR. Refused steroid injection this morning. PT OT evaluation. Likely going to need rehab or SNF placement. Discharge ready at any time for those. 06/29/21 Patient seen and examined at bedside. Reports her knee is overall pain-free even with ambulation. Ortho and PMR following. Continue PT OT. Will start looking for rehab placement. 06/30/21 Patient seen and examined at bedside. Major clinical changes overall. Patient agreeable to SNF placement. Plan of care discussed with bedside RN 07/01/21 Patient seen and examined at bedside. No major clinical changes. Continuing current plan. Need SNF placement. Discharge once placement found. Vitals/I&O Vitals/I&O: Vital Signs Date Time Temp Pulse Resp B/P (MAP) Pulse Ox O2 Delivery O2 Flow Rate FiO2 07/01/21 08:35 58 161/43 07/01/21 07:00 97.8 18 98 Room Air 97.8 I & O 806/30/21 07/01/21 15:00 23:00 07:00 Intake Total 120 ml Output Total 600 ml Balance -480 ml Physical Exam General: Alert, Oriented X3, Cooperative, mild distress Heart: Regular rate, Normal S1, Normal S2 Lungs: Clear, Other Abdomen: Normal bowel sounds, Soft Extremities: Other (Range of motion limited by pain.) Skin: No rashes, No significant lesion Labs Labs: Laboratory Tests Test 06/30/21 11:47 06/30/21 16:30 06/30/21 20:33 07/01/21 07:50 Glucose (Fingerstick) 176 mg/dL (70-99) 189 mg/dL (70-99) 152 mg/dL (70-99) 144 mg/dL (70-99) Assessment and Plan Assessmemt and Plan Problems Medical Problems: (1) Fall Status: Acute (2) Right knee DJD Status: Acute (3) Right knee pain Status: Acute Mechanical fall PRASHANT due to vasomotor nephropathy Severe degenerative joint disease History of severe osteoarthritis History of diabetes mellitus type 2 History of hypertension Obesity class I Moderate protein malnutrition Borderline B12 deficiency Admit to hospital service for further management Fall precautions Orthopedic consult Dr. Saunders PMR consult for possible steroid injection --> patient declined PT OT evaluation Home meds resumed Lovenox for DVT prophylaxis ADA diet Full code Discussed with RN and SW Disposition SNF once accepted Surrogate decision maker is son Comment Review of Relevant I have reviewed the following items noam (where applicable) has been applied. Justifications for Admission Other Justification Multiple falls and weakness MAN PATINO MD Jul 01, 2021 11:29
[2021-07-01 14:53] VITALS: BP 152/46
[2021-07-01 19:23] VITALS: BP 119/32
[2021-07-01] MEDS: INSULIN GLARGINE SYRINGE. SQ SCH (22:13)
[2021-07-01 23:00] VITALS: BP 138/31
[2021-07-02 03:30] VITALS: BP 126/45
[2021-07-02 07:00] VITALS: BP 166/57
--- NOTE | 2021-07-02 07:02 | PDOC ---
[facility] [facility] PROGRESS NOTE Date of Service DOS: DATE: 07/02/21 TIME: 07:00 Chief Complaint Chief Complaint Weakness, fall Hypertension DM2 with insulin use CKD3 Vitamin D deficiency HLD History of Present Illness History of Present Illness Ms Casanova is an 86-year-old female with past medical history of diabetes mellitus type 2, hypertension, arthritis who who comes into the ED with her son after a fall and falling on her right knee. Apparently she was at home walking up the ramp with her walker when she tripped on the door trim and she tried to catch her balance but her knees gave out first and she landed on her right knee while trying to hold herself up with a walker. Denies any loss of consciousness or head trauma. She currently complains of 8 out of 10 right knee pain and weakness. ED physician attempted to stand her up with a walker but she describes that the pain is sharp and constant and is she is unable to bear weight on the right lower extremity. She feels like she is going to fall and therefore she will be admitted to the hospital service for further management. It was expressed to the son and the patient that likely the patient will need to have physical therapy evaluate and possibly needs some further training with rehabilitation before going home. Patient currently denies any chest pain, shortness of breath, abdominal pain, diarrhea or bloody stools. No syncope or lightheadedness or vertigo. 06/28/21 Patient seen and examined at bedside. Still having some pain. Has been evaluated by Ortho PMR. Refused steroid injection this morning. PT OT evaluation. Likely going to need rehab or SNF placement. Discharge ready at any time for those. 06/29/21 Patient seen and examined at bedside. Reports her knee is overall pain-free even with ambulation. Ortho and PMR following. Continue PT OT. Will start looking for rehab placement. 06/30/21 Patient seen and examined at bedside. Major clinical changes overall. Patient agreeable to SNF placement. Plan of care discussed with bedside RN 07/01/21 Patient seen and examined at bedside. No major clinical changes. Continuing current plan. Need SNF placement. Discharge once placement found. Afebrile overnight. No chest pain or shortness of breath. Still feeling very weak working with physical therapy today requiring two-person assistance to get up. She complained of some left ankle pain today. No imaging noted on initial hospitalization some lateral bruising she does not remember if she struck her ankle when she fell prior to admission. Vitals/I&O Vitals/I&O: Vital Signs Date Time Temp Pulse Resp B/P (MAP) Pulse Ox O2 Delivery O2 Flow Rate FiO2 07/02/21 03:30 97.9 60 20 126/45 (72) 97 Room Air 97.9 I & O 07/01/21 07/01/21 07/02/21 15:00 23:00 07:00 Intake Total 740 ml 440 ml Output Total 900 ml Balance 740 ml 440 ml -900 ml Physical Exam General: Alert, Oriented X3, Cooperative, mild distress Heart: Regular rate, Normal S1, Normal S2 Lungs: Clear, Other Abdomen: Normal bowel sounds, Soft Extremities: Other (Range of motion limited by pain.) Skin: No rashes, No significant lesion Labs Labs: Laboratory Tests Test 07/01/21 07:50 07/01/21 11:52 07/01/21 12:31 07/01/21 17:28 Glucose (Fingerstick) 144 mg/dL (70-99) 183 mg/dL (70-99) 196 mg/dL (70-99) 172 mg/dL (70-99) Test 07/01/21 21:29 Glucose (Fingerstick) 158 mg/dL (70-99) Assessment and Plan Assessmemt and Plan Problems Medical Problems: (1) Fall Status: Acute (2) Right knee DJD Status: Acute (3) Right knee pain Status: Acute Comment Review of Relevant I have reviewed the following items noam (where applicable) has been applied. Justifications for Admission Other Justification Multiple falls and weakness MAN CASTILLO MD Jul 02, 2021 07:02
[2021-07-02] MEDS: INSULIN LISPRO 300 UNITS/3 ML VIAL. SQ SCH ×2 (08:00→11:34)
[2021-07-02] MEDS: CYANOCOBALAMIN (VITAMIN B-12) 1,000 MCG TABLET. PO SCH (08:57)
[2021-07-02] MEDS: metFORMIN 500 MG TABLET PO SCH (08:57)
[2021-07-02] MEDS: CARVEDILOL 12.5 MG TABLET. PO SCH (08:57)
[2021-07-02] MEDS: LISINOPRIL 10 MG TABLET PO SCH (08:58)
--- NOTE | 2021-07-02 09:16 | PDOC ---
PROGRESS NOTES Date of Service DATE: 07/02/21 TIME: 09:14 Subjective Subjective No new complaints. Objective Objective Vital Signs Date Time Temp Pulse Resp B/P (MAP) Pulse Ox O2 Delivery O2 Flow Rate FiO2 07/02/21 08:58 58 166/57 07/02/21 03:30 97.9 20 97 Room Air 97.9 Intake and Output 07/02/21 06:59 Intake Total 1180 ml Output Total 900 ml Balance 280 ml Intake Oral 1180 ml Output Urine Total 900 ml # Voids 2 Physical Exam Physical Exam She is supine in bed and she continues to require physical assistance for transfers. Assessment Assessment Problems Medical Problems: (1) Fall Status: Acute (2) Right knee DJD Status: Acute (3) Right knee pain Status: Acute Plan Plan of Care To SNF when medically stable. Comment Review of Relevant I have reviewed the following items noam (where applicable) has been applied. Labs Laboratory Tests Test 06/30/21 11:47 06/30/21 16:30 06/30/21 20:33 07/01/21 07:50 Glucose (Fingerstick) 176 mg/dL (70-99) 189 mg/dL (70-99) 152 mg/dL (70-99) 144 mg/dL (70-99) Test 07/01/21 11:52 07/01/21 12:31 07/01/21 17:28 07/01/21 21:29 Glucose (Fingerstick) 183 mg/dL (70-99) 196 mg/dL (70-99) 172 mg/dL (70-99) 158 mg/dL (70-99) Test 07/02/21 07:52 Glucose (Fingerstick) 138 mg/dL (70-99) Laboratory Tests Test 07/01/21 11:52 07/01/21 12:31 07/01/21 17:28 07/01/21 21:29 Glucose (Fingerstick) 183 mg/dL (70-99) 196 mg/dL (70-99) 172 mg/dL (70-99) 158 mg/dL (70-99) Test 07/02/21 07:52 Glucose (Fingerstick) 138 mg/dL (70-99) Medications Current Medications Ondansetron HCl (Zofran) 4 mg PRN Q8HRS PRN IVP NAUSEA/VOMITING; Start 06/27/21 at 13:00; Stop 06/27/21 at 13:29; Status DC Morphine Sulfate (Morphine Sulfate) 2 mg PRN Q2HR PRN IVP PAIN; Start 06/27/21 at 13:00; Stop 06/28/21 at 12:59; Status DC Sennosides (Senna) 17.2 mg PRN BID PRN PO CONSTIPATION Last administered on 07/01/21at 22:15; Start 06/27/21 at 13:30 Docusate Sodium (Colace) 100 mg PRN DAILY PRN PO HARD STOOLS; Start 06/27/21 at 13:30 Ondansetron HCl (Zofran) 4 mg PRN Q6HRS PRN IVP NAUSEA/VOMITING, 1st CHOICE Last administered on 06/28/21at 14:15; Start 06/27/21 at 13:30 Dextrose (Dextrose 50%-Water Syringe) 12.5 gm PRN Q15MIN PRN IV SEE COMMENTS; Start 06/27/21 at 13:30; Stop 06/27/21 at 22:57; Status DC Acetaminophen (Tylenol) 650 mg PRN Q4HRS PRN PO TEMP OVER 100.4F OR MILD PAIN; Start 06/27/21 at 13:30 Prochlorperazine Edisylate (Compazine) 10 mg PRN Q6HRS PRN IV NAUSEA/VOMITING, 2nd CHOICE Last administered on 06/28/21at 15:50; Start 06/27/21 at 13:30 Carvedilol (Coreg) 12.5 mg BIDWMEALS PO Last administered on 07/02/21at 08:57; Start 06/28/21 at 00:00 Lisinopril (Prinivil) 10 mg DAILY PO Last administered on 07/02/21at 08:58; Start 06/28/21 at 00:00 Metformin HCl (Glucophage) 500 mg BIDWMEALS PO Last administered on 07/02/21at 08:57; Start 06/28/21 at 08:00 Insulin Human Lispro (HumaLOG) 0-7 UNITS TIDWMEALS SQ Last administered on 07/01/21at 17:47; Start 06/28/21 at 08:00 Dextrose (Dextrose 50%-Water Syringe) 12.5 gm PRN Q15MIN PRN IV SEE COMMENTS; Start 06/27/21 at 22:00 Cyanocobalamin (Vitamin B-12) 1,000 mcg DAILY PO Last administered on 07/02/21at 08:57; Start 06/28/21 at 09:00 Methylprednisolone Acetate (DEPO-Medrol 40MG VIAL) 40 mg 1X ONCE IM ; Start 06/28/21 at 09:45; Stop 06/28/21 at 09:49; Status DC Bupivacaine HCl (Sensorcaine-Mpf 0.25%) 10 ml 1X ONCE IJ ; Start 06/28/21 at 09:45; Stop 06/28/21 at 09:49; Status DC Insulin Glargine (Lantus Syringe) 12 unit QHS SQ Last administered on 07/01/21at 22:13; Start 06/29/21 at 21:00 Active Scripts Active Voltaren Arthritis Pain (Diclofenac Sodium) 20 Gm Gel..gram. 1 Jay TP BID Gabapentin (Gabapentin) 100 Mg Capsule 100 Mg PO TID Lisinopril 10 Mg Tablet 10 Mg PO DAILY 90 Days Carvedilol (Carvedilol) 12.5 Mg Tablet 12.5 Mg PO BIDWMEALS Atorvastatin Calcium 20 Mg Tablet 20 Mg PO QHS 90 Days Cefdinir 300 Mg Capsule 300 Mg PO BID 5 Days [place] 5-325 Tablet (Acetaminophen/Hydrocodone Bitart) 1 Each Tablet 1 Tab PO PRN Q6HRS PRN Reported Oxybutynin Chloride 5 Mg Tablet 1 Tab PO DAILY Aspirin 325 Mg Tablet 1 Tab PO DAILY Amlodipine Besylate 5 Mg Tablet 5 Mg PO BID Humalog (Insulin Lispro) 100 Unit/1 Ml Vial 0 SQ SSI Lantus Solostar (Insulin Glargine,Hum.rec.anlog) 100 Unit/1 Ml Insuln.pen 12 Unit SQ QHS Metformin Hcl 500 Mg Tablet 500 Mg PO BIDWMEALS Vitals/I & O Vital Sign - Last 24 Hours 07/01/21 07/01/21 07/01/21 07/01/21 11:00 14:53 17:39 19:23 Temp 97.8 97.6 97.9 97.8 97.6 97.9 Pulse 59 61 61 64 Resp 20 16 20 B/P (MAP) 126/44 (71) 152/46 (81) 152/46 119/32 (61) Pulse Ox 96 95 95 O2 Delivery Room Air Room Air 07/01/21 07/01/21 07/02/21 07/02/21 20:10 23:00 03:30 08:57 Temp 97.7 97.9 97.7 97.9 Pulse 64 60 58 Resp 20 20 B/P (MAP) 138/31 (66) 126/45 (72) 166/57 Pulse Ox 97 97 O2 Delivery Room Air Room Air Room Air 07/02/21 08:58 Pulse 58 B/P (MAP) 166/57 Intake and Output 07/01/21 07/01/21 07/02/21 14:59 22:59 06:59 Intake Total 740 ml 440 ml Output Total 900 ml Balance 740 ml 440 ml -900 ml Justifications for Admission Other Justification Multiple falls and weakness MARGARITA HOLT MD Jul 02, 2021 09:16
[2021-07-02] MEDS ORDERED: CHOL5000 PO ×2 (09:39→11:13)
[2021-07-02] MEDS ORDERED: INSU100V6 SQ (09:39)
--- NOTE | 2021-07-02 09:40 | SNU/HH DC ---
DISCHARGE ORDERS DISCHARGE INFORMATION: DISCHARGE DATE: Jul 02, 2021 FINAL DIAGNOSIS Problems Medical Problems: (1) Fall Status: Acute (2) Right knee DJD Status: Acute (3) Right knee pain Status: Acute CONDITION ON DISCHARGE: Stable CODE STATUS: Code Status: Full RETIREMENT: SNF STAY <30 DAYS: Yes POST DISCHARGE ORDERS: ACTIVITY ORDERS: Activity as tolerated WEIGHT BEARING STATUS: No restrictions DIET AFTER DISCHARGE: ADA WOUND/INCISION CARE: Change dressing CHECKS AFTER DISCHARGE: CHECKS AFTER DISCHARGE: Check blood press - daily, Check blood sugar, ac/hs, Check your Temp as needed TREATMENT/EQUIPMENT ORDERS: ADAPTIVE EQUIPMENT NEEDED: None, Front wheeled walker Physical Therapy For: Evalulation/Treatment Occupational Therapy For: Evaluation/Treatment Speech Language Pathology For: Evaluation/Treatment DISCHARGE MEDICATIONS: Home Meds Active Scripts Cholecalciferol (Vitamin D3) (Vitamin D3 ) 125 Mcg Capsule, 125 MCG PO DAILY for SUPPLEMENT for 30 Days, #30 CAP 2 Refills 5,000 UNITS = 125 MCG Prov:MAN CASTILLO MD 07/02/21 Insulin Lispro (HUMALOG) 100 Unit/1 Ml Vial, 0 SQ SSI for dm for 30 Days, #30 VIAL Prov:MAN CASTILLO MD 07/02/21 Diclofenac Sodium (Voltaren Arthritis Pain) 20 Gm Gel..gram., 1 LETTY TP BID, #20 GM Prov:ZELDA ESPINOZA APRN 06/23/21 Gabapentin (GABAPENTIN ) 100 Mg Capsule, 100 MG PO TID for NEUROGENIC PAIN, #21 CAP Prov:ZELDA ESPINOZA APRN 06/23/21 Lisinopril (LISINOPRIL) 10 Mg Tablet, 10 MG PO DAILY for htn for 90 Days, #90 TAB Prov:CASTLE,NIAL K III DO 01/25/21 Carvedilol (CARVEDILOL ) 12.5 Mg Tablet, 12.5 MG PO BIDWMEALS for htn, #90 TAB Prov:CASTLE,NIAL K III DO 01/25/21 Atorvastatin Calcium (ATORVASTATIN CALCIUM) 20 Mg Tablet, 20 MG PO QHS for hld for 90 Days, #90 TAB Prov:CASTLE,NIAL K III DO 01/25/21 Hydrocodone/Apap 5-325 (NORCO 5-325 TABLET) 1 Each Tablet, 1 TAB PO PRN Q6HRS PRN for PAIN, #30 TAB Prov:LEVI CHOWDARY DO 09/24/16 Reported Medications Oxybutynin Chloride (OXYBUTYNIN CHLORIDE) 5 Mg Tablet, 1 TAB PO DAILY for , #60 TAB 11 Refills 01/23/21 Aspirin (ASPIRIN) 325 Mg Tablet, 1 TAB PO DAILY for heart, #30 TAB 5 Refills 06/30/20 Insulin Glargine,Hum.rec.anlog (LANTUS SOLOSTAR) 100 Unit/1 Ml Insuln.pen, 12 UNIT SQ QHS for dm, #15 ML 5 Refills 12/04/17 Discontinued Reported Medications Amlodipine Besylate (AMLODIPINE BESYLATE) 5 Mg Tablet, 5 MG PO BID for htn, TAB 06/30/20 Metformin Hcl (METFORMIN HCL) 500 Mg Tablet, 500 MG PO BIDWMEALS for ANTI- DIABETIC, TAB 0 Refills 12/04/17 Discontinued Scripts Cefdinir (CEFDINIR) 300 Mg Capsule, 300 MG PO BID for Leg Cellulitis for 5 Days, #10 CAP Prov:SHAMAR DUVALL MD 07/04/20 MAN CASTILLO MD Jul 02, 2021 09:40
[2021-07-02 11:00] VITALS: BP 133/52
[2021-07-02] MEDS ORDERED: HYDR-2761 PO (11:13)
--- NOTE | 2021-07-02 11:15 | PDOC3 ---
Discharge Summary Visit Information Date of Admission: Jun 27, 2021 Date of Discharge: Jul 02, 2021 Final Diagnosis Problems Medical Problems: (1) Fall Status: Acute (2) Right knee DJD Status: Acute (3) Right knee pain Status: Acute Brief Hospital Course Allergies Allergies Coded Allergies Type Severity Reaction Last Updated Verified No Known Drug Allergies 06/27/21 No Vital Signs Vital Signs Date Time Temp Pulse Resp B/P (MAP) Pulse Ox O2 Delivery O2 Flow Rate FiO2 07/02/21 08:58 58 166/57 07/02/21 07:00 97.5 16 96 Room Air 97.5 Lab Results Laboratory Tests Test 06/30/21 11:47 06/30/21 16:30 06/30/21 20:33 07/01/21 07:50 Glucose (Fingerstick) 176 mg/dL (70-99) 189 mg/dL (70-99) 152 mg/dL (70-99) 144 mg/dL (70-99) Test 07/01/21 11:52 07/01/21 12:31 07/01/21 17:28 07/01/21 21:29 Glucose (Fingerstick) 183 mg/dL (70-99) 196 mg/dL (70-99) 172 mg/dL (70-99) 158 mg/dL (70-99) Test 07/02/21 07:52 07/02/21 11:08 Glucose (Fingerstick) 138 mg/dL (70-99) 259 mg/dL (70-99) Laboratory Tests Test 07/01/21 11:52 07/01/21 12:31 07/01/21 17:28 07/01/21 21:29 Glucose (Fingerstick) 183 mg/dL (70-99) 196 mg/dL (70-99) 172 mg/dL (70-99) 158 mg/dL (70-99) Test 07/02/21 07:52 07/02/21 11:08 Glucose (Fingerstick) 138 mg/dL (70-99) 259 mg/dL (70-99) Brief Hospital Course Ms. Casanova is a 86 old [sex] who presented with [ ] Discharge Information Scheduled Aspirin (Aspirin) 325 Mg Tablet, 1 TAB PO DAILY for heart, #30 Ref 5 (Reported) Entered as Reported by: DIANNE COVARRUBIAS on 06/30/20 1647 Atorvastatin Calcium (Atorvastatin Calcium) 20 Mg Tablet, 20 MG PO QHS for hld for 90 Days, #90 Prescribed by: SARTHAK BEVERLY on 01/25/21 1041 Carvedilol (Carvedilol ) 12.5 Mg Tablet, 12.5 MG PO BIDWMEALS for htn, #90 Prescribed by: SARTHAK BEVERLY on 01/25/21 1041 Last Action: Continued on 06/27/212145 by SANG LYONS Cholecalciferol (Vitamin D3) (Vitamin D3 ) 125 Mcg Capsule, 125 MCG PO DAILY for SUPPLEMENT for 30 Days, #30 Ref 2 5,000 UNITS = 125 MCG Prescribed by: MAN CASTILLO MD on 07/02/21 1113 Diclofenac Sodium (Voltaren Arthritis Pain) 20 Gm Gel..gram., 1 LETTY TP BID, #20 Prescribed by: Theodora Gillis APRN on 06/23/21 1740 Gabapentin (Gabapentin ) 100 Mg Capsule, 100 MG PO TID for NEUROGENIC PAIN, #21 Prescribed by: Theodora Gillis APRN on 06/23/21 1740 Insulin Glargine,Hum.rec.anlog (Lantus Solostar) 100 Unit/1 Ml Insuln.pen, 12 UNIT SQ QHS for dm, #15 Ref 5 (Reported) Entered as Reported by: VERONICA MOHR on 12/04/17 2158 Insulin Lispro (Humalog) 100 Unit/1 Ml Vial, 0 SQ SSI for dm for 30 Days, #30 Prescribed by: MAN CASTILLO MD on 07/02/21 0939 Lisinopril (Lisinopril) 10 Mg Tablet, 10 MG PO DAILY for htn for 90 Days, #90 Prescribed by: SARTHAK BEVERLY on 01/25/21 1041 Last Action: Continued on 06/27/212145 by SANG LYONS Oxybutynin Chloride (Oxybutynin Chloride) 5 Mg Tablet, 1 TAB PO DAILY for , #60 Ref 11 (Reported) Entered as Reported by: DALIA SAHU RN on 01/23/21 0730 Scheduled PRN Hydrocodone Bit/Acetaminophen (Hydrocodone-Apap 5-325 ) 1 Tab Tablet, 1 TAB PO PRN Q6HRS PRN for PAIN for 6 Days, #24 Ref 0 Prescribed by: MAN CASTILLO MD on 07/02/21 1114 Discontinued Medications Amlodipine Besylate (Amlodipine Besylate) 5 Mg Tablet, 5 MG PO BID for htn, (Reported) Entered as Reported by: DIANNE COVARRUBIAS on 06/30/20 1647 Cefdinir (Cefdinir) 300 Mg Capsule, 300 MG PO BID for Leg Cellulitis for 5 Days, #10 Prescribed by: SHAMAR DUVALL MD on 07/04/20 1143 Metformin Hcl (Metformin Hcl) 500 Mg Tablet, 500 MG PO BIDWMEALS for ANTI- DIABETIC, Ref 0 (Reported) Entered as Reported by: VERONICA MOHR on 12/04/172157 Last Action: Continued on 06/27/212145 by SANG LYONS Justicifation of Admission Dx: Justifications for Admission: Justification of Admission Dx: N/A Sepsis: Bacteremia MAN CASTILLO MD Jul 02, 2021 11:15
--- NOTE | 2021-07-02 16:38 | RAD ---
2 view left ankle study Clinical indications: Fall prior to hospitalization. Bruising and pain noted. FINDINGS: No acute fracture or dislocation or lytic process is seen. The mortise ankle joint is intac t. Plantar and posterior spurs of the calcaneus are seen. Calcification of the plantar aponeurosis is seen which may be secondary to plantar fasciitis. IMPRESSION: No acute fracture. Electronically signed by: Anthony Ni MD (07/02/2021 4:36 PM) [id number]
== END 2021-07-02 14:30 | DRG 604 ==
LOC: ER 10:08 → ED HOLD 12:57 → 4 NORTH 15:35
PROVIDERS: ADMIT Internal Medicine; ATTEND Internal Medicine
DX: S80.01XA Contusion of right knee, initial encounter (principal); N17.0 Acute kidney failure with tubular necrosis; E44.0 Moderate protein-calorie malnutrition; L03.119 Cellulitis of unspecified part of limb; E11.22 Type 2 diabetes mellitus with diabetic chronic kidney disease; E11.42 Type 2 diabetes mellitus with diabetic polyneuropathy; E53.8 Deficiency of other specified B group vitamins; E55.9 Vitamin D deficiency, unspecified; E66.9 Obesity, unspecified; E78.5 Hyperlipidemia, unspecified; G89.29 Other chronic pain; I12.9 Hypertensive chronic kidney disease with stage 1 through stage 4 chronic kidney disease, or unspecified chronic kidney disease; M17.0 Bilateral primary osteoarthritis of knee; N18.30 Chronic kidney disease, stage 3 unspecified; R29.6 Repeated falls; W01.0XXA Fall on same level from slipping, tripping and stumbling without subsequent striking against object, initial encounter; Y93.01 Activity, walking, marching and hiking; Z79.4 Long term (current) use of insulin; Z79.82 Long term (current) use of aspirin; Z79.899 Other long term (current) drug therapy; Z96.652 Presence of left artificial knee joint; Z98.51 Tubal ligation status; Z68.32 Body mass index [BMI] 32.0-32.9, adult
CPT/HCPCS: 36415; 73564; 73600; 80048; 80053; 80307; 82306; 82607; 82962; 83735; 84100; 85025; 87426; J0780; J1815; J2405; U0003; U0005; 97110-GP; 97530-GP; 97535-GO; 99285-25; G0378

== ENCOUNTER 2021-07-29 03:43 | Inpatient (IN) | payer MEDICARE ==
[~2021-07-29] VITALS: Ht 165.1 cm; Wt 103.9 kg
[2021-07-29] MEDS: IV NORMAL SALINE 1000ML BAG 1,000 ML IV SCH ×2 (01:30→09:00)
[~2021-07-29 03:43] MED LIST changes: +CHOL5000 PO; +HYDR-2761 PO
--- NOTE | 2021-07-29 04:40 | PHYS DOC ---
Past Medical History Past Medical History: Arthritis, Diabetes-Type II, Gallstones, Hypertension, Other Additional Past Medical Histor: gall stones, LE CELLULITIS Past Surgical History: Cholecystectomy, Knee Replacement, Tubal ligation Additional Past Surgical Histo: Lt knee replacement Smoking Status: Never Smoker Alcohol Use: None Drug Use: None General Adult EDM: Chief Complaint: WEAKNESS/GENERALIZED HPI: HPI: 86-year-old female presents to the emergency department complaining of right knee weakness for the last 3 years. Her family states that they cannot take care of her at home and perform her activities of daily living because she has haim alexander more weak gradually over the last several days. She has a few family members who routinely take care of her at a private residence, daughter is here with her today and states that they cannot take care of her at home and they need her placed in a nursing facility. The patient complains of some burning upon urination, right knee weakness without any episodes of trauma or injuries, but denies further symptoms. The patient denies nausea, vomiting, fever, chills, chest pain, shortness of breath, abdominal pain, cough, recent trauma, or any other complaints. Review of Systems: Review of Systems: ROS is otherwise negative except for what was mentioned in the HPI Heart Score: C/O Chest Pain: No Allergies: Allergies: Allergies Coded Allergies Type Severity Reaction Last Updated Verified No Known Drug Allergies 06/27/21 No Physical Exam: PE: Constitutional: No acute distress, non-toxic appearance. HENT: Atraumatic, bilateral external ears normal, nose normal. Eyes: PERRLA, EOMI, conjunctiva normal, no discharge. Neck: Normal range of motion, supple, no stridor. Cardiovascular: Heart rate regular rhythm. 2+ radial pulses Abdomen: Soft, no tenderness Skin: Warm, dry. Extremities: No tenderness, no cyanosis, ROM intact, minimal right knee tenderness, no deformity. Chronic appearing lymphedema bilaterally Neurologic: Alert and oriented X 3, normal motor function, normal sensory function, no focal deficits noted. Non ataxic gait. GCS 15. Psychologic: Affect normal, judgment normal, mood normal. Current Patient Data: Vital Signs: Vital Signs Date Time Temp Pulse Resp B/P (MAP) Pulse Ox O2 Delivery O2 Flow Rate FiO2 07/29/21 04:09 98.1 72 16 175/76 (109) 100 Room Air 98.1 Radiology/Procedures: Radiology/Procedures: PROCEDURE: KNEE RIGHT 3V History: Right knee pain Comparison: 06/27/2021. Findings: No acute fracture or malalignment. 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 Probable trace joint effusion. Similar vascular calcifications. Impression: No acute osseous process. 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 Electronically signed by: Karl Singh DO (07/29/2021 5:05 AM) Course & Med Decision Making: Course & Med Decision Making Patient's family cannot take care of her and the patient states that she cannot take care of herself, it is unsafe to discharge her home in the situation where somebody does not feel comfortable taking care of this patient. We will admit her for observation for social work consult and possible placement. Departure Departure Impression: Primary Impression: Weakness Disposition: 09 ADMITTED INPATIENT Admitting Physician: JULISA (Kailey) Condition: STABLE (Seligman) Referrals: TIANA MANZO MD (PCP) SHIRLENE FLOYD DO Jul 29, 2021 04:40
--- NOTE | 2021-07-29 05:08 | RAD ---
History: Right knee pain Comparison: 06/27/2021. Findings: No acute fracture or malalignment. Similar moderate to severe tricompartmental osteoarthrit is most pronounced in the medial and patellofemoral compartments. Probable trace joint effusion. Diya lar vascular calcifications. Impression: No acute osseous process. 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 Electronically signed by: Karl Singh DO (07/29/2021 5:05 AM) [facility]
[2021-07-29 05:09] LABS: BILIRUBIN,URINE NEGATIVE (NEG); CLARITY,URINE CLEAR; COLOR,URINE YELLOW; NITRITE,URINE NEGATIVE (NEG); PROTEIN,URINE 100 mg/dL (NEG-TRACE); UROBILINOGEN,URINE 0.2 mg/dL (0.2 mg/dL)
[2021-07-29 05:20] LABS: BASO # 0.1 x10^3/uL (0.0-0.2); BASO % 1 % (0-3); EOS # 0.2 x10^3/uL (0.0-0.7); EOS % 2 % (0-3); HEMATOCRIT 31.6 % (36.0-47.0); HEMOGLOBIN 10.5 g/dL (12.0-15.5); LYMPH # 1.3 x10^3/uL (1.0-4.8); LYMPH % 14 % (24-48); MEAN CORPUSCULAR HEMOGLOBIN 30 pg (25-35); MEAN CORPUSCULAR HGB CONC 33 g/dL (31-37); MEAN CORPUSCULAR VOLUME 91 fL (79-100); MONO % 11 % (0-9); NEUT # 6.8 x10^3/uL (1.8-7.7); NEUT % 73 % (31-73); PLATELET COUNT 208 x10^3/uL (140-400); RED BLOOD COUNT 3.48 x10^6/uL (3.50-5.40); RED CELL DISTRIBUTION WIDTH 14.7 % (11.5-14.5); WHITE BLOOD COUNT 9.4 x10^3/uL (4.0-11.0)
[2021-07-29 05:28] LABS: BACTERIA,URINE MODERATE /HPF (0-FEW); WBC,URINE >40 /HPF (0-4)
[2021-07-29 05:29] LABS: YEAST,URINE PRESENT /HPF
[2021-07-29 06:09] LABS: CALCIUM 8.7 mg/dL (8.5-10.1); CREATININE 1.1 mg/dL (0.6-1.0); GFR 47.3; POTASSIUM 4.4 mmol/L (3.5-5.1)
[2021-07-29] MEDS ORDERED: ACETAMINOPHEN 325 MG TABLET. PO PRN (08:45)
[2021-07-29] MEDS ORDERED: PROCHLORPERAZINE 10 MG/2 ML VIAL. IV PRN (08:45)
[2021-07-29] MEDS ORDERED: DEXTROSE 50% 25 GM / 50ML DISP.SYRIN. IV PRN (08:45)
[2021-07-29] MEDS ORDERED: ONDANSETRON PF 4 MG/2 ML VIAL. IVP PRN (08:45)
[2021-07-29] MEDS ORDERED: DOCUSATE SODIUM 100 MG CAPSULE. PO PRN (08:45)
[2021-07-29] MEDS ORDERED: SENNOSIDES 8.6 MG TABLET PO PRN (08:45)
--- NOTE | 2021-07-29 08:50 | PDOC1 ---
History and Physical Date of Service: DOS: DATE: 07/29/21 TIME: 08:37 Chief Complaint: Chief Complain: Generalized weakness and multiple other complaints History of Present Illness: HPI: History obtained from chart review and discussion with the ED physician 86-year-old female with past medical history of diabetes mellitus type 2, hypertension, osteoarthritis with right knee weakness who complains of generalized weakness that is worsened over the past several days. Family brought her in today because they were unable to help her with her daily activities. Patient does live at home with her daughter and son. Apparently they do want to consider to go to a nursing facility for better care. Beside this point, patient does also have burning upon urination and also right knee weakness and some pain during ambulation. Denies nausea vomiting, fevers, chills, chest pain, shortness of breath, abdominal pain, cough, hematuria or bloody stools or diarrhea. Past Medical/Surgical History: PMH/PSH: Past Medical History: Arthritis, Diabetes-Type II, Gallstones, Hypertension, gall stones, LE CELLULITIS Past Surgical History: Cholecystectomy, Knee Replacement, Tubal ligation, Lt knee replacement Allergies: Allergies: Coded Allergies: No Known Drug Allergies (Unverified , 06/27/21) Family History: Family History: Reviewed with no relevant findings Social History: Social History: Smoking Status: Never Smoker Alcohol Use: None Drug Use: None Current Medications: Current Medications Active Scripts Active Hydrocodone-Apap 5-325 (Hydrocodone Bit/Acetaminophen) 1 Tab Tablet 1 Tab PO PRN Q6HRS PRN 6 Days Vitamin D3 (Vitamin D) 125 Mcg Capsule 125 Mcg PO DAILY 30 Days 5,000 UNITS = 125 MCG Humalog (Insulin Lispro) 100 Unit/1 Ml Vial 0 SQ SSI 30 Days Voltaren Arthritis Pain (Diclofenac Sodium) 20 Gm Gel..gram. 1 Jay TP BID Gabapentin (Gabapentin) 100 Mg Capsule 100 Mg PO TID Lisinopril 10 Mg Tablet 10 Mg PO DAILY 90 Days Carvedilol (Carvedilol) 12.5 Mg Tablet 12.5 Mg PO BIDWMEALS Atorvastatin Calcium 20 Mg Tablet 20 Mg PO QHS 90 Days Reported Oxybutynin Chloride 5 Mg Tablet 1 Tab PO DAILY Aspirin 325 Mg Tablet 1 Tab PO DAILY Lantus Solostar (Insulin Glargine,Hum.rec.anlog) 100 Unit/1 Ml Insuln.pen 12 Unit SQ QHS ROS: Review of Systems Review of System REVIEW OF SYSTEMS: GENERAL: Denies weakness SKIN: No bruising, hair changes or rashes. EYES: No blurred, double or loss of vision. NOSE AND THROAT: No history of nosebleeds, hoarseness or sore throat. HEART: No history of palpitations, chest pain or shortness of breath on exertion. LUNGS: Denies cough, hemoptysis, wheezing or shortness of breath. GASTROINTESTINAL: Denies changes in appetite, nausea, vomiting, diarrhea or constipation. GENITOURINARY: No history of frequency, urgency, hesitancy or nocturia. NEUROLOGIC: Denies history of numbness, tingling, or tremor. PSYCHIATRIC: No history of panic, anxiety or depression. ENDOCRINE: No history of heat or cold intolerance, polyuria or polydipsia. EXTREMITIES: Denies joint pain, pain on walking or stiffness. Physical Exam: Vital Signs: Vital Signs Date Time Temp Pulse Resp B/P (MAP) Pulse Ox O2 Delivery O2 Flow Rate FiO2 07/29/21 06:15 70 16 199/75 (116) 99 Room Air 07/29/21 04:09 98.1 98.1 Physcial Exam: General: Well developed, well nourished, no acute distress, well appearing HEENT: Pupils equally round and reactive to light, EOMI, no discharge, normal conjunctiva Neck: Supple, no nuchal rigidity, no JVD, trachea midline, no tenderness Cardiac: RRR, no murmurs, no gallops, no rubs Chest/Lungs: CTAB, no wheeze, no rhonchi, no crackles Abdomen: Obese, soft, non-distended, no guarding, no peritoneal signs, non- tender Back: No tenderness Extremities: no edema, pulses intact, non-tender,capillary refill <3 sec bilateral upper and lower extremities, Neuro: Alert and oriented x 4, no focal deficits, normal speech Labs: Labs: Laboratory Tests Test 07/29/21 05:00 07/29/21 05:10 07/29/21 05:50 Urine Collection Type Void Urine Color Yellow Urine Clarity Clear Urine pH 6.0 (<5.0-8.0) Urine Specific Turrell 1.010 (1.000-1.030) Urine Protein 100 mg/dL (NEG-TRACE) Urine Glucose (UA) Negative mg/dL (NEG) Urine Ketones (Stick) Trace mg/dL (NEG) Urine Blood Trace (NEG) Urine Nitrite Negative (NEG) Urine Bilirubin Negative (NEG) Urine Urobilinogen Dipstick 0.2 mg/dL (0.2 mg/dL) Urine Leukocyte Esterase Trace (NEG) Urine RBC 6-10 /HPF (0-2) Urine WBC >40 /HPF (0-4) Urine Squamous Epithelial Cells Mod /LPF Urine Bacteria Moderate /HPF (0-FEW) Urine Mucus Slight /LPF Urine Yeast Present /HPF White Blood Count 9.4 x10^3/uL (4.0-11.0) Red Blood Count 3.48 x10^6/uL (3.50-5.40) Hemoglobin 10.5 g/dL (12.0-15.5) Hematocrit 31.6 % (36.0-47.0) Mean Corpuscular Volume 91 fL (79-100) Mean Corpuscular Hemoglobin 30 pg (25-35) Mean Corpuscular Hemoglobin Concent 33 g/dL (31-37) Red Cell Distribution Width 14.7 % (11.5-14.5) Platelet Count 208 x10^3/uL (140-400) Neutrophils (%) (Auto) 73 % (31-73) Lymphocytes (%) (Auto) 14 % (24-48) Monocytes (%) (Auto) 11 % (0-9) Eosinophils (%) (Auto) 2 % (0-3) Basophils (%) (Auto) 1 % (0-3) Neutrophils # (Auto) 6.8 x10^3/uL (1.8-7.7) Lymphocytes # (Auto) 1.3 x10^3/uL (1.0-4.8) Monocytes # (Auto) 1.0 x10^3/uL (0.0-1.1) Eosinophils # (Auto) 0.2 x10^3/uL (0.0-0.7) Basophils # (Auto) 0.1 x10^3/uL (0.0-0.2) Sodium Level 139 mmol/L (136-145) Potassium Level 4.4 mmol/L (3.5-5.1) Chloride Level 104 mmol/L (98-107) Carbon Dioxide Level 25 mmol/L (21-32) Anion Gap 10 (6-14) Blood Urea Nitrogen 18 mg/dL (7-20) Creatinine 1.1 mg/dL (0.6-1.0) Estimated GFR (Cockcroft-Gault) 47.3 Glucose Level 106 mg/dL (70-99) Calcium Level 8.7 mg/dL (8.5-10.1) Laboratory Tests Test 07/29/21 05:00 07/29/21 05:10 07/29/21 05:50 Urine Collection Type Void Urine Color Yellow Urine Clarity Clear Urine pH 6.0 (<5.0-8.0) Urine Specific Turrell 1.010 (1.000-1.030) Urine Protein 100 mg/dL (NEG-TRACE) Urine Glucose (UA) Negative mg/dL (NEG) Urine Ketones (Stick) Trace mg/dL (NEG) Urine Blood Trace (NEG) Urine Nitrite Negative (NEG) Urine Bilirubin Negative (NEG) Urine Urobilinogen Dipstick 0.2 mg/dL (0.2 mg/dL) Urine Leukocyte Esterase Trace (NEG) Urine RBC 6-10 /HPF (0-2) Urine WBC >40 /HPF (0-4) Urine Squamous Epithelial Cells Mod /LPF Urine Bacteria Moderate /HPF (0-FEW) Urine Mucus Slight /LPF Urine Yeast Present /HPF White Blood Count 9.4 x10^3/uL (4.0-11.0) Red Blood Count 3.48 x10^6/uL (3.50-5.40) Hemoglobin 10.5 g/dL (12.0-15.5) Hematocrit 31.6 % (36.0-47.0) Mean Corpuscular Volume 91 fL (79-100) Mean Corpuscular Hemoglobin 30 pg (25-35) Mean Corpuscular Hemoglobin Concent 33 g/dL (31-37) Red Cell Distribution Width 14.7 % (11.5-14.5) Platelet Count 208 x10^3/uL (140-400) Neutrophils (%) (Auto) 73 % (31-73) Lymphocytes (%) (Auto) 14 % (24-48) Monocytes (%) (Auto) 11 % (0-9) Eosinophils (%) (Auto) 2 % (0-3) Basophils (%) (Auto) 1 % (0-3) Neutrophils # (Auto) 6.8 x10^3/uL (1.8-7.7) Lymphocytes # (Auto) 1.3 x10^3/uL (1.0-4.8) Monocytes # (Auto) 1.0 x10^3/uL (0.0-1.1) Eosinophils # (Auto) 0.2 x10^3/uL (0.0-0.7) Basophils # (Auto) 0.1 x10^3/uL (0.0-0.2) Sodium Level 139 mmol/L (136-145) Potassium Level 4.4 mmol/L (3.5-5.1) Chloride Level 104 mmol/L (98-107) Carbon Dioxide Level 25 mmol/L (21-32) Anion Gap 10 (6-14) Blood Urea Nitrogen 18 mg/dL (7-20) Creatinine 1.1 mg/dL (0.6-1.0) Estimated GFR (Cockcroft-Gault) 47.3 Glucose Level 106 mg/dL (70-99) Calcium Level 8.7 mg/dL (8.5-10.1) Images: Images PROCEDURE: KNEE RIGHT 3V History: Right knee pain Comparison: 06/27/2021. Findings: No acute fracture or malalignment. Similar moderate to severe tricompa rtmental osteoarthritis most pronounced in the medial and patellofemoral compartments. Probable trace joint effusion. Similar vascular calcifications. Impression: No acute osseous process. 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 Assessment/Plan Assessment/Plan Hypertensive urgency Generalized weakness Acute cystitis Anemia of chronic disease, normocytic History of hypertension History of diabetes mellitus type 2 History of osteoarthritis, especially of the right knee Admit to hospitalist for further management Resume home antihypertensive medications Continue R ISS and Accu-Cheks Continue empiric IV antibiotics Pending urine cultures Social work consult PT OT evaluation Labetalol IV as needed for systolic blood pressure greater than 180 Lovenox for DVT prophylaxis ADA diet CODE STATUS FULL Discussed with RN and SW Disposition inpatient management as above DPOA: Daughter Justifications for Admission Other Justification Multiple falls and weakness VANESSA RAMOS MD Jul 29, 2021 08:49
[2021-07-29] MEDS: hydrALAZINE 20 MG/ML VIAL. IVP PRN (08:58)
[2021-07-29] MEDS: cefTRIAXone IV Push 1 GM VIAL. IVP SCH (08:59)
[2021-07-29] MEDS: ENOXAPARIN 40 MG/0.4 ML SYRINGE. SQ SCH (08:59)
[2021-07-29] MEDS ORDERED: hydrALAZINE 20 MG/ML VIAL. IVP PRN (09:00)
[2021-07-29 12:00] VITALS: BP 132/57
[2021-07-29] MEDS: INSULIN LISPRO 300 UNITS/3 ML VIAL. SQ SCH ×2 (12:00→17:00)
[2021-07-29 15:00] VITALS: BP 162/54
[2021-07-29] MEDS ORDERED: METF500T16 PO (18:40)
[2021-07-29] MEDS ORDERED: INSU100I13 SQ (18:40)
[2021-07-29 19:00] VITALS: BP 158/49
[2021-07-29] MEDS: DICLOFENAC SODIUM 1% TOPICAL GEL 100GM TUBE. TP SCH (21:00)
[2021-07-29] MEDS: GABAPENTIN 100 MG CAPSULE. PO SCH (22:48)
[2021-07-29] MEDS: INSULIN GLARGINE SYRINGE. SQ SCH (22:49)
[2021-07-29 23:00] VITALS: BP 170/56
[2021-07-30] MEDS: IV NORMAL SALINE 1000ML BAG 1,000 ML IV SCH ×2 (04:45→11:43)
[2021-07-30 06:57] LABS: CALCIUM 8.4 mg/dL (8.5-10.1); CREATININE 1.1 mg/dL (0.6-1.0); GFR 47.3; MAGNESIUM 2.2 mg/dL (1.8-2.4); PHOSPHORUS 3.8 mg/dL (2.6-4.7)
[2021-07-30 07:00] VITALS: BP 160/62
[2021-07-30 07:19] LABS: BASO # 0.1 x10^3/uL (0.0-0.2); BASO % 1 % (0-3); EOS # 0.2 x10^3/uL (0.0-0.7); EOS % 3 % (0-3); HEMATOCRIT 29.2 % (36.0-47.0); HEMOGLOBIN 9.8 g/dL (12.0-15.5); LYMPH # 1.6 x10^3/uL (1.0-4.8); LYMPH % 19 % (24-48); MEAN CORPUSCULAR HEMOGLOBIN 30 pg (25-35); MEAN CORPUSCULAR HGB CONC 34 g/dL (31-37); MEAN CORPUSCULAR VOLUME 90 fL (79-100); MONO % 12 % (0-9); NEUT # 5.4 x10^3/uL (1.8-7.7); NEUT % 65 % (31-73); PLATELET COUNT 208 x10^3/uL (140-400); RED BLOOD COUNT 3.23 x10^6/uL (3.50-5.40); RED CELL DISTRIBUTION WIDTH 14.6 % (11.5-14.5); WHITE BLOOD COUNT 8.3 x10^3/uL (4.0-11.0)
[2021-07-30] MEDS: INSULIN LISPRO 300 UNITS/3 ML VIAL. SQ SCH ×3 (08:00→17:50)
[2021-07-30] MEDS: metFORMIN 500 MG TABLET PO SCH ×2 (08:30→17:46)
[2021-07-30] MEDS: OXYBUTYNIN CHLORIDE 5 MG TABLET PO SCH (08:30)
[2021-07-30] MEDS: ASPIRIN 325 MG TABLET PO SCH (08:30)
[2021-07-30] MEDS: GABAPENTIN 100 MG CAPSULE. PO SCH ×3 (08:30→21:20)
[2021-07-30] MEDS: DICLOFENAC SODIUM 1% TOPICAL GEL 100GM TUBE. TP SCH ×2 (08:31→21:00)
[2021-07-30] MEDS: ENOXAPARIN 40 MG/0.4 ML SYRINGE. SQ SCH (08:31)
[2021-07-30] MEDS: cefTRIAXone IV Push 1 GM VIAL. IVP SCH (09:59)
[2021-07-30 11:08] VITALS: BP 156/53
[2021-07-30] MEDS: LACTOBACILLUS RHAMNOSUS GG 1 CAPSULE. PO SCH ×2 (12:30→21:20)
--- NOTE | 2021-07-30 13:08 | PDOC ---
[facility] PROGRESS NOTE Date of Service DOS: DATE: 07/30/21 TIME: 13:02 Chief Complaint Chief Complaint Hypertensive urgency Generalized weakness Acute cystitis Anemia of chronic disease, normocytic History of hypertension History of diabetes mellitus type 2 History of osteoarthritis, especially of the right knee Admit to hospitalist for further management Resume home antihypertensive medications Continue R ISS and Accu-Cheks Continue empiric IV antibiotics Pending urine cultures Social work consult PT OT evaluation Labetalol IV as needed for systolic blood pressure greater than 180 Lovenox for DVT prophylaxis ADA diet CODE STATUS FULL Discussed with RN and SW Disposition inpatient management as above DPOA: Daughter History of Present Illness History of Present Illness 86-year-old female with past medical history of diabetes mellitus type 2, hypertension, osteoarthritis with right knee weakness who complains of generalized weakness that is worsened over the past several days. Family brought her in today because they were unable to help her with her daily activities. Patient does live at home with her daughter and son. Apparently they do want to consider to go to a nursing facility for better care. Beside this point, patient does also have burning upon urination and also right knee weakness and some pain during ambulation. Denies nausea vomiting, fevers, chills, chest pain, shortness of breath, abdominal pain, cough, hematuria or bloody stools or diarrhea. 07/30/2021: Patient seen and evaluated. No acute events overnight. She worked with PT today who recommended fdc with rolling walker. We will continue Rocephin daily for acute cystitis; urine cultures pending. Anticipate discharge to SNU in the next day or so. Will add chlorthalidone for better blood pressure control. Vitals/I&O Vitals/I&O: Vital Signs Date Time Temp Pulse Resp B/P (MAP) Pulse Ox O2 Delivery O2 Flow Rate FiO2 07/30/21 11:08 98.3 64 16 156/53 (87) 95 Room Air 98.3 I & O 07/29/21 07/29/21 07/30/21 15:00 23:00 07:00 Output Total 700 ml 300 ml Balance -700 ml -300 ml Physical Exam General: Alert, No acute distress Heart: Regular rate Lungs: Clear, Other Abdomen: Soft, No tenderness Extremities: No clubbing, No cyanosis Skin: No rashes, No breakdown Labs Labs: Laboratory Tests Test 07/29/21 17:55 07/29/21 21:17 07/30/21 05:20 07/30/21 07:51 Glucose (Fingerstick) 153 mg/dL (70-99) 154 mg/dL (70-99) 97 mg/dL (70-99) White Blood Count 8.3 x10^3/uL (4.0-11.0) Red Blood Count 3.23 x10^6/uL (3.50-5.40) Hemoglobin 9.8 g/dL (12.0-15.5) Hematocrit 29.2 % (36.0-47.0) Mean Corpuscular Volume 90 fL (79-100) Mean Corpuscular Hemoglobin 30 pg (25-35) Mean Corpuscular Hemoglobin Concent 34 g/dL (31-37) Red Cell Distribution Width 14.6 % (11.5-14.5) Platelet Count 208 x10^3/uL (140-400) Neutrophils (%) (Auto) 65 % (31-73) Lymphocytes (%) (Auto) 19 % (24-48) Monocytes (%) (Auto) 12 % (0-9) Eosinophils (%) (Auto) 3 % (0-3) Basophils (%) (Auto) 1 % (0-3) Neutrophils # (Auto) 5.4 x10^3/uL (1.8-7.7) Lymphocytes # (Auto) 1.6 x10^3/uL (1.0-4.8) Monocytes # (Auto) 1.0 x10^3/uL (0.0-1.1) Eosinophils # (Auto) 0.2 x10^3/uL (0.0-0.7) Basophils # (Auto) 0.1 x10^3/uL (0.0-0.2) Sodium Level 140 mmol/L (136-145) Potassium Level 4.0 mmol/L (3.5-5.1) Chloride Level 108 mmol/L (98-107) Carbon Dioxide Level 24 mmol/L (21-32) Anion Gap 8 (6-14) Blood Urea Nitrogen 18 mg/dL (7-20) Creatinine 1.1 mg/dL (0.6-1.0) Estimated GFR (Cockcroft-Gault) 47.3 Glucose Level 103 mg/dL (70-99) Calcium Level 8.4 mg/dL (8.5-10.1) Phosphorus Level 3.8 mg/dL (2.6-4.7) Magnesium Level 2.2 mg/dL (1.8-2.4) Test 07/30/21 11:24 Glucose (Fingerstick) 138 mg/dL (70-99) Assessment and Plan Assessmemt and Plan Problems Medical Problems: (1) Weakness Status: Acute Comment Review of Relevant I have reviewed the following items noam (where applicable) has been applied. Medications: Current Medications Medications (Trade) Dose Ordered Sig/[place] Route PRN Reason Start Time Stop Time Status Last Admin Dose Admin Aspirin (Rebeka Aspirin) 325 mg DAILY PO 07/30/21 09:00 07/30/21 08:30 Gabapentin (Neurontin) 100 mg TID PO 07/29/21 21:00 07/30/21 08:30 Metformin HCl (Glucophage) 500 mg BIDWMEALS PO 07/30/21 08:00 07/30/21 08:30 Oxybutynin Chloride (Ditropan) 5 mg DAILY PO 07/30/21 09:00 07/30/21 08:30 Insulin Glargine (Lantus Syringe) 14 unit QHS SQ 07/29/21 21:00 07/29/21 22:49 Lactobacillus Rhamnosus (Culturelle) 1 cap BID PO 07/30/21 12:00 07/30/21 12:30 Justifications for Admission Other Justification Multiple falls and weakness SHAMAR DUVALL MD Jul 30, 2021 13:08
--- NOTE | 2021-07-30 13:13 | NUR ---
ROSE MARY following. Discussed with RN, pt from home with family, room air, ada diet. Pt recently discharged from [facility], family brought pt back to [facility] due to pt not being able to get up at home, and urinating on herself. ROSE MARY spoke with pt's son, Chris - he reported pt was doing great after leaving [facility], then he took her for her second COVID shot on Friday and then Friday and Friday pt could not get up etc and just wanted to sleep all day. ROSE MARY spoke with Audrey at [facility], she wants to see therapy work with pt again and see how she does - unsure at this time if pt has any skilled need. RN notified. Pt will need a COVID test for placement. Pt's son reported he will take pt home if she is able to get up and get to the bathroom. Pt is alone at home for a few hours a day. Family declined home health upon discharge from [facility]. ROSE MARY will continue to follow.
[2021-07-30 15:00] VITALS: BP 153/51
[2021-07-30 19:00] VITALS: BP 155/54
[2021-07-30] MEDS: INSULIN GLARGINE SYRINGE. SQ SCH (21:29)
[2021-07-30 23:00] VITALS: BP 123/63
[2021-07-31 04:39] LABS: BASO # 0.1 x10^3/uL (0.0-0.2); BASO % 1 % (0-3); EOS # 0.3 x10^3/uL (0.0-0.7); EOS % 4 % (0-3); HEMATOCRIT 30.4 % (36.0-47.0); HEMOGLOBIN 9.7 g/dL (12.0-15.5); LYMPH # 1.7 x10^3/uL (1.0-4.8); LYMPH % 19 % (24-48); MEAN CORPUSCULAR HEMOGLOBIN 29 pg (25-35); MEAN CORPUSCULAR HGB CONC 32 g/dL (31-37); MEAN CORPUSCULAR VOLUME 91 fL (79-100); MONO % 11 % (0-9); NEUT # 5.8 x10^3/uL (1.8-7.7); NEUT % 66 % (31-73); PLATELET COUNT 214 x10^3/uL (140-400); RED BLOOD COUNT 3.35 x10^6/uL (3.50-5.40); RED CELL DISTRIBUTION WIDTH 14.3 % (11.5-14.5); WHITE BLOOD COUNT 8.9 x10^3/uL (4.0-11.0)
[2021-07-31 05:02] LABS: CALCIUM 8.5 mg/dL (8.5-10.1); CREATININE 1.2 mg/dL (0.6-1.0); GFR 42.8; MAGNESIUM 2.1 mg/dL (1.8-2.4); POTASSIUM 4.3 mmol/L (3.5-5.1)
[2021-07-31 07:00] VITALS: BP 171/59
[2021-07-31] MEDS: INSULIN LISPRO 300 UNITS/3 ML VIAL. SQ SCH ×3 (08:00→17:00)
[2021-07-31] MEDS: DICLOFENAC SODIUM 1% TOPICAL GEL 100GM TUBE. TP SCH ×2 (08:24→21:00)
[2021-07-31] MEDS: GABAPENTIN 100 MG CAPSULE. PO SCH ×3 (08:43→20:47)
[2021-07-31] MEDS: CHLORTHALIDONE 25 MG TABLET. PO SCH (08:43)
[2021-07-31] MEDS: OXYBUTYNIN CHLORIDE 5 MG TABLET PO SCH (08:43)
[2021-07-31] MEDS: ASPIRIN 325 MG TABLET PO SCH (08:43)
[2021-07-31] MEDS: LACTOBACILLUS RHAMNOSUS GG 1 CAPSULE. PO SCH ×2 (08:43→20:47)
[2021-07-31] MEDS: metFORMIN 500 MG TABLET PO SCH ×2 (08:43→17:06)
[2021-07-31] MEDS: cefTRIAXone IV Push 1 GM VIAL. IVP SCH (08:44)
[2021-07-31] MEDS: ENOXAPARIN 40 MG/0.4 ML SYRINGE. SQ SCH (08:44)
--- NOTE | 2021-07-31 08:45 | NUR ---
Covid PCR swab collected and walked down to lab.
[2021-07-31 10:53] VITALS: BP 155/47
--- NOTE | 2021-07-31 12:54 | PDOC ---
[employer] PROGRESS NOTE Date of Service DOS: DATE: 07/31/21 TIME: 12:48 Chief Complaint Chief Complaint Hypertensive urgency Generalized weakness Acute cystitis Anemia of chronic disease, normocytic History of hypertension History of diabetes mellitus type 2 History of osteoarthritis, especially of the right knee Admit to hospitalist for further management Resume home antihypertensive medications Continue R ISS and Accu-Cheks Continue empiric IV antibiotics Pending urine cultures Social work consult PT OT evaluation Labetalol IV as needed for systolic blood pressure greater than 180 Lovenox for DVT prophylaxis ADA diet CODE STATUS FULL Discussed with RN and SW Disposition inpatient management as above DPOA: Daughter History of Present Illness History of Present Illness 86-year-old female with past medical history of diabetes mellitus type 2, hypertension, osteoarthritis with right knee weakness who complains of generalized weakness that is worsened over the past several days. Family brought her in today because they were unable to help her with her daily activities. Patient does live at home with her daughter and son. Apparently they do want to consider to go to a nursing facility for better care. Beside this point, patient does also have burning upon urination and also right knee weakness and some pain during ambulation. Denies nausea vomiting, fevers, chills, chest pain, shortness of breath, abdominal pain, cough, hematuria or bloody stools or diarrhea. 07/30/2021: Patient seen and evaluated. No acute events overnight. She worked with PT today who recommended longterm with rolling walker. We will continue Rocephin daily for acute cystitis; urine cultures pending. Anticipate discharge to SNU in the next day or so. Will add chlorthalidone for better blood pressure control. 07/31/2021: Patient seen resting comfortably in her chair. She has worked with PT and OT, both recommending longterm for period of 2 weeks. Urine culture grew normal genitourinary aaron, not indicative of infection. Will discontinue Rocephin. I believe a referral has been sent to [facility]. Vitals/I&O Vitals/I&O: Vital Signs Date Time Temp Pulse Resp B/P (MAP) Pulse Ox O2 Delivery O2 Flow Rate FiO2 07/31/21 10:53 98.0 68 22 155/47 (83) 97 Room Air 98.0 I & O 07/30/21 07/30/21 07/31/21 15:00 23:00 07:00 Intake Total 120 ml Output Total 350 ml 350 ml Balance -230 ml -350 ml Physical Exam General: Alert, No acute distress Heart: Regular rate Lungs: Clear, Other Abdomen: Soft, No tenderness Extremities: No clubbing, No cyanosis Skin: No rashes, No breakdown Labs Labs: Laboratory Tests Test 07/30/21 17:19 07/30/21 21:26 07/31/21 04:15 07/31/21 07:52 Glucose (Fingerstick) 177 mg/dL (70-99) 156 mg/dL (70-99) 99 mg/dL (70-99) White Blood Count 8.9 x10^3/uL (4.0-11.0) Red Blood Count 3.35 x10^6/uL (3.50-5.40) Hemoglobin 9.7 g/dL (12.0-15.5) Hematocrit 30.4 % (36.0-47.0) Mean Corpuscular Volume 91 fL (79-100) Mean Corpuscular Hemoglobin 29 pg (25-35) Mean Corpuscular Hemoglobin Concent 32 g/dL (31-37) Red Cell Distribution Width 14.3 % (11.5-14.5) Platelet Count 214 x10^3/uL (140-400) Neutrophils (%) (Auto) 66 % (31-73) Lymphocytes (%) (Auto) 19 % (24-48) Monocytes (%) (Auto) 11 % (0-9) Eosinophils (%) (Auto) 4 % (0-3) Basophils (%) (Auto) 1 % (0-3) Neutrophils # (Auto) 5.8 x10^3/uL (1.8-7.7) Lymphocytes # (Auto) 1.7 x10^3/uL (1.0-4.8) Monocytes # (Auto) 1.0 x10^3/uL (0.0-1.1) Eosinophils # (Auto) 0.3 x10^3/uL (0.0-0.7) Basophils # (Auto) 0.1 x10^3/uL (0.0-0.2) Sodium Level 140 mmol/L (136-145) Potassium Level 4.3 mmol/L (3.5-5.1) Chloride Level 107 mmol/L (98-107) Carbon Dioxide Level 23 mmol/L (21-32) Anion Gap 10 (6-14) Blood Urea Nitrogen 21 mg/dL (7-20) Creatinine 1.2 mg/dL (0.6-1.0) Estimated GFR (Cockcroft-Gault) 42.8 Glucose Level 97 mg/dL (70-99) Calcium Level 8.5 mg/dL (8.5-10.1) Magnesium Level 2.1 mg/dL (1.8-2.4) Test 07/31/21 12:27 Glucose (Fingerstick) 129 mg/dL (70-99) Assessment and Plan Assessmemt and Plan Problems Medical Problems: (1) Weakness Status: Acute Comment Review of Relevant I have reviewed the following items noam (where applicable) has been applied. Medications: Current Medications Medications (Trade) Dose Ordered Sig/[place] Route PRN Reason Start Time Stop Time Status Last Admin Dose Admin Chlorthalidone (Thalitone) 25 mg DAILY PO 07/31/21 09:00 07/31/21 08:43 Justifications for Admission Other Justification Multiple falls and weakness SHAMAR DUVALL MD Jul 31, 2021 12:54
--- NOTE | 2021-07-31 13:38 | NUR ---
SW following. Discussed with RN, pt accepted at [facility], can discharge there tomorrow (08/01/21). SW will continue to follow.
[2021-07-31 15:00] VITALS: BP 151/49
[2021-07-31 19:00] VITALS: BP 116/50
[2021-07-31] MEDS: INSULIN GLARGINE SYRINGE. SQ SCH (20:51)
[2021-07-31 22:40] VITALS: BP 158/53
[2021-08-01 07:00] VITALS: BP 189/62
[2021-08-01 07:41] LABS: CALCIUM 8.6 mg/dL (8.5-10.1); CREATININE 1.1 mg/dL (0.6-1.0); GFR 47.3; MAGNESIUM 2.1 mg/dL (1.8-2.4); POTASSIUM 4.2 mmol/L (3.5-5.1)
[2021-08-01 07:50] LABS: BASO # 0.1 x10^3/uL (0.0-0.2); BASO % 1 % (0-3); EOS # 0.3 x10^3/uL (0.0-0.7); EOS % 4 % (0-3); LYMPH # 1.5 x10^3/uL (1.0-4.8); LYMPH % 17 % (24-48); MEAN CORPUSCULAR HEMOGLOBIN 29 pg (25-35); MEAN CORPUSCULAR HGB CONC 32 g/dL (31-37); MEAN CORPUSCULAR VOLUME 90 fL (79-100); MONO # 0.9 x10^3/uL (0.0-1.1); MONO % 10 % (0-9); NEUT % 68 % (31-73); PLATELET COUNT 226 x10^3/uL (140-400); RED BLOOD COUNT 3.43 x10^6/uL (3.50-5.40); RED CELL DISTRIBUTION WIDTH 14.4 % (11.5-14.5); WHITE BLOOD COUNT 8.8 x10^3/uL (4.0-11.0)
[2021-08-01] MEDS: INSULIN LISPRO 300 UNITS/3 ML VIAL. SQ SCH ×2 (08:00→12:00)
[2021-08-01] MEDS: DICLOFENAC SODIUM 1% TOPICAL GEL 100GM TUBE. TP SCH (08:46)
[2021-08-01] MEDS: ASPIRIN 325 MG TABLET PO SCH (08:51)
[2021-08-01] MEDS: GABAPENTIN 100 MG CAPSULE. PO SCH (08:51)
[2021-08-01] MEDS: LACTOBACILLUS RHAMNOSUS GG 1 CAPSULE. PO SCH (08:52)
[2021-08-01] MEDS: CHLORTHALIDONE 25 MG TABLET. PO SCH (08:52)
[2021-08-01] MEDS: metFORMIN 500 MG TABLET PO SCH (08:52)
[2021-08-01] MEDS: hydrALAZINE 20 MG/ML VIAL. IVP PRN (08:54)
[2021-08-01] MEDS: ENOXAPARIN 40 MG/0.4 ML SYRINGE. SQ SCH (08:55)
[2021-08-01] MEDS: OXYBUTYNIN CHLORIDE 5 MG TABLET PO SCH (08:59)
--- NOTE | 2021-08-01 10:50 | PDOC ---
[employer] PROGRESS NOTE Date of Service DOS: DATE: 08/01/21 TIME: 10:49 Chief Complaint Chief Complaint Hypertensive urgency Generalized weakness Acute cystitis Anemia of chronic disease, normocytic History of hypertension History of diabetes mellitus type 2 History of osteoarthritis, especially of the right knee Admit to hospitalist for further management Resume home antihypertensive medications Continue R ISS and Accu-Cheks Continue empiric IV antibiotics Pending urine cultures Social work consult PT OT evaluation Labetalol IV as needed for systolic blood pressure greater than 180 Lovenox for DVT prophylaxis ADA diet CODE STATUS FULL Discussed with RN and SW Disposition inpatient management as above DPOA: Daughter History of Present Illness History of Present Illness 86-year-old female with past medical history of diabetes mellitus type 2, hypertension, osteoarthritis with right knee weakness who complains of generalized weakness that is worsened over the past several days. Family brought her in today because they were unable to help her with her daily activities. Patient does live at home with her daughter and son. Apparently they do want to consider to go to a nursing facility for better care. Beside this point, patient does also have burning upon urination and also right knee weakness and some pain during ambulation. Denies nausea vomiting, fevers, chills, chest pain, shortness of breath, abdominal pain, cough, hematuria or bloody stools or diarrhea. 07/30/2021: Patient seen and evaluated. No acute events overnight. She worked with PT today who recommended [facility] with rolling walker. We will continue Rocephin daily for acute cystitis; urine cultures pending. Anticipate discharge to SNU in the next day or so. Will add chlorthalidone for better blood pressure control. 07/31/2021: Patient seen resting comfortably in her chair. She has worked with PT and OT, both recommending [facility] for period of 2 weeks. Urine culture grew normal genitourinary aaron, not indicative of infection. Will discontinue Rocephin. I believe a referral has been sent to [facility]. 08/01/2021: Patient seen and evaluated, resting comfortably in bed. She has no complaints today, denies any pain. She is been accepted to [facility] for skilled rehab. Greater than 30 minutes spent managing the discharge of this patient. Vitals/I&O Vitals/I&O: Vital Signs Date Time Temp Pulse Resp B/P (MAP) Pulse Ox O2 Delivery O2 Flow Rate FiO2 08/01/21 08:54 56 189/62 08/01/21 07:00 97.9 18 96 Room Air 97.9 I & O 07/31/21 07/31/21 08/01/21 15:00 23:00 07:00 Intake Total 180 ml 50 ml 0 ml Output Total 600 ml 2000 ml Balance -420 ml 50 ml -2000 ml Physical Exam General: Alert, No acute distress Heart: Regular rate Lungs: Clear, Other Abdomen: Soft, No tenderness Extremities: No clubbing, No cyanosis Skin: No rashes, No breakdown Labs Labs: Laboratory Tests Test 07/31/21 12:27 07/31/21 16:54 07/31/21 20:44 08/01/21 06:40 Glucose (Fingerstick) 129 mg/dL (70-99) 104 mg/dL (70-99) 144 mg/dL (70-99) White Blood Count 8.8 x10^3/uL (4.0-11.0) Red Blood Count 3.43 x10^6/uL (3.50-5.40) Hemoglobin 10.0 g/dL (12.0-15.5) Hematocrit 31.0 % (36.0-47.0) Mean Corpuscular Volume 90 fL (79-100) Mean Corpuscular Hemoglobin 29 pg (25-35) Mean Corpuscular Hemoglobin Concent 32 g/dL (31-37) Red Cell Distribution Width 14.4 % (11.5-14.5) Platelet Count 226 x10^3/uL (140-400) Neutrophils (%) (Auto) 68 % (31-73) Lymphocytes (%) (Auto) 17 % (24-48) Monocytes (%) (Auto) 10 % (0-9) Eosinophils (%) (Auto) 4 % (0-3) Basophils (%) (Auto) 1 % (0-3) Neutrophils # (Auto) 6.0 x10^3/uL (1.8-7.7) Lymphocytes # (Auto) 1.5 x10^3/uL (1.0-4.8) Monocytes # (Auto) 0.9 x10^3/uL (0.0-1.1) Eosinophils # (Auto) 0.3 x10^3/uL (0.0-0.7) Basophils # (Auto) 0.1 x10^3/uL (0.0-0.2) Sodium Level 138 mmol/L (136-145) Potassium Level 4.2 mmol/L (3.5-5.1) Chloride Level 106 mmol/L (98-107) Carbon Dioxide Level 26 mmol/L (21-32) Anion Gap 6 (6-14) Blood Urea Nitrogen 19 mg/dL (7-20) Creatinine 1.1 mg/dL (0.6-1.0) Estimated GFR (Cockcroft-Gault) 47.3 Glucose Level 69 mg/dL (70-99) Calcium Level 8.6 mg/dL (8.5-10.1) Magnesium Level 2.1 mg/dL (1.8-2.4) Test 08/01/21 07:25 Glucose (Fingerstick) 87 mg/dL (70-99) Assessment and Plan Assessmemt and Plan Problems Medical Problems: (1) Weakness Status: Acute Comment Review of Relevant I have reviewed the following items noam (where applicable) has been applied. Justifications for Admission Other Justification Multiple falls and weakness SHAMAR DUVALL MD Aug 01, 2021 10:50
--- NOTE | 2021-08-01 10:52 | PDOC3 ---
Discharge Summary Visit Information Date of Admission: Jul 29, 2021 Date of Discharge: Aug 01, 2021 Final Diagnosis Problems Medical Problems: (1) Weakness Status: Acute Brief Hospital Course Allergies Allergies Coded Allergies Type Severity Reaction Last Updated Verified No Known Drug Allergies 06/27/21 No Vital Signs Vital Signs Date Time Temp Pulse Resp B/P (MAP) Pulse Ox O2 Delivery O2 Flow Rate FiO2 08/01/21 08:54 56 189/62 08/01/21 07:00 97.9 18 96 Room Air 97.9 Lab Results Laboratory Tests Test 07/30/21 11:24 07/30/21 17:19 07/30/21 21:26 07/31/21 04:15 Glucose (Fingerstick) 138 mg/dL (70-99) 177 mg/dL (70-99) 156 mg/dL (70-99) White Blood Count 8.9 x10^3/uL (4.0-11.0) Red Blood Count 3.35 x10^6/uL (3.50-5.40) Hemoglobin 9.7 g/dL (12.0-15.5) Hematocrit 30.4 % (36.0-47.0) Mean Corpuscular Volume 91 fL (79-100) Mean Corpuscular Hemoglobin 29 pg (25-35) Mean Corpuscular Hemoglobin Concent 32 g/dL (31-37) Red Cell Distribution Width 14.3 % (11.5-14.5) Platelet Count 214 x10^3/uL (140-400) Neutrophils (%) (Auto) 66 % (31-73) Lymphocytes (%) (Auto) 19 % (24-48) Monocytes (%) (Auto) 11 % (0-9) Eosinophils (%) (Auto) 4 % (0-3) Basophils (%) (Auto) 1 % (0-3) Neutrophils # (Auto) 5.8 x10^3/uL (1.8-7.7) Lymphocytes # (Auto) 1.7 x10^3/uL (1.0-4.8) Monocytes # (Auto) 1.0 x10^3/uL (0.0-1.1) Eosinophils # (Auto) 0.3 x10^3/uL (0.0-0.7) Basophils # (Auto) 0.1 x10^3/uL (0.0-0.2) Sodium Level 140 mmol/L (136-145) Potassium Level 4.3 mmol/L (3.5-5.1) Chloride Level 107 mmol/L (98-107) Carbon Dioxide Level 23 mmol/L (21-32) Anion Gap 10 (6-14) Blood Urea Nitrogen 21 mg/dL (7-20) Creatinine 1.2 mg/dL (0.6-1.0) Estimated GFR (Cockcroft-Gault) 42.8 Glucose Level 97 mg/dL (70-99) Calcium Level 8.5 mg/dL (8.5-10.1) Magnesium Level 2.1 mg/dL (1.8-2.4) Test 07/31/21 07:52 07/31/21 08:45 07/31/21 12:27 07/31/21 16:54 Glucose (Fingerstick) 99 mg/dL (70-99) 129 mg/dL (70-99) 104 mg/dL (70-99) SARS-CoV-2 RNA (DIONNE) Negative (Negative) Test 07/31/21 20:44 08/01/21 06:40 08/01/21 07:25 Glucose (Fingerstick) 144 mg/dL (70-99) 87 mg/dL (70-99) White Blood Count 8.8 x10^3/uL (4.0-11.0) Red Blood Count 3.43 x10^6/uL (3.50-5.40) Hemoglobin 10.0 g/dL (12.0-15.5) Hematocrit 31.0 % (36.0-47.0) Mean Corpuscular Volume 90 fL (79-100) Mean Corpuscular Hemoglobin 29 pg (25-35) Mean Corpuscular Hemoglobin Concent 32 g/dL (31-37) Red Cell Distribution Width 14.4 % (11.5-14.5) Platelet Count 226 x10^3/uL (140-400) Neutrophils (%) (Auto) 68 % (31-73) Lymphocytes (%) (Auto) 17 % (24-48) Monocytes (%) (Auto) 10 % (0-9) Eosinophils (%) (Auto) 4 % (0-3) Basophils (%) (Auto) 1 % (0-3) Neutrophils # (Auto) 6.0 x10^3/uL (1.8-7.7) Lymphocytes # (Auto) 1.5 x10^3/uL (1.0-4.8) Monocytes # (Auto) 0.9 x10^3/uL (0.0-1.1) Eosinophils # (Auto) 0.3 x10^3/uL (0.0-0.7) Basophils # (Auto) 0.1 x10^3/uL (0.0-0.2) Sodium Level 138 mmol/L (136-145) Potassium Level 4.2 mmol/L (3.5-5.1) Chloride Level 106 mmol/L (98-107) Carbon Dioxide Level 26 mmol/L (21-32) Anion Gap 6 (6-14) Blood Urea Nitrogen 19 mg/dL (7-20) Creatinine 1.1 mg/dL (0.6-1.0) Estimated GFR (Cockcroft-Gault) 47.3 Glucose Level 69 mg/dL (70-99) Calcium Level 8.6 mg/dL (8.5-10.1) Magnesium Level 2.1 mg/dL (1.8-2.4) Laboratory Tests Test 07/31/21 12:27 07/31/21 16:54 07/31/21 20:44 08/01/21 06:40 Glucose (Fingerstick) 129 mg/dL (70-99) 104 mg/dL (70-99) 144 mg/dL (70-99) White Blood Count 8.8 x10^3/uL (4.0-11.0) Red Blood Count 3.43 x10^6/uL (3.50-5.40) Hemoglobin 10.0 g/dL (12.0-15.5) Hematocrit 31.0 % (36.0-47.0) Mean Corpuscular Volume 90 fL (79-100) Mean Corpuscular Hemoglobin 29 pg (25-35) Mean Corpuscular Hemoglobin Concent 32 g/dL (31-37) Red Cell Distribution Width 14.4 % (11.5-14.5) Platelet Count 226 x10^3/uL (140-400) Neutrophils (%) (Auto) 68 % (31-73) Lymphocytes (%) (Auto) 17 % (24-48) Monocytes (%) (Auto) 10 % (0-9) Eosinophils (%) (Auto) 4 % (0-3) Basophils (%) (Auto) 1 % (0-3) Neutrophils # (Auto) 6.0 x10^3/uL (1.8-7.7) Lymphocytes # (Auto) 1.5 x10^3/uL (1.0-4.8) Monocytes # (Auto) 0.9 x10^3/uL (0.0-1.1) Eosinophils # (Auto) 0.3 x10^3/uL (0.0-0.7) Basophils # (Auto) 0.1 x10^3/uL (0.0-0.2) Sodium Level 138 mmol/L (136-145) Potassium Level 4.2 mmol/L (3.5-5.1) Chloride Level 106 mmol/L (98-107) Carbon Dioxide Level 26 mmol/L (21-32) Anion Gap 6 (6-14) Blood Urea Nitrogen 19 mg/dL (7-20) Creatinine 1.1 mg/dL (0.6-1.0) Estimated GFR (Cockcroft-Gault) 47.3 Glucose Level 69 mg/dL (70-99) Calcium Level 8.6 mg/dL (8.5-10.1) Magnesium Level 2.1 mg/dL (1.8-2.4) Test 08/01/21 07:25 Glucose (Fingerstick) 87 mg/dL (70-99) Brief Hospital Course Ms. Casanova is a 86 old female who presented with weakness, suspected UTI. She was treated with IV Rocephin empirically. She work with PT, recommended SNU. Urine cultures came back negative for acute infection. She was accepted to rehab at [facility], and family is agreeable. Discharge Information Condition at Discharge: Stable Disposition/Orders: D/C to Another Facility Scheduled Aspirin (Aspirin) 325 Mg Tablet, 1 TAB PO DAILY for heart, #30 Ref 5 (Reported) Entered as Reported by: DIANNE COVARRUBIAS on 06/30/20 164 Last Action: Continued on 07/29/211930 by DAYANARA JACK Diclofenac Sodium (Voltaren Arthritis Pain) 20 Gm Gel..gram., 1 LETTY TP BID, #20 Prescribed by: Theodora Gillis APRN on 06/23/211739 Last Action: Continued on 07/29/211930 by DAYANARA JACK Gabapentin (Gabapentin ) 100 Mg Capsule, 100 MG PO TID for NEUROGENIC PAIN, #21 Prescribed by: Theodora Gillis APRN on 06/23/211739 Last Action: Continued on 07/29/211930 by DAYANARA JACK Insulin Glargine,Hum.rec.anlog (Lantus Solostar) 100 Unit/1 Ml Insuln.pen, 14 UNIT SQ QHS for dm, #15 Ref 3 (Reported) Entered as Reported by: DAYANARA JACK on 07/29/211839 Last Action: Converted on 07/29/211930 by DAYANARA JACK Metformin Hcl (Metformin Hcl) 500 Mg Tablet, 500 MG PO BIDWMEALS for ANTI-DIABETIC, Ref 0 (Reported) Entered as Reported by: DAYANARA JACK on 07/29/211839 Last Action: Continued on 07/29/211930 by DAYANARA JACK Oxybutynin Chloride (Oxybutynin Chloride) 5 Mg Tablet, 1 TAB PO DAILY for , #60 Ref 11 (Reported) Entered as Reported by: DALIA SAHU RN on 01/23/21 0730 Last Action: Continued on 07/29/211930 by DAYANARA JACK Justicifation of Admission Dx: Justifications for Admission: Justification of Admission Dx: N/A Sepsis: Bacteremia SHAMAR DUVALL MD Aug 01, 2021 10:52
--- NOTE | 2021-08-01 10:54 | SNU/HH DC ---
DISCHARGE ORDERS DISCHARGE INFORMATION: DISCHARGE DATE: Aug 01, 2021 FINAL DIAGNOSIS Problems Medical Problems: (1) Weakness Status: Acute CONDITION ON DISCHARGE: Stable CODE STATUS: Code Status: DNR/DNI CORRECTION: SNF STAY <30 DAYS: Yes POST DISCHARGE ORDERS: ACTIVITY ORDERS: Activity as tolerated WEIGHT BEARING STATUS: As tolerated DIET AFTER DISCHARGE: ADA WOUND/INCISION CARE: Change dressing CHECKS AFTER DISCHARGE: CHECKS AFTER DISCHARGE: Check blood press - daily, Check blood sugar, ac/hs, Check your Temp as needed TREATMENT/EQUIPMENT ORDERS: ADAPTIVE EQUIPMENT NEEDED: None, Front wheeled walker Physical Therapy For: Evalulation/Treatment Occupational Therapy For: Evaluation/Treatment DISCHARGE MEDICATIONS: Home Meds Active Scripts Diclofenac Sodium (Voltaren Arthritis Pain) 20 Gm Gel..gram., 1 LETTY TP BID, #20 GM Prov:ZELDA ESPINOZA BOOT REPAIRER 06/23/21 Gabapentin (GABAPENTIN ) 100 Mg Capsule, 100 MG PO TID for NEUROGENIC PAIN, #21 CAP Prov:ZELDA ESPINOZA BOOT REPAIRER 06/23/21 Reported Medications Metformin Hcl (METFORMIN HCL) 500 Mg Tablet, 500 MG PO BIDWMEALS for ANTI- DIABETIC, TAB 0 Refills 07/29/21 Insulin Glargine,Hum.rec.anlog (LANTUS SOLOSTAR) 100 Unit/1 Ml Insuln.pen, 14 UNIT SQ QHS for dm, #15 ML 3 Refills 07/29/21 Oxybutynin Chloride (OXYBUTYNIN CHLORIDE) 5 Mg Tablet, 1 TAB PO DAILY for , #60 TAB 11 Refills 01/23/21 Aspirin (ASPIRIN) 325 Mg Tablet, 1 TAB PO DAILY for heart, #30 TAB 5 Refills 06/30/20 SHAMAR DUVALL MD Aug 01, 2021 10:54
[2021-08-01 11:00] VITALS: BP 144/52
--- NOTE | 2021-08-01 11:03 | NUR ---
SW following. Discussed with RN, discharge orders sent to [facility]. Awaiting return call from [facility] transportation regarding transport time. Pt's son, Chris notified of discharge. ROSE MARY will continue to follow. Addendum: 08/01/21 at 1132 by TESSA BAZZI Transportation arranged with [facility] transport for 1230. RN and pt's son notified.
--- NOTE | 2021-08-01 12:21 | NUR ---
Patient discharged to [facility] today via wheelchair, accompanied by the facility transporter. Patient is stable, IV removed, the nursing communication was called to [facility] and the nurse taking report was Martín BRYANT.
== END 2021-08-01 12:25 | DRG 690 ==
LOC: ER 03:43 → ED HOLD 03:44 → 4 NORTH 05:54 → OBSVTOIN 07-30 09:06
PROVIDERS: ADMIT Internal Medicine; ATTEND Internal Medicine
DX: N30.00 Acute cystitis without hematuria (principal); I16.0 Hypertensive urgency; D63.8 Anemia in other chronic diseases classified elsewhere; E11.9 Type 2 diabetes mellitus without complications; I10 Essential (primary) hypertension; M17.11 Unilateral primary osteoarthritis, right knee; R29.6 Repeated falls; Z79.4 Long term (current) use of insulin; Z79.82 Long term (current) use of aspirin; Z79.899 Other long term (current) drug therapy; Z96.652 Presence of left artificial knee joint; Z98.51 Tubal ligation status
CPT/HCPCS: 36415; 73562; 80048; 81001; 82306; 82962; 83735; 84100; 84443; 85025; 87086; G0378; G0379; J0360; J0696; J1650; J1815; J7030; U0003; U0005; 97535-GO; 99285-25

== ENCOUNTER → 2021-10-31 | Outpatient (CLI) | payer MEDICARE ==
[2021-10-31 11:39] LABS: ALBUMIN 3.3 g/dL (3.4-5.0); ALBUMIN/GLOBULIN RATIO 0.8 (1.0-1.7); CALCIUM 8.7 mg/dL (8.5-10.1); CREATININE 1.5 mg/dL (0.6-1.0); GFR 33.1; POTASSIUM 5.3 mmol/L (3.5-5.1); TOTAL BILIRUBIN 0.2 mg/dL (0.2-1.0); TOTAL PROTEIN 7.6 g/dL (6.4-8.2)
== END ==
LOC: SPEC 08:03
PROVIDERS: ATTEND Family Medicine
DX: E11.22 Type 2 diabetes mellitus with diabetic chronic kidney disease (principal); I50.9 Heart failure, unspecified
CPT/HCPCS: 36415; 80053; 83036

== ENCOUNTER → 2021-11-28 | Outpatient (CLI) | payer MEDICARE ==
[2021-11-28 12:56] LABS: BILIRUBIN,URINE NEGATIVE (NEG); COLOR,URINE YELLOW
[2021-11-28 12:57] LABS: CLARITY,URINE TURBID
[2021-11-28 12:58] LABS: BACTERIA,URINE MANY /HPF (0-FEW); NITRITE,URINE NEGATIVE (NEG); PROTEIN,URINE 100 mg/dL (NEG-TRACE); UROBILINOGEN,URINE 0.2 mg/dL (0.2 mg/dL); WBC,URINE TNTC /HPF (0-4)
== END ==
LOC: SPEC 12:40
PROVIDERS: ATTEND Family Medicine
DX: R30.9 Painful micturition, unspecified (principal)
CPT/HCPCS: 81001; 87086

== ENCOUNTER → 2022-01-30 | Outpatient (CLI) | payer MEDICARE ==
[2022-01-30 13:40] LABS: BILIRUBIN,URINE NEGATIVE (NEG); CLARITY,URINE TURBID; COLOR,URINE YELLOW; NITRITE,URINE POSITIVE (NEG); PH,URINE 5.5 (<5.0-8.0); PROTEIN,URINE 100 mg/dL (NEG-TRACE); UROBILINOGEN,URINE 0.2 mg/dL (0.2 mg/dL)
[2022-01-30 13:43] LABS: BACTERIA,URINE MANY /HPF (0-FEW); RBC,URINE FIELD OBSCURED /HPF (0-2); WBC,URINE TNTC /HPF (0-4)
== END ==
LOC: SPEC 13:10
PROVIDERS: ATTEND Family Medicine
DX: R41.0 Disorientation, unspecified (principal)
CPT/HCPCS: 81001; 87077; 87086; 87186